=== PATIENT | female | born 2000 | race Hispanic/Latino ===

== ENCOUNTER 2021-01-08 13:20 | Outpatient (CLI) | payer OTHER, SELFPAY ==
--- NOTE | ~2021-01-08 | US_ITS ---
EXAMINATION: US thyroid DATE: 01/08/2021 14:02 INDICATION: Neck lump. TECHNIQUE: Multiple ultrasound images of the thyroid were obtained. COMPARISON: None. FINDINGS: The right thyroid lobe measures 5.3 x 1.9 x 1.4 cm. The left thyroid lobe measures 4.5 x 1.7 x 1.3 c m. In the thyroid isthmus, there is a 1.8 cm solid, hypoechoic, tyalj-yvuu-lcox nodule with smooth m argin without echogenic foci (TI-RADS TR4). IMPRESSION: 1. Thyroid nodule. Ultrasound-guided fine-needle aspiration is recommended. Reviewed, dictated and finalized at location A. R OPERATOR
[2021-01-08 15:19] LABS: Thyroid Stimulating Hormone 0.576 uIU/mL (0.465-4.680)
[2021-01-08 15:33] LABS: Free T4 Free Thyroxine 1.63 ng/mL (0.78-2.19)
[2021-01-12 06:13] LABS: Thyroid Peroxidase Antibodies 5 IU/mL (<9)
== END 2021-01-08 13:21 | disposition home or self-care (01) ==
PROVIDERS: PCP Registered Nurse; Visit Provider Registered Nurse
DX: R22.1 Localized swelling, mass and lump, neck (principal); E04.1 Nontoxic single thyroid nodule
CPT/HCPCS: 36415; 76536; 84439; 84443; 86376

== ENCOUNTER 2021-04-12 10:45 | Observation (INO) | payer OTHER, SELFPAY ==
[2021-04-12] VITALS (41 sets, daily range): BP systolic 102–123; BP diastolic 70–90; PULSE 70–108; RESP 8–26; TEMP 36.4–37.1; O2SAT 94–100; BMI 25.9
--- NOTE | ~2021-04-12 | US_ITS ---
EXAMINATION: US right upper quadrant DATE: 04/12/2021 14:16 INDICATION: Abdominal pain. Acute cholecystitis. TECHNIQUE: Multiple grayscale and Doppler ultrasound images of the abdomen were obtained. COMPARISON: CT abdomen and pelvis 04/12/2021 FINDINGS: The visualized portions of the head and body of the pancreas are normal. There is normal fl ow in main portal vein. The gallbladder is normal in size and contains gallstones. Gallbladder wall t hickening is noted. There is a positive sonographic Nina sign. The common duct is normal and measur es 5 mm. IMPRESSION: 1. Acute cholecystitis. Reviewed, dictated and finalized at location A. IMPRESSION: 1. Acute cholecystitis.
--- NOTE | ~2021-04-12 | CT_ITS ---
EXAMINATION: CT abdomen pelvis w con EXAM DATE: 04/12/2021 13:07 INDICATION: Upper abdominal pain for a week. TECHNIQUE: Spiral CT of the abdomen and pelvis was performed following intravenous injection of 100 m L Omnipaque 350. Axial, coronal and sagittal images of the abdomen and pelvis were reviewed. The do se-length product (DLP) for this examination was 294.32 mGy-cm. The exposure was tailored according to patient size (auto mA exposure control), and iterative reconstruction (ASIR) was used as additiona l dose reduction technique. There is no prior study for comparison. FINDINGS: Gallbladder mucosa is enhancing, with surrounding fluid or edematous wall. Gallbladder only mildly distended. Appearance suspicious for acute cholecystitis. No calcified cholelithiasis or bili lenard dilation. The liver, spleen, adrenal glands and pancreas are unremarkable. Kidneys enhance symmet rically, no hydronephrosis. The uterus is unremarkable. The bladder is unremarkable. There is no r etroperitoneal or pelvic lymphadenopathy. The appendix is normal. The stomach and small bowel are unremarkable. There is expected amount of c olonic stool. No free intraperitoneal gas. The heart is normal in size. There are no pericardial or pleural effusions. The lung bases are unremarkable. There are no osteoblastic or osteolytic les ions identified. IMPRESSION: Probable acute cholecystitis; recommend right upper quadrant sonogram. Reviewed, dictated and finalized at location B. IMPRESSION: Probable acute cholecystitis; recommend right upper quadrant sonogr am.
--- NOTE | 2021-04-12 10:56 | ECG_ITS ---
Measurements Intervals [place] Rate: 96 P: 53 ME: 133 QRS: 34 QRSD: 97 T: 37 QT: 345 QTc: 437 Interpretive Statements SINUS RHYTHM BASELINE ARTIFACT- I, II, III, AVR, AVL, AVF, V1-V5 NORMAL ECG Electronically Signed On 04-12-2021 11:22:18 CDT by Jake Bermudez D.O.
--- NOTE | 2021-04-12 11:21 | ED.CHESTPAIN ---
HPI - Chest Pain General Chief Complaint: Chest Pain Stated Complaint: Abd Pain/vomiting/Chest Pain Time Seen by Provider: 04/12/21 11:03 Source: patient Mode of arrival: ambulatory Limitations: no limitations History of Present Illness HPI narrative: Patient is a 21 year old female who presents with multiple complaints. Patient is reporting epigastric pain that radiates to back and also generalized abdominal pain x 3-4 days. She reports nausea without vomiting, denies constipation or diarrhea. She reports a history of colitis and colonoscopy in the past. She reports pain is worse with laying down and reports a burning sensation. Patient also reports LMP was 02/17 with the possibility of . She denies shortness of breath. She denies taking otc medications prior to arrival. MD complaint: other (epigastric pain) Related Data Home Medications Medication Instructions Recorded Confirmed bupropion HCl mg PO 04/12/21 lamotrigine 04/12/21 spironolactone 04/12/21 Allergies Allergy/AdvReac Type Severity Reaction Status Date / Time No Known Allergies Allergy Unverified 04/12/21 11:08 Review of Systems Review of Systems: Narrative: CONSTITUTIONAL: Denies fever, chills, or sweats. EYES: Denies visual changes, redness, or discharge. ENT: Denies rhinorrhea, congestion, sore throat, or otalgia. CARDIOVASCULAR: Denies chest pain, palpitations, or edema. RESPIRATORY: Denies cough or dyspnea. GASTROINTESTINAL: Reports epigastric pain intermittently x3 to 4 days with nausea, denies vomiting or diarrhea GENITOURINARY: Denies dysuria or hematuria. SKIN: Denies rash or itching. MUSCULOSKELETAL: Denies back pain, joint pain, or myalgia. NEUROLOGIC: Denies headache, numbness, dizziness, or weakness. PSYCHIATRIC: Denies anxiety or depression. 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 Please see nursing chart for further information. There is no relevant family history pertinent to the presenting complaint. Exam Narrative: Exam Narrative: GENERAL: Well-appearing, well-nourished, and in no acute distress. HEAD: Normocephalic, atraumatic. EYES: EOMI. No redness or drainage. Conjunctiva are normal. ENT: Mucous membranes pink and moist. Throat normal. Uvula midline. NECK: AROM. Supple. No lymphadenopathy. CHEST: No respiratory distress. Clear to auscultation. HEART: Regular rate and rhythm. No murmur appreciated. Normal peripheral pulses. GI: Soft, generalized tenderness with palpation. No distention. Bowel sounds normal in all quadrants. MUSCULOSKELETAL: No bony tenderness. EXTREMITIES: Normal range of motion. No edema. SKIN: Warm, dry, no rash. NEURO: No focal deficits. Alert and oriented x3. Gait steady. PSYCH: Normal affect. No signs of depression or anxiety. Course Vital Signs Vital signs: Vital Signs Pulse Rate 97 04/12/21 10:53 Respiratory Rate 19 04/12/21 10:53 Pulse Oximetry 100 04/12/21 10:53 Temperature 37.1 C 04/12/21 10:59 Pulse Rate 76 04/12/21 16:46 Respiratory Rate 18 04/12/21 16:46 Blood Pressure 106/85 04/12/21 16:45 Pulse Oximetry 100 04/12/21 16:46 Reviewed-patient is info
[2021-04-12 11:54] LABS: Basophils Percent Auto 0.5 % (0.2-1.2); Eosinophils Absolute Auto 0.1 K/mm3 (0-0.3); Eosinophils Percent Auto 0.6 % (0-4.4); Hematocrit 37.9 % (37.0-47.0); Hemoglobin 12.3 g/dL (12.0-15.0); Immature Granulocyte Absolute 0.02 K/mm3 (0.00-0.031); Immature Granulocyte Percent A 0.3 % (0-0.5); Lymphocytes Absolute Auto 1.82 K/mm3 (0.9-3.2); Lymphocytes Percent Auto 23.5 % (18.3-44.2); Mean Corpuscular HGB Conc 32.5 g/dl (32-36); Mean Corpuscular Hemoglobin 29.7 pg (26-34); Mean Corpuscular Volume 91.5 fl (80-100); Mean Platelet Volume 8.8 fl (7.4-10.4); Monocytes Absolute Auto 0.8 K/mm3 (0.1-0.6); Monocytes Percent Auto 9.9 % (2.6-8.5); Neutrophils Absolute Auto 5.1 K/mm3 (1.3-6.7); Neutrophils Percent Auto 65.2 % (45.5-73.1); Platelet Count Result 507 k/mm3 (150-375); Red Blood Count 4.14 M/mm3 (4.2-5.4); Red Cell Distribution Width 12.4 % (11.5-14.5); White Blood Count 7.8 K/mm3 (4.5-10.0)
[2021-04-12 11:56] LABS: Add Urine Microscopic? NO; Appearance Urine Clear (Clear); Bilirubin Urine Negative (Negative); Blood Urine Negative (Negative); Color Urine Straw (Yellow); Glucose Urine UA Negative (Negative); Ketones Urine Negative (Negative); Leukocyte Esterase Ur Negative LEU/UL (Negative); Nitrate Urine Negative (Negative); Protein Urine Negative (Negative); Specific Grav Ur 1.008 (1.001-1.035); Urobilinogen Urine Negative mg/dL (<2.0)
[2021-04-12 12:03] LABS: Alanine Aminotransferase 15 U/L (4-35); Albumin Level 4.4 g/dL (3.5-5.1); Alkaline Phosphatase 85 U/L (38-126); Anion Gap 10 mmol/L (8-16); Aspartate Amino Transferase 28 U/L (14-36); Bilirubin,Total 0.5 mg/dL (0.2-1.3); Blood Urea Nitrogen 10 mg/dL (7-17); Calcium 9.5 mg/dL (8.4-10.2); Carbon Dioxide 26 mmol/L (22-30); Chloride 102 mmol/L (98-107); Estimated CRCL calculation 86 ml/min; Estimated Glomerular Filt Rate > 60; Glucose 104 mg/dL (65-105); Lipase 106 U/L (23-300); Potassium 4.2 mmol/L (3.4-5.0); Sodium 138 mmol/L (137-145)
[2021-04-12] MEDS: SODIUM CHLORIDE 0.9% IV 1,000 ML 999 ML IV CONT (12:48)
[2021-04-12 13:06] LABS: D Dimer 0.27 ug/mL (<0.48)
[2021-04-12] MEDS: ONDANSETRON INJ 4 MG/2 ML VIAL IV PUSH ×2 (15:44→20:46)
[2021-04-12] MEDS: MORPHINE SULFATE (*CRX) 4 MG/ML INJ IV PUSH ×2 (15:46→21:56)
--- NOTE | 2021-04-12 15:54 | PC.NURSE ---
Meds given IV for pain and nausea. Preparing to contact surgeon for consult. Pt's call light in reach and told to call for any assist due to receiving morphine.
--- NOTE | 2021-04-12 16:55 | PC.NURSE ---
Heike Ribeiro NP, speaking with surgeon regarding plan of care.
[2021-04-12] MEDS: KETOROLAC 30 MG/ML VIAL (*BKC) IV PUSH (17:08)
--- NOTE | 2021-04-12 19:30 | ADMGEN ---
This patient, Isabel Shahid, was admitted to Medical Room 347-01. Patient/family oriented to hospital policies and general routines including ID bracelet, bed and alarms, visiting hours, pain management, procedures, bathroom and other care routines, personal items, smoking policy, room service/diet, and visiting hours. Information on how to activate the Rapid Response Team has been discussed. Patient/Family are encouraged to report perceived risks to care and to ask questions if they do not understand what they are told or what they should do.
[2021-04-12] MEDS: SODIUM CHLORIDE 0.9% IV 1,000 ML 125 ML IV CONT (19:46)
[2021-04-13] VITALS (14 sets, daily range): BP systolic 105–121; BP diastolic 63–76; PULSE 72–105; RESP 14–20; TEMP 35.7–36.7; O2SAT 94–100
[2021-04-13] MEDS: SODIUM CHLORIDE 0.9% IV 1,000 ML 125 ML IV CONT (04:48)
[2021-04-13 06:16] LABS: Hematocrit 32.5 % (37.0-47.0); Hemoglobin 10.4 g/dL (12.0-15.0); Mean Corpuscular Volume 93.7 fl (80-100); Mean Platelet Volume 8.8 fl (7.4-10.4); Platelet Count Result 388 k/mm3 (150-375); Red Blood Count 3.47 M/mm3 (4.2-5.4); Red Cell Distribution Width 12.5 % (11.5-14.5); White Blood Count 4.9 K/mm3 (4.5-10.0)
[2021-04-13] MEDS: MORPHINE SULFATE (*CRX) 4 MG/ML INJ IV PUSH ×2 (06:16→13:54)
[2021-04-13] MEDS: ONDANSETRON INJ 4 MG/2 ML VIAL IV PUSH ×2 (06:16→17:39)
[2021-04-13 06:36] LABS: Alanine Aminotransferase 12 U/L (4-35); Albumin Level 3.2 g/dL (3.5-5.1); Alkaline Phosphatase 65 U/L (38-126); Anion Gap 5 mmol/L (8-16); Aspartate Amino Transferase 18 U/L (14-36); Bilirubin,Total 0.6 mg/dL (0.2-1.3); Blood Urea Nitrogen 6 mg/dL (7-17); Calcium 8.3 mg/dL (8.4-10.2); Carbon Dioxide 26 mmol/L (22-30); Chloride 107 mmol/L (98-107); Estimated CRCL calculation 76 ml/min; Estimated Glomerular Filt Rate > 60; Glucose 94 mg/dL (65-105); Potassium 3.8 mmol/L (3.4-5.0); Sodium 138 mmol/L (137-145)
--- NOTE | 2021-04-13 06:58 | PM.IMHP ---
H&P: HPI History of Present Illness Date/Time: 04/13/21 06:59 Chief Complaint: Epigastric and right upper quadrant pain Narrative: this is a 21-year-old woman who presented to the emergency department yesterday with upper abdominal pain. Her pain started 4 days prior and initially began at night. She did not identify any particular food that caused her pain. She was having nausea and vomiting associated with this as well as some occasional sweats. She did have some diarrhea as well. Prior to this she states that she would get occasional pains at night but did not associate this with anything in particular. In the emergency department CT showed findings consistent with acute cholecystitis and a gallbladder ultrasound confirmed cholelithiasis and cholecystitis. Her labs were otherwise normal. Pain was attempted to be controlled in the emergency department, but after multiple rounds of pain meds she was still experiencing significant pain. She was then admitted for further treatment. Review of Systems Review of Systems: All systems reviewed & are unremarkable except as noted in HPI and below Constitutional: Constitutional: Denies chills and Denies fever(s) Eyes: Eyes: Denies change in vision ENT: Denies hearing loss, Denies neck pain and Denies sore throat Cardiovascular: Cardiovascular: Denies chest pain and Denies dyspnea Respiratory: Respiratory: Denies cough, Denies dyspnea and Denies wheezing Gastrointestinal: Gastrointestinal: Reports as per HPI Genitourinary: Genitourinary: Denies hematuria and Denies dysuria Musculoskeletal: Musculoskeletal: Denies arthralgias, Denies joint swelling and Denies neck pain Allergic/Immunologic: Allergic/Immunologic: Denies wheezing [facility] Past Medical History Medical History Colitis Thyroid nodule 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, 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 Surgical History Surgical History History of colonoscopy Family History Family History Grandparent Diabetes mellitus Hypertension Grandparent Diabetes mellitus Hypertension Father Acute myocardial infarction Hypertension Grandparent Hypertension Grandparent Hypertension Social History Social History Smoking status: Never smoker Additional smoking assessment comments: Pt states that she smoked a herbal cigarette 2 days ago, does not routinely Alcohol intake: current Alcohol use details: Occasional Substance use: never Other substance usage details: does not even drink one alcoholic drink/week Living arrangements: with family Gender identity (if verbalized by the patient): Female Spiritual care concerns: No Meds Home Medications and Allergies Home Medications Medication Instructions Recorded Confirmed Type bupropion HCl 300 mg PO DAILY 04/12/21 04/12/21 History lamotrigine See Rx Instructions .ROUTE .COMPLEX 04/12/21 04/12/21 History spironolactone 50 mg PO DAILY 04/12/21 04/12/21 History Allergies Allergy/AdvReac Type Severity Reaction Status Date / Time No Known Allergies Allergy Verified 04/12/21 19:58 Vital Signs Vital Signs - 24 hr 04/12/21 10:53 04/12/21 10:54 04/12/21 10:59 Temperature 37.1 C Pulse Rate 97 105 H 106 H Respiratory Rate 19 17 18 Blood Pressure 120/86 120/86 Pulse Oximetry 100 100 100 04/12/21 11:01 04/12/21 11:05 04/12/21 11:15 Temperature Pulse Rate 94 106 H 89 Respiratory Rate 18 18 Blood Pressure 109/84 Pulse Oximetry 100 100 04/12/21 11:16 04/12/21 11:30 04/12/21 11:31 Temperature Pulse Rate 95 84 95 Respiratory Rate 14 15 18 Blood Pressure 113/76 Pulse Oximetry 100 100 100 04/12/21 11:46 04/12/21 12:00 04/12/21 12:15 Temperature Pulse Rate Respiratory Rate Blood Pressure Pul
--- NOTE | 2021-04-13 07:25 | PC.NURSE ---
Patient to OR per bed. Report to OR per DAVIN Bower. Consent signed and on the chart.
[2021-04-13 07:26] LABS: Beta HCG Quantitative < 2.39 mIU/ML
--- NOTE | 2021-04-13 07:29 | WPDHPUPDATE1 ---
History and Physical Update Update Date/Time: 04/13/21 07:29 History and Physical has been reviewed, including an updated exam of the patient. There are NO changes in the patient's condition. Risks, benefits, and alternatives have been discussed and questions answered. Patient agrees to proceed with procedure.
--- NOTE | 2021-04-13 07:34 | WPDANESEPPF ---
Anes - Initial Pre Proc Eval Procedure: Operation Date: 04/13/21 07:30 Proposed Procedures p Laparoscopic Cholecystectomy - Kameron Toledo DO Date/Time: 04/13/21 07:34 Surgeon: Kameron Toledo DO Pre Op Diagnosis: Acute cholecystitis Patient Data Age: 21 Gender: F Height: 5 ft 2 in Weight: 64.5 kg Last Vital Signs Temp 36.1 C L 04/13/21 04:46 Pulse 73 04/13/21 04:46 Resp 17 04/13/21 04:46 BP 105/63 04/13/21 04:46 Pulse Ox 100 04/13/21 04:46 Allergies Allergy/AdvReac Type Severity Reaction Status Date / Time No Known Allergies Allergy Verified 04/12/21 19:58 Home Medications Medication Instructions Recorded Confirmed Type bupropion HCl 300 mg PO DAILY 04/12/21 04/12/21 History lamotrigine See Rx Instructions .ROUTE .COMPLEX 04/12/21 04/12/21 History spironolactone 50 mg PO DAILY 04/12/21 04/12/21 History Laboratory Tests 04/12/21 04/12/21 04/12/21 11:37 11:37 11:44 WBC 7.8 K/mm3 K/mm3 (4.5-10.0) RBC 4.14 M/mm3 L M/mm3 (4.2-5.4) Hgb 12.3 g/dL g/dL (12.0-15.0) Hct 37.9 % % (37.0-47.0) MCV 91.5 fl fl (80-100) MCH 29.7 pg pg (26-34) MCHC 32.5 g/dl g/dl (32-36) RDW 12.4 % % (11.5-14.5) Plt Count 507 k/mm3 H k/mm3 (150-375) MPV 8.8 fl fl (7.4-10.4) Immature Gran % (Auto) 0.3 % % (0-0.5) Neut % (Auto) 65.2 % % (45.5-73.1) Lymph % (Auto) 23.5 % % (18.3-44.2) [place]oup % (Auto) 9.9 % H % (2.6-8.5) Eos % (Auto) 0.6 % % (0-4.4) Baso % (Auto) 0.5 % % (0.2-1.2) Lymph # (Auto) 1.82 K/mm3 K/mm3 (0.9-3.2) [place]oup # (Auto) 0.8 K/mm3 H K/mm3 (0.1-0.6) Eos # (Auto) 0.1 K/mm3 K/mm3 (0-0.3) Baso # (Auto) 0.0 K/mm3 K/mm3 (0.0-0.1) Abs Immat Gran (auto) 0.02 K/mm3 K/mm3 (0.00-0.031) Absolute Neuts (auto) 5.1 K/mm3 K/mm3 (1.3-6.7) Absolute Nucleated RBC 0.0 K/mm3 K/mm3 (0.0-0.012) Nucleated RBC % 0.0 % % (0.0-0.2) D-Dimer Sodium 138 mmol/L mmol/L (137-145) Potassium 4.2 mmol/L mmol/L (3.4-5.0) Chloride 102 mmol/L mmol/L (98-107) Carbon Dioxide 26 mmol/L mmol/L (22-30) Anion Gap 10 mmol/L mmol/L (8-16) BUN 10 mg/dL mg/dL (7-17) Creatinine 0.70 mg/dL mg/dL (0.7-1.0) Estim Creat Clear Calc 86 ml/min ml/min Estimated GFR > 60 (59 - ) Glucose 104 mg/dL mg/dL (65-105) Calcium 9.5 mg/dL mg/dL (8.4-10.2) Total Bilirubin 0.5 mg/dL mg/dL (0.2-1.3) AST 28 U/L U/L (14-36) ALT 15 U/L U/L (4-35) Alkaline Phosphatase 85 U/L U/L (38-126) Total Protein 8.0 g/dL g/dL (6.3-8.2) Albumin 4.4 g/dL g/dL (3.5-5.1) Lipase 106 U/L U/L (23-300) Beta HCG, Quant Urine Color Straw (Yellow) Urine Appearance Clear (Clear) Urine pH 8.0 (5.0-9.0) Ur Specific Waddy 1.008 (1.001-1.035) Urine Protein Negative mg/dL mg/dL (Negative) Urine Glucose (UA) Negative mg/dL mg/dL (Negative) Urine Ketones Negative mg/dL mg/dL (Negative) Ur Blood (Man) Negative (Negative) Urine Nitrate Negative (Negative) Urine Bilirubin Negative (Negative) Urine Urobilinogen Negative mg/dL mg/dL (<2.0) Leukocyte Esterase Rfl Negative [facility]/UL K[facility]/UL (Negative) Blood Type Antibody Screen 04/12/21 04/12/21 04/13/21 12:37 22:20 05:43 WBC 4.9 K/mm3 K/mm3 (4.5-10.0) RBC 3.47 M/mm3 L M/mm3 (4.2-5.4) Hgb 10.4 g/dL L g/dL (12.0-15.0) Hct 32.5 % L % (37.0-47.0) MCV 93.7 fl fl (80-100) MCH 30.0 pg pg (26-34)
[2021-04-13] MEDS: ceFAZolin 2 GM/D5W 50 ML 2 GM/50 ML BAG IVPB (07:37)
[2021-04-13] MEDS: BUPIVACAINE/EPINEPHRINE 0.5% 10 ML VIAL 30 ML INFILTRATE (07:56)
--- NOTE | 2021-04-13 08:23 | PM.PROC ---
Procedure Note - Detailed Date of procedure: 04/13/21 Pre-op diagnosis: Acute cholecystitis Post-op diagnosis: same Procedure performed: Laparoscopic Cholecystectomy Description of procedure: Procedure as well as risks, benefits, and alternatives were discussed with patient. Written consent was obtained and placed in chart prior to procedure. The patient was brought back to surgical suite. Patient was placed in supine position on operating table. Time-out was done to confirm patient and procedure. Patient was then intubated by the anesthesia department. Abdomen was prepped and draped in sterile fashion using chlorhexidine prep. 0.5% bupivacaine with epinephrine was infiltrated at each site of incision. An 11 millimeter vertical incision was made at the inferior portion of the umbilicus using a 15 blade scalpel. Blunt dissection was carried down to the linea alba. The linea alba was then incised using a 15 blade scalpel. The peritoneum was then bluntly entered. An 11 millimeter trocar was inserted and cabon dioxied insuflation was used to create a pneumoperitoneum. The camera was inserted and the abdomen was inspected. The patient was placed in reverse Trendelenberg position and rotated slightly to the left. A 5 millimeter incision was made in the epigastric region, and a 5 millimeter trocar was inserted under direct visualization. Two 5 millimeter incisions were made in the right upper quadrant, and two 5 millimeter trocars were inserted under direct visualization. The gallbladder was identified and grasped at the fundus and retracted superiorly. It was then grasped at the infundibulum retracted laterally. Careful dissection around the neck of the gallbladder was performed using blunt dissection with a [place] grasper and hook electrocautery. The cystic duct was identified, and a window was created behind it. The cystic artery was also identified and a window was created behind it. The critical view of safety was identified, visualizing the cystic duct running directly into the neck of the gallbladder, and the cystic artery running directly into the wall of the gallbladder. A 5 millimeter clip college tutor was then used to place 2 clips proximally and 1 clip distally on both the cystic duct and cystic artery. They were then both transected using endoscopic scissors. Once safely away from the zheng hepatitis, the gallbladder was dissected free from the liver bed using hook electrocautery. Hemostasis was achieved along the way. The gallbladder was removed completely and then removed through the umbilical port. The liver bed was then inspected. Hemostasis appeared adequate, and our clips appeared secure. The area was gently irrigated with sterile saline. No other abnormalities were seen. The patient was flattened out in bed, and 1 final inspection was made around the abdominal cavity. The ports were then removed under direct visualization, the camera was removed, and the pneumoperitoneum was released. The fascia of the umbilical incision was approximated using an 0 Vicryl [id number] suture. The skin of the incisions was approximated using 4-0 Monocryl subcuticular sutures. Exofin glue was applied on top. The patient was then awakened from anesthesia, extubated, and transferred to recovery. Anesthesia: GETA and local (0.5% bupivicaine with epinephrine) Surgeon: Kameron Toledo DO Estimated blood loss (mL): 10 Pathology: yes (gallbladder) Complications: No immediate complications Condition: stable Disposition: floor Findings: This is a 21-year-old woman who presented to the emergency department yesterday with upper abdominal pain with nausea and vomiting. She had been experiencing symptoms off and on for the past 4 days. Pain then became constant. In the emergency department a CT and ultrasound were obtained that showed evidence of acute calculous cholecystitis. Her pain was unable to be controlled with a couple doses of pain meds, theref
[2021-04-13] MEDS: LACTATED RINGERS 1,000 ML 30 ML IV CONT ×2 (08:24→08:36)
[2021-04-13] MEDS: fentaNYL CITRATE INJ (*CRX) 100 MCG/2 ML VIAL 25 MCG IV PUSH ×4 (08:52→09:17)
--- NOTE | 2021-04-13 09:43 | PC.NURSE ---
Pt returned from OR per bed. Report from DAVIN Boland.
[2021-04-13] MEDS: buPROPion HCL XL (24 HR) 150 MG TABCR 300 MG PO (10:15)
[2021-04-13] MEDS: SPIRONOLACTONE 50 MG TABLET PO (10:15)
[2021-04-13] MEDS: HYDROcodone/acetaminophen (*CRX) 5-325 MG TABLET 1 TAB PO (10:18)
[2021-04-13] MEDS: IBUPROFEN 600 MG TABLET PO ×2 (12:54→23:06)
[2021-04-13] MEDS: HYDROcodone/acetaminophen (*CRX) 7.5-325 MG TABLET 1 TAB PO ×2 (16:44→21:07)
[2021-04-14 00:17] VITALS: BP 110/55; PULSE 91; RESP 18; TEMP 36.9; O2SAT 100
[2021-04-14 05:06] VITALS: BP 104/69; PULSE 89; RESP 16; TEMP 36.4; O2SAT 100
[2021-04-14] MEDS: buPROPion HCL XL (24 HR) 150 MG TABCR 300 MG PO (09:17)
[2021-04-14] MEDS: SPIRONOLACTONE 50 MG TABLET PO (09:17)
[2021-04-14 09:21] VITALS: O2SAT 100
[2021-04-14] MEDS: HYDROcodone/acetaminophen (*CRX) 5-325 MG TABLET 1 TAB PO (12:22)
--- NOTE | 2021-04-14 13:56 | PM.DS ---
DS: Admitting Diagnosis Admitting Diagnosis Admitting Diagnosis: Acute calculous cholecystitis. DS: Discharge Diagnosis Discharge Diagnosis (1) Acute calculous cholecystitis: Code(s): K80.00 - Calculus of gallbladder with acute cholecystitis without obstruction Status: Acute DS: Summary Hospital Course Reason for hospitalization: Acute calculous cholecystitis. Hospital Course: This is a 21-year-old woman who presented to the emergency department on 04/12/2021 with right upper quadrant abdominal pain. CT showed evidence of acute calculous cholecystitis. Her white blood count and liver enzymes were normal. She was given some pain meds in the emergency department in an attempt to adequately control her pain and possibly send her home. Pain was unable to be adequately controlled, therefore she was admitted for further treatment. She underwent laparoscopic cholecystectomy on 04/13/2021. Surgery was uncomplicated and patient was returned to the surgical floor postoperatively. Her diet and activity were advanced as tolerated. She was still experiencing some significant postoperative pain and was also somewhat nauseated with poor appetite, therefore she was kept in the hospital overnight 1 more night and was re-evaluated in the morning. On postop day 1 she was doing well and tolerating a low-fat diet. She remained hemodynamically stable. She was then discharged home. Status at Discharge Functional status at discharge: independent ambulation Overall status at discharge: patient is progressing back to baseline Time Spent with Patient Time attestation: Total time spent providing and/or coordinating discharge services: Time spent: Less than 30 minutes Exam GI: Inspection: non-distended and incision ( Intact with glue) GI Palp: Yes Soft to palpation, Yes Tenderness to palpation present (GI) ( incisional) and No Guarding due to palpation present (GI) DS: Data Data Completed and Pending Pending studies at discharge: Pending at discharge 04/13/21 07:50 Surgical [PTH] Routine Imaging Radiologist's impression: ITS Impressions Abdomen/Pelvis CT 04/12/21 13:10 IMPRESSION: Probable acute cholecystitis; recommend right upper quadrant sonogram. Upper Quadrant Ultrasound 04/12/21 14:19 IMPRESSION: 1. Acute cholecystitis. Discharge Plan Discharge Attending physician on discharge: Kameron Bronson Discharging Clinician: Kameron Bronson Patient Disposition: Home, Self-Care Activity: may shower Diet: low fat Wound Care Instructions: follow printed instructions Discharge Instructions: DISCHARGE INSTRUCTION SHEET FOR HERNIA, GALLBLADDER AND APPENDIX SURGERIES DR. BRONSON PATIENT TO TAKE HOME 1. May shower, no soaking in bath x 2weeks. 2. Call office for: Wound increasingly painful or bleeding Vomiting Fever of greater than 101 degrees 3. If no bowel movement for three days, take 1 oz. (30 ml) Milk of Magnesia or MiraLax 17g 1 to 2 times daily. 4. No heavy lifting > 10-15 pounds x weeks for hernia repairs and 2 weeks for laparoscopic cholecystectomy or appendectomy. 5. No driving for 3 days or while taking narcotic pain medications. 6. Ice to surgical site for 48 hours (30 min on, then 30 min off). 7. Up walking 10-30 minutes three times per day. 8. Resume previous home medications. 9. Follow-up 10-14 days in office for wound check or as previously scheduled. ([id number]) 10. Oral pain medications prescription to be sent to pharmacy. Take Tylenol 500mg every 6 hours and Ibuprofen 600mg every 6 hours for the first 2 days, then as needed. 11. NUTRITION: Start out by drinking fluids and increase your diet as tolerated. If you experience nausea, try dry toast, crackers, and 7-UP. If nausea or vomiting persists, contact your surgeon?s office. 12. Gallbladders-Low Fat Diet for 2 weeks (send
== END 2021-04-14 14:30 | disposition home or self-care (01) ==
LOC: ANHED 18:15 → ANH3MED 18:36
PROVIDERS: Admitting Provider Surgery; Emergency Provider Nurse Practitioner; PCP Registered Nurse; Visit Provider Surgery
PROC: 0FT44ZZ Resection of Gallbladder, Percutaneous Endoscopic Approach (ICD-10-PCS; CPT 47562; principal; 2021-04-13 07:30)
DX: K80.10 Calculus of gallbladder with chronic cholecystitis without obstruction (principal)
CPT/HCPCS: 47562; 36415; 74177; 76705; 80053; 81003; 81025; 83690; 84702; 85025; 85027; 85380; 86850; 86900; 86901; 88304; 93005; 96361; 96374; 96375; 96376; 99285; A9270; G0378; G0379; J0131; J0690; J1100; J1170; J1885; J2250; J2270; J2370; J2405; J2710; J3010; J7030; J7120; Q9967

== ENCOUNTER 2021-05-16 13:42 | Outpatient (CLI) | payer OTHER, SELFPAY ==
--- NOTE | ~2021-05-16 | NM_ITS ---
EXAMINATION: NM thyroid scan w uptake DATE: 05/17/2021 14:40 INDICATION: Nontoxic single thyroid nodule. COMPARISON: Ultrasound 01/08/2021 TECHNIQUE: 0.318 mCi I-123 was administered orally. Scintigraphic images of the thyroid gland were o btained at 24 hours. Thyroid uptake was calculated by the technologist. FINDINGS: The thyroid uptake is 35% (normal 10-30%), with the right lobe measuring 19% uptake and the left 17%. There is a hypoactive nodule in the thyroid isthmus. IMPRESSION: 1. Hypoactive nodule in the thyroid isthmus. Ultrasound-guided fine-needle aspiration is recommended. 2. Mildly increased 24-hour iodine uptake of uncertain clinical significance. Correlate with thyroid function tests to exclude Graves' disease. Reviewed, dictated and finalized at location A. IMPRESSION: 1. Hypoactive nodule in the thyroid isthmus. Ultrasound-guided fine-needle aspi ration is recommended. 2. Mildly increased 24-hour iodine uptake of uncertain clinical significance. C orrelate with thyroid function tests to exclude Graves' disease.
[2021-05-16 14:52] LABS: Alanine Aminotransferase 12 U/L (4-35); Albumin Level 4.6 g/dL (3.5-5.1); Alkaline Phosphatase 83 U/L (38-126); Anion Gap 9 mmol/L (8-16); Aspartate Amino Transferase 26 U/L (14-36); Blood Urea Nitrogen 9 mg/dL (7-17); Calcium 9.5 mg/dL (8.4-10.2); Carbon Dioxide 30 mmol/L (22-30); Chloride 98 mmol/L (98-107); Estimated Glomerular Filt Rate > 60; Glucose 98 mg/dL (65-105); Potassium 4.1 mmol/L (3.4-5.0); Sodium 137 mmol/L (137-145)
[2021-05-16 15:22] LABS: Thyroid Stimulating Hormone 0.658 uIU/mL (0.465-4.680)
[2021-05-16 15:45] LABS: Vitamin D 25 Hydroxy 26.5 ng/mL
[2021-05-19 05:39] LABS: DHEA-Sulfate 253 mcg/dL (18-391); Thyroid Peroxidase Antibodies 4 IU/mL (<9)
[2021-05-19 08:57] LABS: Triiodothyronine T3 Free 3.3 pg/mL (2.3-4.2)
[2021-05-19 21:54] LABS: Testosterone Total 26 ng/dL (2-45)
[2021-05-24 15:05] LABS: Thyroid Stimulating Immunoglob <89 % baseline (<140)
== END 2021-05-16 13:43 | disposition home or self-care (01) ==
PROVIDERS: PCP Registered Nurse; Visit Provider Internal Medicine Endocrinology, Diabetes & Metabolism
DX: E04.1 Nontoxic single thyroid nodule (principal)
CPT/HCPCS: 36415; 78014; 80053; 82306; 82627; 84403; 84439; 84443; 84445; 84481; 86376; A9516

== ENCOUNTER 2021-05-30 12:55 | Outpatient (CLI) | payer OTHER, SELFPAY ==
--- NOTE | ~2021-05-30 | US_ITS ---
EXAMINATION: US FNA w image guidance DATE: 05/30/2021 13:44 INDICATION: Nontoxic single thyroid nodule TECHNIQUE: A time-out was performed to verify the patient's name, date of , and procedure to be performed . The procedure and its benefits and risks were discussed with the patient. Risks specifically discus sed included bleeding and infection. The patient understood the risks and agreed to proceed. The neck was prepped and draped in the usual sterile manner. 3 mL 1% lidocaine was used for local anesthesia . 6 passes were made with a 25G needle into the lesion. Appropriate needle location was documented with continuous sonographic guidance. The specimens were passed to the certified cytotechnologist in the room. A sterile bandage was applied. There were no immediate complications. FINDINGS: Grayscale ultrasound images demonstrate biopsy needles advanced into a solid 2.2 cm TI RADS 4 nodule at the thyroid isthmus. IMPRESSION: 1. Successful ultrasound-guided fine needle aspiration of a 2.2 cm TI RADS 4 nodule at the thyroid i sthmus. Reviewed, dictated and finalized at location A. IMPRESSION: 1. Successful ultrasound-guided fine needle aspiration of a 2.2 cm TI RADS 4 n odule at the thyroid isthmus.
== END 2021-05-30 12:56 | disposition home or self-care (01) ==
PROVIDERS: PCP Registered Nurse; Visit Provider Internal Medicine Endocrinology, Diabetes & Metabolism
DX: E04.1 Nontoxic single thyroid nodule (principal)
CPT/HCPCS: 10005; 88173; 88305

== ENCOUNTER 2021-08-27 09:49 | Outpatient (CLI) | payer OTHER, SELFPAY ==
[2021-08-27 10:37] LABS: Alanine Aminotransferase 13 U/L (4-35); Albumin Level 4.1 g/dL (3.5-5.1); Alkaline Phosphatase 57 U/L (38-126); Anion Gap 4 mmol/L (8-16); Aspartate Amino Transferase 26 U/L (14-36); Bilirubin,Total 0.3 mg/dL (0.2-1.3); Blood Urea Nitrogen 11 mg/dL (7-17); Carbon Dioxide 29 mmol/L (22-30); Chloride 105 mmol/L (98-107); Estimated Glomerular Filt Rate > 60; Glucose 98 mg/dL (65-110); Potassium 4.2 mmol/L (3.4-5.0); Sodium 138 mmol/L (137-145)
[2021-08-27 10:54] LABS: Free T4 Free Thyroxine 1.12 ng/mL (0.78-2.19)
[2021-08-27 11:29] LABS: Hemoglobin A1C 5.3 % (<5.7)
[2021-08-30 04:36] LABS: Insulin Level Total 5.9 uIU/mL (<=19.6); Thyroid Peroxidase Antibodies 4 IU/mL (<9)
[2021-08-30 06:52] LABS: Triiodothyronine T3 Free 3.4 pg/mL (2.3-4.2)
== END 2021-08-27 09:50 | disposition home or self-care (01) ==
PROVIDERS: PCP Registered Nurse; Visit Provider Internal Medicine Endocrinology, Diabetes & Metabolism
DX: R73.01 Impaired fasting glucose (principal); E04.1 Nontoxic single thyroid nodule
CPT/HCPCS: 36415; 80053; 83036; 83525; 84439; 84443; 84481; 86376

== ENCOUNTER 2021-10-31 21:54 | Emergency (ER) | payer OTHER, SELFPAY ==
--- NOTE | ~2021-10-31 | CT_ITS ---
EXAMINATION: CT abdomen pelvis w con DATE: 10/31/2021 23:29 INDICATION: Right-sided abdominal pain TECHNIQUE: Computed tomography (CT) of the abdomen and pelvis was performed with 100 mL Omnipaque-350 intravenous contrast. Automated exposure control and iterative reconstruction technique were employe d. The dose-length product was 393.00 mGy-cm. COMPARISON: 04/12/2021 FINDINGS: Lung bases are clear. Heart size is normal. No pericardial or pleural effusion. Common bile duct is m ildly dilated to 8 mm which is within normal limits post cholecystectomy with surgical clips the gall bladder fossa. No evident obstructing mass or stone at the distal duct and no intrahepatic biliary du ctal dilation. Liver, pancreas, spleen, bilateral adrenal glands and kidneys are normal. Normal appen melyssa. Bowels are unremarkable with no wall thickening or obstruction. Bladder, anteverted uterus and b ilateral adnexa are unremarkable. No free intraperitoneal gas or fluid. No pathologically enlarged ab dominal or pelvic lymphadenopathy. Bones are unremarkable. IMPRESSION: 1. Normal appendix. No acute intra-abdominal/pelvic process. Reviewed, dictated and finalized at location H. CLAMPER
[2021-10-31 21:57] VITALS: BP 142/92; PULSE 99; RESP 18; TEMP 36.3; O2SAT 100
[2021-10-31] MEDS: ONDANSETRON INJ 4 MG/2 ML VIAL IV PUSH (22:56)
[2021-10-31] MEDS: MORPHINE SULFATE (*CRX) 4 MG/ML INJ IV PUSH (22:58)
[2021-10-31 22:59] LABS: Basophils Percent Auto 0.5 % (0.2-1.2); Eosinophils Absolute Auto 0.1 K/mm3 (0-0.3); Hematocrit 39.2 % (37.0-47.0); Hemoglobin 12.9 g/dL (12.0-15.0); Immature Granulocyte Absolute 0.02 K/mm3 (0.00-0.031); Immature Granulocyte Percent A 0.3 % (0-0.5); Lymphocytes Absolute Auto 3.22 K/mm3 (0.9-3.2); Mean Corpuscular HGB Conc 32.9 g/dl (32-36); Mean Corpuscular Hemoglobin 29.6 pg (26-34); Mean Corpuscular Volume 89.9 fl (80-100); Mean Platelet Volume 9.1 fl (7.4-10.4); Monocytes Absolute Auto 1.3 K/mm3 (0.1-0.6); Monocytes Percent Auto 16.9 % (2.6-8.5); Neutrophils Percent Auto 39.3 % (45.5-73.1); Platelet Count Result 359 k/mm3 (150-375); Red Blood Count 4.36 M/mm3 (4.2-5.4); White Blood Count 7.7 K/mm3 (4.5-10.0)
[2021-10-31 23:05] LABS: Add Urine Microscopic? YES; Appearance Urine Clear (Clear); Bilirubin Urine Negative (Negative); Blood Urine 2+ (Negative); Color Urine Yellow (Yellow); Glucose Urine UA Negative (Negative); Ketones Urine Negative (Negative); Leukocyte Esterase Ur Negative LEU/UL (Negative); Nitrate Urine Negative (Negative); Protein Urine Negative (Negative); Specific Grav Ur 1.014 (1.001-1.035); Squamous Epithelial Cell Urine Few /hpf (Few); Urobilinogen Urine Negative mg/dL (<2.0); WBC Urine 0-3 /hpf
[2021-10-31 23:12] LABS: Alanine Aminotransferase 12 U/L (4-35); Albumin Level 4.2 g/dL (3.5-5.1); Alkaline Phosphatase 64 U/L (38-126); Anion Gap 7 mmol/L (8-16); Aspartate Amino Transferase 21 U/L (14-36); Bilirubin,Total 0.3 mg/dL (0.2-1.3); Blood Urea Nitrogen 15 mg/dL (7-17); Calcium 9.1 mg/dL (8.4-10.2); Carbon Dioxide 25 mmol/L (22-30); Chloride 99 mmol/L (98-107); Estimated CRCL calculation 91 ml/min; Estimated Glomerular Filt Rate > 60; Glucose 96 mg/dL (65-110); Lipase 126 U/L (23-300); Potassium 3.8 mmol/L (3.4-5.0); Sodium 131 mmol/L (137-145)
[2021-10-31 23:46] VITALS: BP 120/78; PULSE 89; RESP 16; O2SAT 100
--- NOTE | 2021-10-31 23:53 | ED.ABDPAIN ---
HPI - Abdominal Pain General Chief Complaint: Abdominal Pain Stated Complaint: abdominal pain Time Seen by Provider: 10/31/21 22:34 History of Present Illness HPI narrative: Patient is a 21-year-old female who presents ER with right-sided abdominal pain. Ongoing for 2 days. Associate with nausea. She also endorses constipation. Reports she is only been having 1 bowel movement a week for the last 3 weeks. No fevers or chills or sweats. No abdominal distention or vomiting. Cannot identify any aggravating or alleviating factors for her discomfort. Pain is in the right upper and lower quadrant and is without radiation. Denies urinary symptoms. Related Data Home Medications Medication Instructions Recorded Confirmed bupropion HCl 300 mg PO DAILY 04/12/21 04/26/21 lamotrigine See Rx Instructions .ROUTE .COMPLEX 04/12/21 04/26/21 spironolactone 50 mg PO DAILY 04/12/21 04/26/21 Allergies Allergy/AdvReac Type Severity Reaction Status Date / Time No Known Allergies Allergy Verified 10/31/21 22:40 Review of Systems Review of Systems: All systems reviewed & are unremarkable except as noted in HPI and below Constitutional: Constitutional: Denies chills, Denies fever(s) and Denies weakness ENT: Denies nasal congestion and Denies sore throat Gastrointestinal: Gastrointestinal: Reports abdominal pain, Denies bloating, Reports constipation, Denies diarrhea, Reports nausea and Denies vomiting Genitourinary: Genitourinary: Denies nocturia, Denies dysuria and Denies flank pain Musculoskeletal: Musculoskeletal: Denies back pain and Denies muscle cramps PMFSH Past Medical History Medical History ADHD Colitis Thyroid nodule 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, 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 Surgical History Surgical History History of colonoscopy Hx laparoscopic cholecystectomy 04/13/21 Family History Family History Grandparent Diabetes mellitus Hypertension Grandparent Diabetes mellitus Hypertension Father Acute myocardial infarction Hypertension Grandparent Hypertension Grandparent Hypertension Social History Social History Smoking status: Never smoker Additional smoking assessment comments: Pt states that she smoked a herbal cigarette 2 days ago, does not routinely Alcohol intake: current Alcohol use details: Occasional Substance use: never Other substance usage details: does not even drink one alcoholic drink/week Gender identity (if verbalized by the patient): Female Spiritual care concerns: No Exam Narrative: GENERAL: Well-appearing, well-nourished, and in no acute distress. HEAD: Normocephalic, atraumatic. NECK: Supple. CHEST: Clear to auscultation. No respiratory distress. HEART: Regular rate and rhythm. Normal peripheral pulses. ABDOMEN: Soft, tender palpation in the right upper quadrant and right lower quadrant with voluntary guarding, nondistended. EXTREMITIES: Normal range of motion. No edema. SKIN: Warm, dry, no rash. NEURO: Alert and oriented x3. PSYCH: Normal mood and flat affect. Course Course Emergency Course: Patient informed results. Given reassurance. Discharge home. Vital Signs Vital signs: Vital Signs Temperature 97.4 F L 10/31/21 21:57 Pulse Rate 99 10/31/21 21:57 Respiratory Rate 18 10/31/21 21:57 Blood Pressure 142/92 H 10/31/21 21:57 Pulse Oximetry 100 10/31/21 21:57 Temperature 97.4 F L 10/31/21 21:57 Pulse Rate 89 10/31/21 23:46 Respiratory Rate 16 10/31/21 23:46 Blood Pressure 120/78 10/31/21 23:46 Pulse Oximetry 100 10/31/21 23:46 MDM - Abdominal Pain Lab Data Result diagrams: 10/31/21 22:41 10/31/21 22:41 Labs: Lab Results 10/31/21 10/31/21 10/31/21 Range/Units 22
[2021-11-01 00:47] VITALS: BP 104/70; PULSE 92; RESP 16; O2SAT 100
== END 2021-11-01 00:50 | disposition home or self-care (01) ==
PROVIDERS: Emergency Medicine; Emergency Provider Emergency Medicine; PCP Registered Nurse
DX: R10.9 Unspecified abdominal pain (principal); F90.9 Attention-deficit hyperactivity disorder, unspecified type; E04.1 Nontoxic single thyroid nodule
CPT/HCPCS: 36415; 74177; 80053; 81001; 81025; 83690; 85025; 96374; 96375; 99284; J2270; J2405; Q9967

== ENCOUNTER 2021-12-10 14:39 | Outpatient (CLI) | payer OTHER, SELFPAY ==
--- NOTE | ~2021-12-10 | US_ITS ---
EXAMINATION: US thyroid EXAM DATE: 12/10/2021 15:24 INDICATION: Thyroid nodule. TECHNIQUE: Multiple grayscale and Doppler images of the thyroid were obtained (by a technologist who performed the scan) and subsequently reviewed. Individual nodules and recommendations may be reporte d in accordance with TI-RADS system as designated by the 2017 ACR White Paper TI-RADS committee. Comp dennisson is made to prior examination from 01/08/2021. FINDINGS: The right there are lobe measures 5.2 x 1.8 x 1.4 cm, the left measuring 5.4 x 1.5 x 1.3 cm. Mildly d iffusely heterogeneous thyroid echogenicity, dimensions are mildly enlarged. Again there is a nodule in the thyroid isthmus, today measures 2.3 x 1.6 x 2.1 cm (previous dimension s provided at 1.8 x 1.8 x 1.4 cm. Category TR 4 nodule with increase in size. Reportedly this was pre viously biopsied, correlate with histology. IMPRESSION: 1. Mild increase in size of previously biopsied nodule; correlate with prior histology. 2. Goiter. Reviewed, dictated and finalized at location G. GER OF MARKETING IMPRESSION: 1. Mild increase in size of previously biopsied nodule; correlate with prior h istology. 2. Goiter.
[2021-12-10 16:33] LABS: Alanine Aminotransferase 12 U/L (4-35); Albumin Level 4.1 g/dL (3.5-5.1); Alkaline Phosphatase 54 U/L (38-126); Anion Gap 4 mmol/L (8-16); Aspartate Amino Transferase 20 U/L (14-36); Bilirubin,Total 0.4 mg/dL (0.2-1.3); Blood Urea Nitrogen 12 mg/dL (7-17); Carbon Dioxide 27 mmol/L (22-30); Chloride 104 mmol/L (98-107); Estimated Glomerular Filt Rate > 60; Glucose 104 mg/dL (65-110); Potassium 3.8 mmol/L (3.4-5.0); Sodium 135 mmol/L (137-145)
[2021-12-10 17:34] LABS: Free T4 Free Thyroxine 0.96 ng/mL (0.78-2.19)
[2021-12-10 19:24] LABS: Hemoglobin A1C 5.5 % (<5.7)
== END 2021-12-10 14:40 | disposition home or self-care (01) ==
PROVIDERS: PCP Registered Nurse; Visit Provider Internal Medicine Endocrinology, Diabetes & Metabolism
DX: E04.1 Nontoxic single thyroid nodule (principal); E04.9 Nontoxic goiter, unspecified
CPT/HCPCS: 36415; 76536; 80053; 83036; 84439; 84443; 84481

== ENCOUNTER 2021-12-19 09:33 | Outpatient (CLI) | payer OTHER, SELFPAY ==
[2021-12-19 10:38] LABS: Hemoglobin A1C 5.4 % (<5.7)
[2021-12-19 10:39] LABS: Alanine Aminotransferase 12 U/L (4-35); Albumin Level 4.2 g/dL (3.5-5.1); Alkaline Phosphatase 70 U/L (38-126); Anion Gap 5 mmol/L (8-16); Aspartate Amino Transferase 23 U/L (14-36); Bilirubin,Total 0.6 mg/dL (0.2-1.3); Blood Urea Nitrogen 8 mg/dL (7-17); Calcium 9.3 mg/dL (8.4-10.2); Carbon Dioxide 26 mmol/L (22-30); Chloride 105 mmol/L (98-107); Cholesterol 230 mg/dL (0-200); Estimated Glomerular Filt Rate > 60; Glucose 100 mg/dL (65-110); HDL Direct 64 mg/dL; Potassium 4.2 mmol/L (3.4-5.0); Sodium 136 mmol/L (137-145); Triglycerides 119 mg/dL (<150)
[2021-12-19 10:50] LABS: LDL Cholesterol Direct 127 mg/dL
[2021-12-19 11:09] LABS: Thyroid Stimulating Hormone 0.787 uIU/mL (0.465-4.680)
[2021-12-19 11:22] LABS: Free T4 Free Thyroxine 1.38 ng/mL (0.78-2.19)
[2021-12-22 03:21] LABS: Insulin Level Total 8.7 uIU/mL (<=19.6); Thyroid Peroxidase Antibodies 5 IU/mL (<9)
[2021-12-22 07:17] LABS: Triiodothyronine T3 Free 3.3 pg/mL (2.3-4.2)
== END 2021-12-19 09:34 | disposition home or self-care (01) ==
LOC: ANHLAB 09:37
PROVIDERS: PCP Registered Nurse; Visit Provider Internal Medicine Endocrinology, Diabetes & Metabolism
DX: R73.01 Impaired fasting glucose (principal); E04.1 Nontoxic single thyroid nodule
CPT/HCPCS: 36415; 80053; 80061; 83036; 83525; 84439; 84443; 84481; 86376

== ENCOUNTER 2021-12-23 13:05 | Outpatient (CLI) | payer OTHER, SELFPAY ==
--- NOTE | ~2021-12-23 | US_ITS ---
EXAMINATION: US FNA w image guidance DATE: 12/23/2021 13:54 INDICATION: Nontoxic single thyroid nodule. TECHNIQUE: The procedure and its benefits and risks were discussed with the patient. Risks specifically discusse d included bleeding. The patient verbalized understanding of the risks and agreed to proceed. The nec k was prepped and draped in the usual sterile manner. 1% lidocaine was used for local anesthesia. 5 passes were made with a 25G needle into the lesion under ultrasound guidance. There were no immedia te complications. FINDINGS: Grayscale ultrasound images demonstrate needles advanced into a 2.2 cm hypoechoic solid nodule in the thyroid isthmus for biopsy. IMPRESSION: 1. Ultrasound-guided fine needle aspiration of a nodule in the thyroid isthmus. Reviewed, dictated and finalized at location A. LESS FIELD TECHNICIAN IMPRESSION: 1. Ultrasound-guided fine needle aspiration of a nodule in the thyroid isthmus .
== END 2021-12-23 13:06 | disposition home or self-care (01) ==
LOC: ANHIMG 13:12
PROVIDERS: PCP Registered Nurse; Visit Provider Internal Medicine Endocrinology, Diabetes & Metabolism
DX: E04.1 Nontoxic single thyroid nodule (principal)
CPT/HCPCS: 10005; 88173; 88305

== ENCOUNTER 2022-02-24 16:07 | Emergency (ER) | payer OTHER, SELFPAY ==
--- NOTE | ~2022-02-24 | CT_ITS ---
EXAMINATION: CT abdomen pelvis w con DATE: 02/24/2022 17:39 INDICATION: abd pain TECHNIQUE: Computed tomography (CT) of the abdomen and pelvis was performed with 100 mL Omnipaque-350 intravenous contrast. Automated exposure control and iterative reconstruction technique were employe d. The dose-length product was 545.39 mGy-cm. COMPARISON: 10/31/2021. FINDINGS: Lower thorax: Unremarkable. Liver: Normal. Biliary/Gallbladder: Gallbladder is normal. No bile duct dilation. Spleen: Normal. Pancreas: No mass or duct dilation. Adrenals:No mass. Kidneys: No mass, stone, or hydronephrosis. GI tract: No small or large bowel dilation. Normal appendix. Mesentery/Peritoneum: No ascites, mass, or free air. Retroperitoneum: No mass. Pelvis: Pelvic organs are within normal limits. Bones/Soft Tissues: Soft tissues and body wall unremarkable. No acute osseous finding. Additional Findings: None. IMPRESSION: No acute abdominopelvic process. Reviewed, dictated and finalized at location K.
[2022-02-24 16:12] VITALS: BP 121/77; PULSE 119; RESP 16; TEMP 36.2; O2SAT 100
[2022-02-24 16:22] LABS: Basophils Percent Auto 0.3 % (0.2-1.2); Eosinophils Absolute Auto 0.1 K/mm3 (0-0.3); Eosinophils Percent Auto 1.2 % (0-4.4); Hemoglobin 13.1 g/dL (12.0-15.0); Immature Granulocyte Absolute 0.01 K/mm3 (0.00-0.031); Immature Granulocyte Percent A 0.1 % (0-0.5); Lymphocytes Absolute Auto 3.77 K/mm3 (0.9-3.2); Lymphocytes Percent Auto 40.2 % (18.3-44.2); Mean Corpuscular Hemoglobin 29.5 pg (26-34); Mean Corpuscular Volume 92.3 fl (80-100); Mean Platelet Volume 8.8 fl (7.4-10.4); Monocytes Absolute Auto 1.1 K/mm3 (0.1-0.6); Monocytes Percent Auto 11.5 % (2.6-8.5); Neutrophils Absolute Auto 4.4 K/mm3 (1.3-6.7); Neutrophils Percent Auto 46.7 % (45.5-73.1); Platelet Count Result 445 k/mm3 (150-375); Red Blood Count 4.44 M/mm3 (4.2-5.4); Red Cell Distribution Width 11.6 % (11.5-14.5); White Blood Count 9.4 K/mm3 (4.5-10.0)
[2022-02-24 16:39] LABS: Alanine Aminotransferase 21 U/L (4-35); Albumin Level 3.8 g/dL (3.5-5.1); Alkaline Phosphatase 67 U/L (38-126); Anion Gap 6 mmol/L (8-16); Aspartate Amino Transferase 32 U/L (14-36); Bilirubin,Total 0.3 mg/dL (0.2-1.3); Blood Urea Nitrogen 10 mg/dL (7-17); Calcium 8.8 mg/dL (8.4-10.2); Carbon Dioxide 29 mmol/L (22-30); Chloride 102 mmol/L (98-107); Estimated CRCL calculation 119 ml/min; Estimated Glomerular Filt Rate > 60; Glucose 116 mg/dL (65-110); Lipase 148 U/L (23-300); Potassium 4.4 mmol/L (3.4-5.0); Sodium 137 mmol/L (137-145)
--- NOTE | 2022-02-24 16:49 | ED.ABDPAIN ---
HPI - Abdominal Pain General Chief Complaint: Abdominal Pain Stated Complaint: abdominal pain Time Seen by Provider: 02/24/22 16:40 History of Present Illness HPI narrative: 22-year-old female presents emergency room with acute onset o upper abdominal pain for 6 days. Patient states that she was evaluated at outside emergency room 4 days ago for the same symptoms and states they did not do anything for me . Patient was diagnosed with viral gastroenteritis, and was given nausea medicine. Patient states that he nausea and vomiting and diarrhea have resolved, but the upper abdominal pain continues. Patient has a history of cholecystectomy. Related Data Home Medications Medication Instructions Recorded Confirmed bupropion HCl 300 mg PO DAILY 04/12/21 04/26/21 lamotrigine See Rx Instructions .ROUTE .COMPLEX 04/12/21 04/26/21 spironolactone 50 mg PO DAILY 04/12/21 04/26/21 Allergies Allergy/AdvReac Type Severity Reaction Status Date / Time No Known Allergies Allergy Verified 10/31/21 22:40 Review of Systems Review of Systems: CONSTITUTIONAL: Denies fever, chills, or sweats. EYES: Denies visual changes, redness, or discharge. ENT: Denies rhinorrhea, congestion, sore throat, or otalgia. CARDIOVASCULAR: Denies chest pain, palpitations, or edema. RESPIRATORY: Denies cough or dyspnea. GASTROINTESTINAL: Reports abdominal pain GENITOURINARY: Denies dysuria or hematuria. SKIN: Denies rash or itching. MUSCULOSKELETAL: Denies back pain, joint pain, or myalgia. NEUROLOGIC: Denies headache, numbness, dizziness, or weakness. PSYCHIATRIC: Denies anxiety or depression. 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 Surgical History Surgical History History of colonoscopy Hx laparoscopic cholecystectomy 04/13/21 Family History Family History Grandparent Diabetes mellitus Hypertension Grandparent Diabetes mellitus Hypertension Father Acute myocardial infarction Hypertension Grandparent Hypertension Grandparent Hypertension Social History Social History Smoking status: Never smoker Additional smoking assessment comments: Pt states that she smoked a herbal cigarette 2 days ago, does not routinely Alcohol intake: current Alcohol use details: Occasional Substance use: never Other substance usage details: does not even drink one alcoholic drink/week Gender identity (if verbalized by the patient): Female Spiritual care concerns: No Exam Narrative: GENERAL: Well-appearing, well-nourished, and in no acute distress. HEAD: Normocephalic, atraumatic. EYES: PERRLA and EOMI.D CHEST: Clear to auscultation. No respiratory distress. No wheezes rales or rhonchi HEART: Regular rate and rhythm. No murmur heard. Normal peripheral pulses. ABDOMEN: Soft, right upper quadrant, left upper quadrant tenderness, nondistended, normal active bowel sounds. EXTREMITIES: Normal range of motion. No edema. SKIN: Warm, dry, no rash. NEURO: No focal deficits. Alert and oriented x3. PSYCH: Normal mood and affect. Course Vital Signs Vital signs: Vital Signs Temperature 36.2 C L 02/24/22 16:12 Pulse Rate 119 H 02/24/22 16:12 Respiratory Rate 16 02/24/22 16:12 Blood Pressure 121/77 02/24/22 16:12 Pulse Oximetry 100 02/24/22 16:12 Temperature 36.2 C L 02/24/22 16:12 Pulse Rate 93 02/24/22 18:42 Respiratory Rate 18 02/24/22 18:42 Blood Pressure 116/71 02/24/22 18:42 Pulse Oximetry 100 02/24/22 18:42 MDM - Abdominal Pain MDM Narrative Medical decision making narrative: 22-year-old female presented emergency room with complaints of abdominal pain for 6 days. Patient states that she was seen at an out
[2022-02-24 16:56] LABS: Appearance Urine Clear (Clear); Bilirubin Urine Negative (Negative); Color Urine Yellow (Yellow); Glucose Urine UA Negative (Negative); Ketones Urine Negative (Negative); Leukocyte Esterase Ur Negative LEU/UL (Negative); Nitrate Urine Negative (Negative); Protein Urine Negative (Negative); Urobilinogen Urine 0.2 mg/dL (<2.0); pH Urine 8.5 (5.0-9.0)
[2022-02-24 16:57] LABS: Add Urine Microscopic? YES; Blood Urine Trace-Intact (Negative)
[2022-02-24 17:09] LABS: Bacteria Urine Trace /hpf; Squamous Epithelial Cell Urine Many /hpf (Few); WBC Urine 0-3 /hpf
[2022-02-24] MEDS: SODIUM CHLORIDE 0.9% IV 1,000 ML 999 ML IV CONT (17:12)
[2022-02-24] MEDS: KETOROLAC 30 MG/ML VIAL (*BKC) IV PUSH (17:13)
[2022-02-24] MEDS: DICYCLOMINE HCL INJ 20 MG/2 ML VIAL IM (17:14)
[2022-02-24 18:04] VITALS: BP 112/77; PULSE 93; RESP 18; O2SAT 100
[2022-02-24 18:42] VITALS: BP 116/71; PULSE 93; RESP 18; O2SAT 100
== END 2022-02-24 18:44 | disposition home or self-care (01) ==
PROVIDERS: Emergency Medicine; Emergency Provider Nurse Practitioner Family; PCP Registered Nurse
DX: R10.11 Right upper quadrant pain (principal); F90.9 Attention-deficit hyperactivity disorder, unspecified type
CPT/HCPCS: 36415; 74177; 80053; 81001; 81025; 83690; 85025; 96361; 96372; 96374; 99284; J0500; J1885; J7030; Q9967

== ENCOUNTER 2022-03-12 13:37 | Outpatient (CLI) | payer OTHER, SELFPAY ==
[2022-03-12 14:34] LABS: Alanine Aminotransferase 24 U/L (4-35); Albumin Level 4.2 g/dL (3.5-5.1); Alkaline Phosphatase 73 U/L (38-126); Aspartate Amino Transferase 33 U/L (14-36); Bilirubin Indirect 0.5 mg/dL (0-1.1); Bilirubin,Total 0.5 mg/dL (0.2-1.3)
== END 2022-03-12 13:38 | disposition home or self-care (01) ==
PROVIDERS: PCP Registered Nurse; Visit Provider Registered Nurse
DX: R10.13 Epigastric pain (principal)
CPT/HCPCS: 36415; 82040; 82247; 82248; 84075; 84450; 84460

== ENCOUNTER 2022-03-25 09:54 | Outpatient (CLI) | payer OTHER, SELFPAY ==
--- NOTE | ~2022-03-25 | US_ITS ---
EXAMINATION: US right upper quadrant DATE: 03/25/2022 10:31 INDICATION: Jaundice. TECHNIQUE: Multiple grayscale and Doppler ultrasound images of the abdomen were obtained. COMPARISON: CT abdomen and pelvis 02/24/2022 FINDINGS: The visualized portions of the head and body of the pancreas are normal. The liver is vinny l without focal lesion. There is normal flow in main portal vein. The gallbladder is absent. The comm on duct is normal and measures 5 mm. IMPRESSION: 1. Normal right upper quadrant ultrasound status post cholecystectomy. Reviewed, dictated and finalized at location B.
== END 2022-03-25 09:55 | disposition home or self-care (01) ==
PROVIDERS: PCP Registered Nurse; Visit Provider Internal Medicine Gastroenterology
DX: R10.13 Epigastric pain (principal); Z90.49 Acquired absence of other specified parts of digestive tract
CPT/HCPCS: 76705

== ENCOUNTER 2022-05-03 08:44 | Emergency (ER) | payer OTHER, SELFPAY ==
--- NOTE | ~2022-05-03 | XR_ITS ---
EXAMINATION: XR abdomen/kub 1V INDICATION: Left-sided abdominal pain TECHNIQUE: Supine view of the abdomen is obtained. COMPARISON: None FINDINGS: A moderate volume of colonic stool is present. Cholecystectomy clips are noted in the right upper quadrant. The bowel gas pattern is normal. There are no dilated loops of bowel. The visualized osseous structures are unremarkable. IMPRESSION: 1. Moderate volume of colonic stool. Reviewed, dictated and finalized at location A.
[2022-05-03 08:56] VITALS: BP 129/79; PULSE 92; RESP 16; TEMP 37.2; O2SAT 100
--- NOTE | 2022-05-03 09:46 | ED.FEMALEGU ---
HPI - Female Genitourinary General Chief complaint: Urogenital-Female Stated complaint: UTI Time Seen by Provider: 05/03/22 09:46 Source: patient Mode of arrival: ambulatory Limitations: no limitations History of Present Illness HPI Narrative: 22-year-old female presents with complaint of urinary frequency, left-sided low back pain, left lower abdominal pain for 2 to 3 days. No fever or chills. Is concerned that she has urinary tract infection. Also reports that her period is supposed to start and 2 to 3 days. Does not think that she is . Also reports mother recently had a kidney stone. She has never had a kidney stone herself. All systems reviewed and negative except as noted above. Related Data Home Medications Medication Instructions Recorded Confirmed bupropion HCl 300 mg 24 hr tablet, 300 mg PO DAILY 04/12/21 04/26/21 extended release lamotrigine 150 mg tablet See Rx Instructions .Route .COMPLEX 04/12/21 04/26/21 spironolactone 25 mg tablet 50 mg PO DAILY 04/12/21 04/26/21 Allergies Allergy/AdvReac Type Severity Reaction Status Date / Time No Known Allergies Allergy Verified 10/31/21 22:40 Review of Systems Review of Systems: CONSTITUTIONAL: Denies fever, chills, or sweats. EYES: Denies visual changes, redness, or discharge. ENT: Denies rhinorrhea, congestion, sore throat, or otalgia. CARDIOVASCULAR: Denies chest pain, palpitations, or edema. RESPIRATORY: Denies cough or dyspnea. GASTROINTESTINAL: Denies abdominal pain, nausea, vomiting, or diarrhea. GENITOURINARY: Reports urinary frequency, urgency, left low back pain, left lower abdominal pain. SKIN: Denies rash or itching. MUSCULOSKELETAL: Denies back pain, joint pain, or myalgia. NEUROLOGIC: Denies headache, numbness, or weakness. PSYCHIATRIC: Denies anxiety or depression. All other systems reviewed are negative, except as documented in HPI. 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 dba Surgical History Surgical History History of colonoscopy Hx laparoscopic cholecystectomy 04/13/21 Family History Family History Grandparent Diabetes mellitus Hypertension Grandparent Diabetes mellitus Hypertension Father Acute myocardial infarction Hypertension Grandparent Hypertension Grandparent Hypertension Social History Social History Smoking status: Never smoker Additional smoking assessment comments: Pt states that she smoked a herbal cigarette 2 days ago, does not routinely Alcohol intake: current Alcohol use details: Occasional Substance use: never Other substance usage details: does not even drink one alcoholic drink/week Gender identity (if verbalized by the patient): Female Spiritual care concerns: No Comments At time of signature, agree with nursing past medical, surgical, social and family history. There is no relevant family history pertinent to the presenting complaint. Exam Narrative: GENERAL: This is a well-nourished, well-developed patient, in no apparent distress. HEAD: normocephalic, atraumatic. EYES: PERRL. Sclera clear/white. Vision is grossly intact. EARS: External ears normal NOSE: External nose normal NECK: Neck supple, non-tender without lymphadenopathy, masses or thyromegaly. CARDIOVASCULAR: Regular rate and rhythm without murmurs, gallops, or rubs. RESPIRATORY: Clear to auscultation. Breath sounds equal bilaterally. No wheezes, rales, or rhonchi. GASTROINTESTINAL: Abdomen soft, non-tender, nondistended. Bowel sounds are active. No hepato-splenomegaly, or palpable masses. No guarding. SKIN: warm, Dry, intact with no suspicious lesions or rash, good texture and turgor. NEURO: awake, alert, and orient
== END 2022-05-03 10:46 | disposition home or self-care (01) ==
PROVIDERS: Emergency Provider Nurse Practitioner Family; PCP Registered Nurse
DX: K59.00 Constipation, unspecified (principal); R35.0 Frequency of micturition; N94.6 Dysmenorrhea, unspecified
CPT/HCPCS: 74018; 81003; 81025; 87086; 99213; G0463

== ENCOUNTER 2022-07-28 09:33 | Outpatient (CLI) | payer OTHER, SELFPAY ==
--- NOTE | ~2022-07-28 | US_ITS ---
US thyroid INDICATION: Massive the isthmus previously biopsied with benign histology. Interval enlargement on mo st recent examination. TECHNIQUE: Real-time sonographic images of the thyroid gland were obtained. COMPARISON: Comparison to multiple prior studies sequentially, with oldest reviewed study dated 12/2020. FINDINGS: The right thyroid lobe measures 5 x 1 x 1.5 cm. The left thyroid lobe measures 5.4 x 1 x 1 .6 cm. There is normal echotexture and echogenicity throughout the thyroid gland. Isthmic nodule akua ures 2.2 x 1.6 x 2.1 cm compared with 2.3 x 1.6 x 2.1 cm on prior examination. Normal vascular flow i s present. IMPRESSION: 1. Stable solid mass of the isthmus measuring 2.2 x 1.6 x 2.1 cm. This was previously proven benign by biopsy. Consider follow-up ultrasound in 12 months. Reviewed, dictated and finalized at location A. IMPRESSION: 1. Stable solid mass of the isthmus measuring 2.2 x 1.6 x 2.1 cm. This was pre viously proven benign by biopsy. Consider follow-up ultrasound in 12 months.
[2022-07-28 11:07] LABS: Alanine Aminotransferase 36 U/L (6-35); Albumin Level 4.1 g/dL (3.5-5.1); Alkaline Phosphatase 103 U/L (38-126); Anion Gap 9 mmol/L (8-16); Aspartate Amino Transferase 26 U/L (14-36); Bilirubin,Total 0.7 mg/dL (0.2-1.3); Blood Urea Nitrogen 10 mg/dL (7-17); Calcium 8.8 mg/dL (8.4-10.2); Carbon Dioxide 26 mmol/L (22-30); Chloride 102 mmol/L (98-107); Cholesterol 186 mg/dL (0-200); Estimated Glomerular Filt Rate > 60; Glucose 100 mg/dL (65-110); HDL Direct 42 mg/dL; Hemoglobin A1C 5.4 % (<5.7); Potassium 4.1 mmol/L (3.4-5.0); Sodium 137 mmol/L (137-145); Triglycerides 75 mg/dL (<150)
[2022-07-28 11:18] LABS: LDL Cholesterol Direct 107 mg/dL
[2022-07-28 12:01] LABS: Free T4 Free Thyroxine 1.15 ng/mL (0.78-2.19)
[2022-07-28 12:11] LABS: Folic Acid 14.1 ng/mL (2.76->20)
[2022-07-30 04:22] LABS: Thyroid Peroxidase Antibodies 84 IU/mL (<9)
[2022-07-30 12:49] LABS: Insulin Level Total 10.2 uIU/mL (<=19.6)
[2022-07-30 19:41] LABS: Triiodothyronine T3 Free 3.3 pg/mL (2.3-4.2)
== END 2022-07-28 09:34 | disposition home or self-care (01) ==
PROVIDERS: PCP Registered Nurse; Visit Provider Internal Medicine Endocrinology, Diabetes & Metabolism
DX: E04.1 Nontoxic single thyroid nodule (principal); E06.3 Autoimmune thyroiditis; R73.01 Impaired fasting glucose
CPT/HCPCS: 36415; 76536; 80053; 80061; 82542; 82607; 82746; 83036; 83525; 84439; 84443; 84481; 86376

== ENCOUNTER 2022-10-17 13:59 | Outpatient (CLI) | payer OTHER, SELFPAY ==
--- NOTE | ~2022-10-17 | US_ITS ---
EXAMINATION: US breast BI limited HISTORY: Pain of the lower-outer right breast and lower left breast. TECHNIQUE: Limited bilateral breast ultrasound performed. FINDINGS: No sonographic correlate is identified for the reported pain of the right breast. There is a 12 mm x 8 mm cyst of the left breast at 3:00 location 1 cm from the nipple. No suspicious mass is i dentified. Benign-appearing bilateral axillary lymph nodes are noted. IMPRESSION: No suspicious sonographic correlate is identified for the patient's reported bilateral breast pain. F urther evaluation at this time should be based on clinical assessment. Continued follow-up physical e xamination is recommended. BI-RADS Category 2: Benign finding(s). Reviewed, dictated and finalized at location A. LATE FITTER IMPRESSION: No suspicious sonographic correlate is identified for the patient's reported bi lateral breast pain. Further evaluation at this time should be based on clinica l assessment. Continued follow-up physical examination is recommended. BI-RADS Category 2: Benign finding(s).
== END 2022-10-17 14:00 | disposition home or self-care (01) ==
PROVIDERS: PCP Registered Nurse; Visit Provider Nurse Practitioner Obstetrics & Gynecology
DX: N64.4 Mastodynia (principal); N63.20 Unspecified lump in the left breast, unspecified quadrant
CPT/HCPCS: 76642

== ENCOUNTER 2022-12-02 12:21 | Outpatient (CLI) | payer OTHER, SELFPAY ==
[2022-12-02 13:20] LABS: Alanine Aminotransferase 60 U/L (6-35); Albumin Level 4.1 g/dL (3.5-5.1); Alkaline Phosphatase 128 U/L (38-126); Anion Gap 7 mmol/L (8-16); Aspartate Amino Transferase 47 U/L (14-36); Bilirubin,Total 0.7 mg/dL (0.2-1.3); Blood Urea Nitrogen 13 mg/dL (7-17); Calcium 8.8 mg/dL (8.4-10.2); Carbon Dioxide 28 mmol/L (22-30); Chloride 99 mmol/L (98-107); Estimated Glomerular Filt Rate > 60; Glucose 90 mg/dL (65-110); HDL Direct 48 mg/dL; Potassium 4.1 mmol/L (3.4-5.0); Sodium 134 mmol/L (137-145); Triglycerides 127 mg/dL (<150)
[2022-12-02 13:28] LABS: LDL Cholesterol Direct 108 mg/dL
[2022-12-02 13:37] LABS: Cholesterol 213 mg/dL (0-200)
[2022-12-02 14:14] LABS: Hemoglobin A1C 5.3 % (<5.7)
[2022-12-02 14:18] LABS: Free T4 Free Thyroxine 1.05 ng/mL (0.78-2.19)
[2022-12-02 14:24] LABS: Folic Acid 12.9 ng/mL (2.76->20)
[2022-12-05 13:34] LABS: DHEA-Sulfate 230 mcg/dL (18-391); Insulin Level Total 13.8 uIU/mL (<=19.6)
[2022-12-07 06:12] LABS: FSH 5.1 mIU/mL (***); LH 10.9 mIU/mL (***); Progesterone 0.6 ng/mL (***)
[2022-12-10 10:56] LABS: Testosterone Free 4.2 pg/mL (0.1-6.4); Testosterone Total 30 ng/dL (2-45)
== END 2022-12-02 12:22 | disposition home or self-care (01) ==
PROVIDERS: PCP Registered Nurse; Visit Provider Nurse Practitioner
DX: E06.3 Autoimmune thyroiditis (principal); R73.01 Impaired fasting glucose; E04.1 Nontoxic single thyroid nodule; N92.6 Irregular menstruation, unspecified
CPT/HCPCS: 36415; 80053; 80061; 82542; 82607; 82627; 82746; 83001; 83002; 83036; 83525; 84144; 84402; 84403; 84439; 84443

== ENCOUNTER 2023-02-12 07:47 | Outpatient (CLI) | payer OTHER, SELFPAY ==
[2023-02-12 09:03] LABS: Cortisol Random 0.85 ug/dL
[2023-03-02 08:52] LABS: Dexamethasone 670 ng/dL
== END 2023-02-12 07:48 | disposition home or self-care (01) ==
LOC: ANHLAB 07:51
PROVIDERS: PCP Registered Nurse; Visit Provider Internal Medicine Endocrinology, Diabetes & Metabolism
DX: R63.5 Abnormal weight gain (principal)
CPT/HCPCS: 36415; 80299; 82533

== ENCOUNTER 2023-06-30 09:07 | Outpatient (CLI) | payer OTHER, SELFPAY ==
[2023-06-30 09:50] LABS: Alanine Aminotransferase 25 U/L (6-35); Alkaline Phosphatase 94 U/L (38-126); Anion Gap 4 mmol/L (8-16); Aspartate Amino Transferase 26 U/L (14-36); Bilirubin,Total 0.5 mg/dL (0.2-1.3); Blood Urea Nitrogen 11 mg/dL (7-17); Calcium 9.1 mg/dL (8.4-10.2); Carbon Dioxide 29 mmol/L (22-30); Chloride 101 mmol/L (98-107); Estimated Glomerular Filt Rate > 60; Glucose 107 mg/dL (65-110); Sodium 134 mmol/L (137-145)
[2023-06-30 09:52] LABS: Hemoglobin A1C 5.6 % (<5.7)
[2023-06-30 10:05] LABS: Free T4 Free Thyroxine 1.21 ng/mL (0.78-2.19)
[2023-07-03 05:14] LABS: DHEA-Sulfate 181 mcg/dL (18-391); Thyroid Peroxidase Antibodies 16 IU/mL (<9)
[2023-07-03 05:28] LABS: Triiodothyronine T3 Free 3.5 pg/mL (2.3-4.2)
[2023-07-05 17:22] LABS: Testosterone Free 3.9 pg/mL (0.1-6.4); Testosterone Total 21 ng/dL (2-45)
[2023-07-07 12:18] LABS: Insulin Level Total 14.7 uIU/mL (<=19.6)
== END 2023-06-30 09:08 | disposition home or self-care (01) ==
LOC: ANHLAB 09:09
PROVIDERS: PCP Registered Nurse; Visit Provider Internal Medicine Endocrinology, Diabetes & Metabolism
DX: E28.2 Polycystic ovarian syndrome (principal); E66.9 Obesity, unspecified; E06.3 Autoimmune thyroiditis
CPT/HCPCS: 36415; 80053; 82627; 83036; 83525; 84402; 84403; 84439; 84443; 84481; 86376

== ENCOUNTER 2023-07-04 12:28 | Outpatient (CLI) | payer OTHER, SELFPAY ==
[2023-07-04 13:13] LABS: Immunoglobulin A 183 mg/dL (70-400); Immunoglobulin G 1301 mg/dL (700-1600); Rheumatoid Factor < 12.0 IU/ML (<12)
[2023-07-08 12:32] LABS: Cyclic Citrullinated Peptide <16 Units (<20)
== END 2023-07-04 12:29 | disposition home or self-care (01) ==
PROVIDERS: PCP Registered Nurse; Visit Provider Internal Medicine Endocrinology, Diabetes & Metabolism
DX: M19.90 Unspecified osteoarthritis, unspecified site (principal)
CPT/HCPCS: 36415; 82784; 86038; 86200; 86430

== ENCOUNTER 2024-03-11 07:48 | Outpatient (CLI) | payer BC, SELFPAY ==
[2024-03-11 08:13] LABS: Basophils Percent Auto 0.4 % (0.2-1.2); Eosinophils Absolute Auto 0.1 K/mm3 (0-0.3); Eosinophils Percent Auto 1.3 % (0-4.4); Hematocrit 38.8 % (37.0-47.0); Hemoglobin 11.9 g/dL (12.0-15.0); Immature Granulocyte Absolute 0.02 K/mm3 (0.00-0.031); Immature Granulocyte Percent A 0.3 % (0-0.5); Lymphocytes Absolute Auto 3.56 K/mm3 (0.9-3.2); Lymphocytes Percent Auto 45.4 % (18.3-44.2); Mean Corpuscular HGB Conc 30.7 g/dl (32-36); Mean Corpuscular Hemoglobin 25.3 pg (26-34); Mean Corpuscular Volume 82.4 fl (80-100); Mean Platelet Volume 8.9 fl (7.4-10.4); Monocytes Absolute Auto 0.7 K/mm3 (0.1-0.6); Monocytes Percent Auto 9.2 % (2.6-8.5); Neutrophils Absolute Auto 3.4 K/mm3 (1.3-6.7); Neutrophils Percent Auto 43.4 % (45.5-73.1); Platelet Count Result 493 k/mm3 (150-375); Red Blood Count 4.71 M/mm3 (4.2-5.4); Red Cell Distribution Width 16.7 % (11.5-14.5); White Blood Count 7.9 K/mm3 (4.5-10.0)
[2024-03-11 08:24] LABS: Hemoglobin A1C 5.6 % (<5.7)
[2024-03-11 08:29] LABS: Alanine Aminotransferase 28 U/L (6-35); Albumin Level 4.4 g/dL (3.5-5.1); Alkaline Phosphatase 121 U/L (38-126); Anion Gap 11 mmol/L (4-12); Aspartate Amino Transferase 23 U/L (14-36); Bilirubin,Total 0.8 mg/dL (0.2-1.3); Blood Urea Nitrogen 10 mg/dL (7-17); Calcium 9.5 mg/dL (8.4-10.2); Carbon Dioxide 25 mmol/L (22-30); Chloride 105 mmol/L (98-107); Cholesterol 184 mg/dL (0-200); Estimated Glomerular Filt Rate > 60; Glucose 113 mg/dL (65-110); HDL Direct 36 mg/dL; Potassium 4.1 mmol/L (3.4-5.0); Sodium 141 mmol/L (137-145); Triglycerides 107 mg/dL (<150)
[2024-03-11 08:40] LABS: LDL Cholesterol Direct 112 mg/dL
== END 2024-03-11 07:49 | disposition home or self-care (01) ==
LOC: ANHLAB 07:51
PROVIDERS: PCP Nurse Practitioner Family; Visit Provider Nurse Practitioner Family
DX: Z13.228 Encounter for screening for other metabolic disorders (principal); Z13.0 Encounter for screening for diseases of the blood and blood-forming organs and certain disorders involving the immune mechanism; Z13.220 Encounter for screening for lipoid disorders; Z13.29 Encounter for screening for other suspected endocrine disorder; Z13.1 Encounter for screening for diabetes mellitus; Z68.41 Body mass index [BMI] 40.0-44.9, adult
CPT/HCPCS: 36415; 80053; 80061; 83036; 84443; 85025

== ENCOUNTER 2024-03-18 14:24 | Outpatient (CLI) | payer BC, SELFPAY ==
[2024-03-18 14:58] LABS: Hematocrit 37.4 % (37.0-47.0); Hemoglobin 11.6 g/dL (12.0-15.0); Mean Corpuscular Hemoglobin 25.3 pg (26-34); Mean Corpuscular Volume 81.5 fl (80-100); Mean Platelet Volume 8.9 fl (7.4-10.4); Platelet Count Result 486 k/mm3 (150-375); Red Blood Count 4.59 M/mm3 (4.2-5.4); Red Cell Distribution Width 16.5 % (11.5-14.5); White Blood Count 12.3 K/mm3 (4.5-10.0)
[2024-03-18 16:38] LABS: Iron 19 ug/dL (37-170)
[2024-03-18 16:48] LABS: Percent Iron Saturation 5 % (20-50)
[2024-03-18 17:15] LABS: Ferritin 7.62 ng/mL (6.24-137)
== END 2024-03-18 14:25 | disposition home or self-care (01) ==
LOC: ANHLAB 14:27
PROVIDERS: PCP Nurse Practitioner Family; Visit Provider Nurse Practitioner Family
DX: D64.9 Anemia, unspecified (principal)
CPT/HCPCS: 36415; 82728; 83540; 83550; 85027

== ENCOUNTER 2024-03-18 14:52 | Emergency (ER) | payer BC, SELFPAY ==
[2024-03-18] VITALS (7 sets, daily range): BP systolic 114–145; BP diastolic 81–101; PULSE 94–134; RESP 14–20; TEMP 36.6; O2SAT 99–100
--- NOTE | ~2024-03-18 | XR_ITS ---
EXAMINATION: XR chest 2V DATE: 03/18/2024 15:19 INDICATION: Chest pain. Shortness of breath. TECHNIQUE: Frontal and lateral views of the chest were obtained. COMPARISON: None. FINDINGS: There is no pneumonia, pleural effusion, or pneumothorax. The heart size is normal. There a re surgical clips in the abdomen. IMPRESSION: 1. No acute cardiopulmonary disease. Reviewed, dictated and finalized at location A.
--- NOTE | ~2024-03-18 | CT_ITS ---
EXAMINATION: CTA chest PE protocol DATE: 03/18/2024 20:09 INDICATION: Tachycardia. Near syncope. Left-sided chest pain and shortness of breath. TECHNIQUE: Computed tomography (CT) pulmonary angiogram of the chest was performed with 100 mL Omnipa que-350 intravenous contrast. Additional 3D reconstructions utilizing coronal maximum intensity proje ction (MIP) were performed. Automated exposure control and iterative reconstruction technique were em ployed. The dose-length product was 424.26 mGy-cm. COMPARISON: None FINDINGS: No pulmonary embolism. Mild dependent atelectasis in bilateral lower lobes. Calcified right lower lob e nodule consistent with old granulomatous disease. No pneumonia, pulmonary edema, pleural effusion o r pneumothorax. Heart size is normal. No pericardial effusion. Thoracic aorta is normal in caliber wi th no dissection. 2.5 cm thyroid nodule at the isthmus with prior benign biopsy on 12/23/2021. No path ologically enlarged thoracic lymphadenopathy. Cholecystectomy clips the gallbladder fossa. Mild mid t o upper thoracic dextrocurvature. IMPRESSION: 1. No pulmonary embolism or other acute cardiopulmonary disease. Reviewed, dictated and finalized at location A.
--- NOTE | 2024-03-18 14:53 | ECG_ITS ---
SEE SCANNED COPY FOR CONFIRMED REPORT MTDD
--- NOTE | 2024-03-18 14:55 | ED.CHESTPAIN ---
HPI - Chest Pain General Chief Complaint: Chest Pain <GIA Connell Last Filed: 03/18/24 15:01> Stated Complaint: chest pain <GIA Connell Last Filed: 03/18/24 15:01> Time Seen by Provider: 03/18/24 14:55 <GIA Connell Last Filed: 03/18/24 15:01> Focused HPI: Patient is a 24 y/o female, with PMH of ADHD/depression, who presents to the ED with c/o CP/SOB. Patient reports having intermittent midsternal and left sided CP since last night. Pain seems to be worse with walking. Radiates through to her back. She also reports SOB for the past few days, worse with exertion, as well as lightheadedness, tingling in her bilateral arms. Denies lower extremity pain or swelling, cough, cold sx's, fevers. Reports FHx of heart disease in her father. GENERAL: Well-appearing, well-nourished, and in no acute distress. HEAD: Normocephalic, atraumatic. CHEST: Clear to auscultation. ?No respiratory distress. HEART: Tachycardic with regular rhythm.? MSK: No lower extremity edema. No calf tenderness. TTP over midsternal anterior chest wall. NEURO: ?Alert and oriented x3. Patient screened in triage and initial orders placed.? ?Additional care and disposition to be based upon?diagnostic testing and treatment. <GIA Connell Last Filed: 03/18/24 15:01> Source: patient <GIA Connell Last Filed: 03/18/24 15:01> Mode of arrival: ambulatory <GIA Connell Last Filed: 03/18/24 15:01> Limitations: no limitations <GIA Connell Last Filed: 03/18/24 15:01> Related Data Home Medications: Home Medications Medication Instructions Recorded Confirmed magnesium citrate 100 mg capsule 100 mg PO DAILY 12/11/23 12/25/23 <GIA Connell Last Filed: 03/18/24 15:01> Allergies/Adverse Reactions: Allergies Allergy/AdvReac Type Severity Reaction Status Date / Time No Known Allergies Allergy Verified 03/18/24 18:06 <Mabel Shaver PA-C - Last Filed: 03/18/24 15:01> [facility] Past Medical History Medical History: Medical History ADHD Colitis Thyroid nodule 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, 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 <Mabel Shaver PA-C - Last Filed: 03/18/24 15:01> Surgical History Surgical History: Surgical History History of colonoscopy Hx laparoscopic cholecystectomy 04/13/21 <Mabel Shaver PA-C - Last Filed: 03/18/24 15:01> Family History Family History: Family History Grandparent Diabetes mellitus Hypertension Grandparent Diabetes mellitus Hypertension Father Acute myocardial infarction Hypertension Grandparent Hypertension Grandparent Hypertension Mother Depression <Mabel Shaver PA-C - Last Filed: 03/18/24 15:01> Social History Social History: Social History Smoking status: Never smoker Additional smoking assessment comments: Pt states that she smoked a herbal cigarette 2 days ago, does not routinely Alcohol intake: current Alcohol use details: Occasional Substance use: never Other substance usage details: does not even drink one alcoholic drink/week Living arrangements: with family Gender identity (if verbalized by the patient): Female Spiritual care concerns: No <Mabel Shaver PA-C - Last Filed: 03/18/24 15:01> Course Course Emergency Course: Vadim BLOOM: I agree with the HPI and exam as documented above. Please see my separate note for further documentation, MDM and plan. <Sree Fierro MD - Last Filed: 03/18/24 19:46> Vital Signs Vital signs: Vital Signs Temperature 97.8 F 03/18/24 14:56 Pulse Rate 134 H 03/18/24 14:56 Respiratory Rate 16
--- NOTE | 2024-03-18 15:18 | PC.NURSE ---
Pt to Xray
[2024-03-18 15:21] LABS: Basophils Percent Auto 0.3 % (0.2-1.2); Eosinophils Percent Auto 0.3 % (0-4.4); Hematocrit 37.4 % (37.0-47.0); Hemoglobin 11.7 g/dL (12.0-15.0); Immature Granulocyte Absolute 0.04 K/mm3 (0.00-0.031); Immature Granulocyte Percent A 0.3 % (0-0.5); Lymphocytes Absolute Auto 3.41 K/mm3 (0.9-3.2); Lymphocytes Percent Auto 28.8 % (18.3-44.2); Mean Corpuscular HGB Conc 31.3 g/dl (32-36); Mean Corpuscular Hemoglobin 25.4 pg (26-34); Mean Corpuscular Volume 81.1 fl (80-100); Mean Platelet Volume 8.8 fl (7.4-10.4); Monocytes Absolute Auto 0.9 K/mm3 (0.1-0.6); Monocytes Percent Auto 7.6 % (2.6-8.5); Neutrophils Absolute Auto 7.4 K/mm3 (1.3-6.7); Neutrophils Percent Auto 62.7 % (45.5-73.1); Platelet Count Result 485 k/mm3 (150-375); Red Blood Count 4.61 M/mm3 (4.2-5.4); Red Cell Distribution Width 16.4 % (11.5-14.5); White Blood Count 11.8 K/mm3 (4.5-10.0)
[2024-03-18 15:32] LABS: Alanine Aminotransferase 26 U/L (6-35); Albumin Level 4.5 g/dL (3.5-5.1); Alkaline Phosphatase 131 U/L (38-126); Anion Gap 10 mmol/L (4-12); Aspartate Amino Transferase 26 U/L (14-36); Bilirubin,Total 0.7 mg/dL (0.2-1.3); Blood Urea Nitrogen 8 mg/dL (7-17); Calcium 9.5 mg/dL (8.4-10.2); Carbon Dioxide 23 mmol/L (22-30); Chloride 103 mmol/L (98-107); Estimated CRCL calculation 104 ml/min; Estimated Glomerular Filt Rate > 60; Glucose 100 mg/dL (65-110); Lipase 71 U/L (23-300); Potassium 3.7 mmol/L (3.4-5.0); Sodium 136 mmol/L (137-145)
[2024-03-18 15:34] LABS: Prothrombin Time 13.6 Seconds (11.1-14.7)
[2024-03-18 15:35] LABS: Partial Thromboplastin Time 31.8 Seconds (22.3-36.8)
[2024-03-18 15:43] LABS: Troponin I < 0.012 ng/mL (0.000-0.034)
--- NOTE | 2024-03-18 15:43 | ECG_ITS ---
SEE SCANNED COPY FOR CONFIRMED REPORT MTDD
[2024-03-18] MEDS: ACETAMINOPHEN 500 MG TABLET 1000 MG PO (15:45)
[2024-03-18] MEDS: ASPIRIN 81 MG CHEWABLE TABLET 324 MG PO (15:45)
--- NOTE | 2024-03-18 15:47 | PC.NURSE ---
Pt to Triage desk, states she is having increase in chest pain, feels like heart is racing and pt having lightheadedness. EDP notified, VO for PO medications given. EKG repeated and VS taken at this time.
[2024-03-18 16:47] LABS: D Dimer 0.31 ug/mL (<0.48)
[2024-03-18 17:41] LABS: Troponin I < 0.012 ng/mL (0.000-0.034)
--- NOTE | 2024-03-18 18:30 | ED.CHESTPAIN ---
HPI - Chest Pain General Chief Complaint: Chest Pain <Sree Fierro MD - Last Filed: 03/18/24 19:29> Stated Complaint: chest pain <Sree Fierro MD - Last Filed: 03/18/24 19:29> Time Seen by Provider: 03/18/24 14:55 <Sree Fierro MD - Last Filed: 03/18/24 19:29> Source: patient <Sree Fierro MD - Last Filed: 03/18/24 19:29> Mode of arrival: ambulatory <Sree Fierro MD - Last Filed: 03/18/24 19:29> Limitations: no limitations <Sree Fierro MD - Last Filed: 03/18/24 19:29> History of Present Illness HPI narrative: This is a 24-year-old female, who denies significant past medical history, who presents to the emergency department complaining of intermittent left-sided chest pain for the past day. The patient describes pain as sharp, radiating to the back, exacerbated by physical exertion. This is accompanied by lightheadedness and near-syncope with position change and exertion. She denies fevers, chills, vomiting, diarrhea, bleeding, nausea or vomiting. She states her last menstrual period was 2 weeks ago. <Sree Fierro MD - Last Filed: 03/18/24 19:29> Related Data Home Medications: Home Medications Medication Instructions Recorded Confirmed magnesium citrate 100 mg capsule 100 mg PO DAILY 12/11/23 12/25/23 <Sree Fierro MD - Last Filed: 03/18/24 19:29> Allergies/Adverse Reactions: Allergies Allergy/AdvReac Type Severity Reaction Status Date / Time No Known Allergies Allergy Verified 03/18/24 18:06 <Sree Fierro MD - Last Filed: 03/18/24 19:29> Review of Systems Review of Systems: All systems reviewed & are unremarkable except as noted in HPI and below (HPI) <Sree Fierro MD - Last Filed: 03/18/24 19:29> PMFSH Past Medical History Medical History: Medical History ADHD Colitis Thyroid nodule 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, 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 <Sree Fierro MD - Last Filed: 03/18/24 19:29> Surgical History Surgical History: Surgical History History of colonoscopy Hx laparoscopic cholecystectomy 04/13/21 <Sree Fierro MD - Last Filed: 03/18/24 19:29> Family History Family History: Family History Grandparent Diabetes mellitus Hypertension Grandparent Diabetes mellitus Hypertension Father Acute myocardial infarction Hypertension Grandparent Hypertension Grandparent Hypertension Mother Depression <Sree Fierro MD - Last Filed: 03/18/24 19:29> Social History Social History: Social History Smoking status: Never smoker Additional smoking assessment comments: Pt states that she smoked a herbal cigarette 2 days ago, does not routinely Alcohol intake: current Alcohol use details: Occasional Substance use: never Other substance usage details: does not even drink one alcoholic drink/week Living arrangements: with family Gender identity (if verbalized by the patient): Female Spiritual care concerns: No <Sree Fierro MD - Last Filed: 03/18/24 19:29> Exam Narrative: GENERAL: Well-developed, well-nourished, and in no acute distress. HEAD: Normocephalic, atraumatic. EYES: PERRLA and EOMI. CHEST: Clear to auscultation. No respiratory distress. No wheezes rales or rhonchi HEART: Tachycardic with regular rhythm. No murmur heard. Normal peripheral pulses. ABDOMEN: Soft, nontender, nondistended, normal active bowel sounds. EXTREMITIES: Normal range of motion. No edema. SKIN: Warm, dry, no rash. NEURO: Alert and oriented x3. No focal deficit. Moving all 4 limbs spontaneously PSYCH: Normal mood and affect. <Sree Fierro MD - Last Filed: 03/18/24 19:29> Course Course Emergency Course:
[2024-03-18] MEDS: LACTATED RINGERS 2,000 ML 999 ML IV CONT (18:53)
== END 2024-03-18 21:21 | disposition home or self-care (01) ==
PROVIDERS: Emergency Medicine; Emergency Provider Emergency Medicine; PCP Nurse Practitioner Family
DX: R07.89 Other chest pain (principal); R55 Syncope and collapse; Z90.49 Acquired absence of other specified parts of digestive tract; R00.0 Tachycardia, unspecified; R94.31 Abnormal electrocardiogram [ECG] [EKG]
CPT/HCPCS: 36415; 71046; 71275; 80053; 81025; 82728; 83540; 83550; 83690; 84484; 85025; 85027; 85380; 85610; 85730; 93005; 96360; 96361; 99284; A9270; J7120; Q9967

== ENCOUNTER 2024-08-06 09:38 | Outpatient (CLI) | payer BC, SELFPAY ==
--- NOTE | ~2024-08-06 | US_ITS ---
US thyroid INDICATION: Thyroid nodule TECHNIQUE: Real-time sonographic images of the thyroid gland were obtained. COMPARISON: Ultrasound dated 07/28/2022 FINDINGS: The right thyroid lobe measures 5.3 x 1.5 x 1.4 cm. The left thyroid lobe measures 5.8 x 1 .6 x 1.6 cm. There is normal echotexture and echogenicity throughout the thyroid gland. There is a so lid oval slightly hypoechoic mass of the isthmus measuring 3 x 2.3 x 1.6 cm compared with 2.2 x 2.1 x 1.6 cm on prior examination. Normal vascular flow is present. IMPRESSION: 1. Enlarging isthmus nodule measuring up to 3 cm on current examination. Consider repeat biopsy. Reviewed, dictated and finalized at location B. IMPRESSION: 1. Enlarging isthmus nodule measuring up to 3 cm on current examination. Consi ezequiel repeat biopsy.
[2024-08-06 10:50] LABS: Vitamin D 25 Hydroxy 22.8 ng/mL
== END 2024-08-06 09:39 | disposition home or self-care (01) ==
PROVIDERS: PCP Nurse Practitioner Family; Visit Provider Internal Medicine Endocrinology, Diabetes & Metabolism
DX: E28.2 Polycystic ovarian syndrome (principal); Z68.41 Body mass index [BMI] 40.0-44.9, adult; Z83.3 Family history of diabetes mellitus; R19.7 Diarrhea, unspecified; R76.8 Other specified abnormal immunological findings in serum; E55.9 Vitamin D deficiency, unspecified; E04.1 Nontoxic single thyroid nodule
CPT/HCPCS: 36415; 76536; 82306; 82784; 83036; 83498; 86364

== ENCOUNTER 2024-09-15 12:33 | Outpatient (CLI) | payer OTHER, SELFPAY ==
--- NOTE | ~2024-09-15 | US_ITS ---
EXAMINATION: US FNA w image guidance DATE: 09/15/2024 13:26 INDICATION: Thyroid nodule. TECHNIQUE: The procedure and its benefits and risks were discussed with the patient. Risks specifically discusse d included bleeding. The patient verbalized understanding of the risks and agreed to proceed. The nec k was prepped and draped in the usual sterile manner. 1% lidocaine was used for local anesthesia. 6 passes were made with a 25G needle into the lesion under ultrasound guidance. There were no immedia te complications. FINDINGS: Grayscale ultrasound images demonstrate needles advanced into a 3.0 cm nodule in the thyroid isthmus for biopsy. IMPRESSION: 1. Ultrasound-guided fine needle aspiration of a thyroid nodule. Reviewed, dictated and finalized at location A. R HAND
== END 2024-09-15 12:34 | disposition home or self-care (01) ==
PROVIDERS: PCP Nurse Practitioner Family; Visit Provider Internal Medicine Endocrinology, Diabetes & Metabolism
DX: E04.1 Nontoxic single thyroid nodule (principal)
CPT/HCPCS: 10005; 88172; 88173; 88305

== ENCOUNTER 2024-12-29 09:14 | Outpatient (CLI) | payer OTHER, SELFPAY ==
--- OUTSIDE RECORDS SUMMARY | 2024-12-29 09:25 | XMS_ITS | Referral Summary ---
Author Organization [facility] Address [address] [place] [address] Care Team Providers Care Script Editor Name Role Phone Oc Quan NP Primary Care Provider [phone] Allergies No known active allergies Medications ondansetron (ZOFRAN) 4 mg tablet Take 1 tablet (4 mg total) by mouth every 6 (six) hours 12 tablet 02/21/2022 Active traMADoL (ULTRAM) 50 mg tablet Take 1 tablet (50 mg total) by mouth every 6 (six) hours 12 tablet 05/29/2023 Active Social History Tobacco Use Types Packs/Day Years Used Date Smoking Tobacco: Never Smokeless Tobacco: Never Alcohol Use Standard Drinks/Week Comments Never 0 (1 standard drink = 0.6 oz pur e alcohol) Personal Safety Answer Date Recorded Getting School Help Needed Not on file 07/30 Comments No Sex and Gender Information Value Date Recorded Sex Assigned at Not on file Legal Sex Female 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 Gender Identity Not on file Sexual Orientation Not on file Last Filed Vital Signs Vital Sign Reading Time Taken Comments Blood Pressure 112/78 05/29/2023 4:27 PM CDT Pulse 83 05/29/2023 4:27 PM CDT Temperature 36.8 C (98.2 F) 05/29/2023 1:37 PM CDT Respiratory Rate 18 05/29/2023 4:27 PM CDT Oxygen Saturation 98% 05/29/2023 4:27 PM CDT Inhaled Oxygen Concentration - - Weight 95.3 kg (210 lb) 05/29/2023 1:37 PM CDT Height 157.5 cm (5' 2 ) 05/29/2023 1:37 PM CDT Body Mass Index 38.41 05/29/2023 1:37 PM CDT Plan of Treatment Not on file Insurance Care Teams Script Editor Relationship Specialty Start Date End Date Oc Quan NP PCP - General 02/08/19
--- OUTSIDE RECORDS SUMMARY | 2024-12-29 09:25 | XMS_ITS | Clinical Summary ---
Author Organization [facility] [address] [place] [address] Care Team Providers Care Roofer Vinyl Coating Name Role Phone Unavailable Primary Care Provider Unavailabl e Allergies No known active allergies Medications methylphenidate ER 36 mg tablet,extended release 24 hr 10/30/2024 Activ e Active Problems No known active problems Encounters Date Type Department Care Team Description 12/27/2024 External Device Data [facility] Provider, Abstract 12/06/2024 External Device Data [facility] Provider, Abstract 11/30/2024 External Device Data [facility] Provider, Abstract 11/30/2024 External Device Data [facility] Provider, Abstract 11/29/2024 External Device Data [facility] Provider, Abstract 11/25/2024 10:15 AM REGISTRATION CLERK Ancillary Procedure [address] [address] Krista Wilcox MD Cough, unspecified type 11/25/2024 9:35 AM REGISTRATION CLERK Office Visit [address] [id number] Krista Wilcox MD Viral URI with cough (Primary Dx); Cough, unspecified type; Chest tightness; Chest pressure from Last 3 Months Social History Tobacco Use Types Packs/Day Years Used Date Smoking Tobacco: Never Smokeless Tobacco: Never Tobacco Cessation:Counseling Given: Not Answered Comments No Sex and Gender Information Value Date Recorded Sex Assigned at Not on file Legal Sex Female 9:30 AM REGISTRATION CLERK Gender Identity Not on file Sexual Orientation Not on file Last Filed Vital Signs Vital Sign Reading Time Taken Comments Blood Pressure 127/90 11/25/2024 9:38 AM REGISTRATION CLERK Pulse 120 11/25/2024 9:38 AM REGISTRATION CLERK Temperature 37.1 C (98.7 F) 11/25/2024 9:38 AM REGISTRATION CLERK Respiratory Rate 18 11/25/2024 9:38 AM REGISTRATION CLERK Oxygen Saturation 98% 11/25/2024 9:38 AM REGISTRATION CLERK Inhaled Oxygen Concentration - - Weight 106.6 kg (235 lb) 11/25/2024 9:38 AM REGISTRATION CLERK Height 157.5 cm (5' 2 ) 11/25/2024 9:38 AM REGISTRATION CLERK Body Mass Index 42.98 11/25/2024 9:38 AM REGISTRATION CLERK Plan of Treatment Health Maintenance Due Date Last Done Comments HPV VACCINES (1 - 3-dose series) 2014 DTAP/TDAP/TD VACCINES (1 - Tdap) 2018 HEPATITIS B VACCINES (1 of 3 - 19+ 3-dose series) 05/2018 INFLUENZA VACCINE (#1) 2024 CERVICAL CANCER SCREENING 10/09/2025 10/09/2022 Procedures Procedure Name Priority Date/Time Associated Diagnosis Comments XR CHEST PA AND LATERAL 2 VW Stat 11/25/2024 10:29 AM REGISTRATION CLERK Cough, unspecified type POC COVID-19 ANTIGEN Routine 11/25/2024 9:48 AM REGISTRATION CLERK Cough, unspecified type Chest tightness Chest pressure from Last 3 Months Results * XR CHEST PA AND LATERAL 2 VW (11/25/2024 10:29 AM REGISTRATION CLERK) Anatomical Region Laterality Modality Chest Computed Radiogr aphy 11/25/2024 10:3 0 AM REGISTRATION CLERK Impressions 11/25/2024 10:53 AM REGISTRATION CLERK IMPRESSION: 1. No acute radiographic abnormality. DICTATION LOCATION: Location 4 Narrative 11/25/2024 10:53 AM REGISTRATION CLERK EXAMINATION: XR CHEST PA AND LATERAL 2 VW DATE: 11/25/2024 10:29 AM HISTORY: See Diagnosis. Cough, unspecified type COMPARISON: None. FINDINGS: No airspace consolidation, pleural effusion, or pneumothorax. Normal heart size. Procedure Note Troy Cheatham MD - 11/25/2024 EXAMINATION: XR CHEST PA AND LATERAL 2 VW DATE: 11/25/2024 10:29 AM HISTORY: See Diagnosis. Cough, unspecified type COMPARISON: None. FINDINGS: No airspace consolidation, pleural effusion, or pneumothorax. Normal heart size. IMPRESSION: 1. No acute radiographic abnormality. DICTATION LOCATION: Location 4 Krista Wilcox MD DIAGNOSTIC IMAGING ORDERABLE S Final Result * (ABNORMAL) POC COVID-19 ANTIGEN (11/25/2024 9:48 AM REGISTRATION CLERK) COVID-19 ANTIGEN POC Presumptively Negative(A) Presumptively Negative [facility] INTERNAL KIT QC POC Pass Pass [facility] KIT LOT NUMBER POC [id number] [facility] KIT EXP DATE POC 12/01/2025 [facility] READ METHOD POC Visual [facility] Upper Respiratory 11/25/2024 9:48 AM REGISTRATION CLERK Krista Wilcox MD POINT OF CARE TESTING Final Result [facility] [employer] [facility] CLIA# [id number] [place] [address] from Last 3 Months Insurance [email or web address] [facility] [id number]
--- OUTSIDE RECORDS SUMMARY | 2024-12-29 09:26 | XMS_ITS | Referral Summary ---
Author Organization [facility] Address [address] [place] [address] Care Team Providers Care Network Developer Name Role Phone Oc Quan MENTAL HEALTH ORDERLY-MOLD HOLDER Primary Care Pro vider Cony Hebert MENTAL HEALTH ORDERLY-MOLD HOLDER Unavailable Source Comments [facility],non-owned Affiliates and Associated Physician Practices is amultiple site organization consisting of ambulatory clinics and hospital sitesin [place], [place], [place] and [place]. This disclosure is being madepursuant to the Care Everywhere program and may not contain all information available regarding this patient. Last updated 18.[facility] Allergies No known active allergies Medications * Be aware that medications may not be up to date on this document. Alwaysverify current medications with the patient. Medication Sig Dispensed Refills Start Date End Date Status mirtazapine (REMERON) 15 MG tablet Take 15 mg by mouth at bedtime Active medroxyPROGESTERon e (Depo-Provera) 150 MG/ML vial Inject 150 mg into muscle Every 90 days Active buPROPion XL 24hr (WELLBUTRIN-XL) 300 MG tablet Take 300 mg by mouth every morning Active doxycycline monohydrate 100 MG tabletIndications: Acne Vulgaris Take 1 tablet by mouth 2 times daily Reasons: Common Acne 60 tablet 2 06/16/2019 Active Additional Information Patient not taking.Reported on 11/13/2022 erythromycin (ERYDERM) 2 % solution Apply to face area daily. 30 days supply. 60 mL 2 06/17/2019 Active Additional Information Patient not taking.Reported on 11/13/2022 adapalene (DIFFERIN) 0.1 % gel Pea sized amount to entire face at night.. 30 days supply. 45 g 2 06/17/2019 Active Additional Information Patient not taking.Reported on 11/13/2022 dulaglutide (Trulicity) 0.75 MG/0.5ML injection Trulicity 0.75 mg/0.5 mL subcutaneous pen injector INJECT 0.75MG SUBCUTANEOUSLY EVERY WEEK AT DINNER FOR DIABETES Active famotidine (Pepcid) 40 MG tablet 11/12/2022 Active pantoprazole EC (Protonix) 40 MG tablet TAKE ONE TABLET BY MOUTH EVERY DAY FOR STOMACH 10/28/2022 Active spironolactone (Aldactone) 50 MG tablet spironolactone 50 mg tablet TAKE TWO TABLETS BY MOUTH EVERY DAY Active Active Problems Problem Noted Date Diagnosed Date Intentional drug overdose of clonazepam 08/09/20 16 Assessment & Plan (12/31/2016 1:27 PM FOUNTAIN HELPER): Assessment: 16 yo female with previous suicide attempts by cutting and drug OD, presenting following intentional drug overdose of lamictal and clonazepam requiring intubation. Now demonstrates improving neurological and motor functioning. Pt now ambulating unassisted. Pt is medically clear for potential transfer to inpatient psychiatry program to continue treatment. Plan: - VS q8h - sitter in room - SLIV - regular diet - restart home meds - PT seeing bid - SAS to evaluate - tox following Assessment & Plan (12/31/2016 1:00 PM FOUNTAIN HELPER): Assessment: 16 yo female with previous suicide attempts by cutting and drug OD, presenting following intentional drug overdose of lamictal and clonazepam requiring intubation. Now demonstrates improving neurological and motor functioning. Pt now ambulating unassisted. Pt is medically clear for potential transfer to inpatient psychiatry program to continue treatment. Plan: - VS q8h - sitter in room - SLIV - regular diet - restart home meds - PT seeing bid - SAS to evaluate - tox following Assessment & Plan (12/31/2016 11:44 AM FOUNTAIN HELPER): Assessment: 16 y.o. F with complex psychiatric history requiring previous inpatient stay presenting for intentional overdose of clonazepam and lamictal requiring intubation. Patient was extubated to room air on 12/27 given improved mental status. Patient was transferred from PICU to floors on 12/28. Patient has had improved PO intake and good urine/stool output. Patient's speech, mentation, and gait have returned to baseline. Patient is medicall cleared and ready for evaluation by ZENY. Plan: - ZENY evaluation pending as patient is now medically cleared - Sitter in room given SI on admission - Regular diet - All other home meds restarted - Continue physical therapy for gait instability - Discontinue Miralax as patient has had good stool output - Discontinue SCDs as patient is now ambulating - Toxicology following - Vitals q8h Assessment & Plan (12/30/2016 1:22 PM FOUNTAIN HELPER): Assessment: 16 y.o. F with complex psychiatric history requiring previous inpatient stay presenting for intentional overdose of clonazepam and lamictal requiring intubation. Patient was extubated to room air on 12/27 given improved mental status. Patient was transferred from PICU to floors on 12/28. Patient has had improved PO intake and good urine/stool output. Continued improvement in speech and mentation appreciated; however, patient has also required continued assistance with ambulation. Patient is not yet ready for SAS evaluation given inability to ambulate independently. Will continue to monitor. Plan: - Continue to monitor with plan for SAS evaluation once patient has returned to baseline - Sitter in room given SI on admission - Regular diet - Discontinue maintenance fluids given good PO intake - All other home meds restarted - Continue physical therapy for gait instability - Miralax for constipation - Toxicology following - Vitals q8h Assessment & Plan (12/30/2016 1:04 PM FOUNTAIN HELPER): Assessment: 16 yo female with previous suicide attempts by cutting and drug OD, presenting following intentional drug overdose of lamictal and clonazepam requiring intubation. Now demonstrates improving neurological and motor functioning. Still requiring some assistance with ambulation Plan: - VS q8h - sitter in room - SLIV - regular diet - restart home meds - PT seeing bid - SAS to evaluate when medically back to baseline (neuro-motor functioning still very slightly suboptimal) - tox following - continue monitoring for improved balance and ambulation Assessment & Plan (12/30/2016 11:05 AM FOUNTAIN HELPER): Assessment: 16 yo female with previous suicide attempts by cutting and drug OD, presenting following intentional drug overdose of lamictal and clonazepam requiring intubation. Now demonstrates greatly improved neurological and motor functioning. Plan: - VS q8h - sitter in room - SLIV - regular diet - restart home meds - PT seeing bid - SAS to evaluate when medically back to baseline (neuro-motor functioning still very slightly suboptimal) - tox following - continue monitoring for improved balance and ambulation Assessment & Plan (12/29/2016 12:00 PM FOUNTAIN HELPER): Assessment: 16 yo female with previous suicide attempts by cutting and drug OD, presenting following intentional drug overdose of lamictal and clonazepam requiring intubation. Is now awake, alert, but still weak on exam likely secondary to benzodiazepines. Plan: - VS q8h - sitter in room - SLIV - regular diet - restart home meds - SAS to evaluate when medically back to baseline (neuro-motor functioning still suboptimal) - tox following - PT eval and treat today Assessment & Plan (12/29/2016 11:14 AM FOUNTAIN HELPER): Assessment: 16 yo female with previous suicide attempts by cutting and drug OD, presenting following intentional drug overdose of lamictal and clonazepam requiring intubation. Is now awake, alert, but still weak on exam likely secondary to benzodiazepines. Plan: - VS q8h - sitter in room - SLIV - regular diet - restart home meds - SAS to evaluate when medically back to baseline (neuro-motor functioning still suboptimal) - tox following - PT eval and treat today Assessment & Plan (12/29/2016 11:07 AM FOUNTAIN HELPER): Assessment: 16 y.o. F with complex psychiatric history requiring previous inpatient stay presenting for intentional overdose of clonazepam and lamictal requiring intubation. Patient was extubated to room air on 12/27 given improved mental status. Patient was transferred from PICU to floors on 12/28. Patient has had poor PO intake and poor stool output. Patient has continued improvement in movement and mentation; however, given continued unsteadiness and slowed speech/mentation, patient has not returned to baseline and is not appropriate for discharge to next level of care. Plan: - Continue to monitor with plan for SAS evaluation once patient has returned to baseline - Sitter in room given SI on admission - Regular diet - mIVF: D5 1/2NS at 100 mL/hr decreased to D5 1/2NS at 50 mL/hr - Restart home Remeron today (12/29); all other home meds restarted - Physical therapy today (12/29) for gait instability - Miralax for constipation - Toxicology following - Vitals q8h Assessment & Plan (12/28/2016 2:09 PM FOUNTAIN HELPER): Assessment: 16 yo female with previous suicide attempts by cutting and drug OD, presenting following intentional drug overdose of lamictal and clonazepam requiring intubation. Is now awake, alert, but still weak on exam likely secondary to benzodiazepines. Plan: - transfer to general peds service under Dr. Chirinos - VS q8h - sitter in room - SLIV - regular diet - restart home meds - SAS to evaluate when medically back to baseline (neuro-motor functioning still suboptimal) - tox following Assessment & Plan (12/28/2016 12:37 PM FOUNTAIN HELPER): Assessment: 16 yo female with previous suicide attempts by cutting and drug OD, presenting following intentional drug overdose of lamictal and clonazepam requiring intubation. Is now awake, alert, but still weak on exam likely secondary to benzodiazepines. Plan: - transfer to general peds service under Dr. Chirinos - VS q8h - sitter in room - SLIV - regular diet - restart home meds - SAS to evaluate when medically back to baseline (neuro-motor functioning still suboptimal) - tox following Assessment & Plan (12/28/2016 9:30 AM FOUNTAIN HELPER): Assessment: Isabel Kuo is a 16 yo female with hx of depression, anxiety, bipolar and previous suicidal attempts who presented after intentional ingestion of clonazepam (0.5 mg tablets of potentially 60 tabs) and lamictal (25 mg tablets of potentially 120 tablets). GCS 7 at OSH requiring intubation. UDS + benzos with normal EKG. Monitored in PICU, extubated on 12/27 to RA. With reassuring neuro exam and alert and oriented x3, now stable for transfer to floor. Plan: - transfer to floor CV: - hemodynamically stable - CR monitors RESP: - HEATH FEN/GI: - clear liquid diet, ADAT - D5 1/2 NS @ 100 ml/hr - I/Os - Pepcid IV PSYCH: - toxicology consult - suicide precautions, 1:1 sitter - central intake eval now that medically clear Assessment & Plan (12/26/2016 11:58 AM FOUNTAIN HELPER): Assessment: Isabel Kuo is a 16 yo female with hx of depression, anxiety, bipolar and previous suicidal attempts who presents after intentional ingestion of clonazepam (0.5 mg tablets of potentially 60 tabs) and lamictal (25 mg tablets of potentially 120 tablets). GCS 7 at OSH requiring intubation. UDS + benzos with normal EKG. Close monitoring and care in the PICU are required due to Isabel's potential metabolic failure, existing respiratory failure, potential circulatory failure and existing neurologic failure. Plan: - admit to PICU CV: - hemodynamically stable - CR monitors RESP: - VC-MMV R 10, TV 400, PEEP 5, PS 6, iT 1.2, FiO2 25% FEN/GI: - NPO - D5 1/2 NS @ 100 ml/hr - I/Os, ny in place - Pepcid IV NEURO: - precedex 15 mcg/kg/min, boluses of 500 mcg/kg q3 min x3 --> if requiring more, will plan to increase basal rate. PSYCH: - upon extubation, will initiate suicide precautions and obtain central intake evaluation - toxicology consult LINES: - PIV x2, ETT, NG Assessment & Plan (08/13/2016 2:39 PM CDT): Assessment: Isabel is admitted following a clonazepam ingestion in a suicide attempt. She is now medically stable. Isabel and her parents are refusing inpatient psychiatric admission. Social work has evaluated and with Isabel being almost 17 years old, involuntary admission would be unlikely. Isabel has an appointment with her psychiatrist on 08/20. Family is aware that our recommendation is that Isabel go for inpatient treatment. They have a plan for an aunt to stay with her and for her to follow-up with her psychiatrist next week. Plan: - Will d/c home - Follow-up with psychiatrist on 08/20 as previously scheduled - 1:1 sitter and safety tray Assessment & Plan (08/12/2016 5:40 PM CDT): Assessment: Isabel is admitted following a clonazepam ingestion in a suicide attempt. She is currently returned to baseline mental status. She is medically stable. Family and Isabel are refusing inpatient psychiaty at this time. director of special services has been consulted for further discharge planning and placement. Plan: - Await health social work professor recommendations -refusing inpatient psychiatry facility at this time -cancelled [facility] -refusing [facility] inpatient facility at this time - 1:1 sitter and safety tray Assessment & Plan (08/12/2016 11:50 AM CDT): Assessment: Isabel is admitted following a clonazepam ingestion in a suicide attempt. She is currently returned to baseline mental status. She is medically stable and awaiting inpatient psychiatric placement. Plan: - Await inpatient psychiatric bed - 1:1 sitter and safety tray Assessment & Plan (08/11/2016 8:18 PM CDT): Assessment: Isabel is admitted following a clonazepam ingestion in a suicide attempt. She is currently returned to baseline mental status. Toxicology input is appreciated. Plan: - Central Intake to see regarding inpatient psychiatric placement - will restart psych meds after consulting with Toxicology - 1:1 sitter and safety tray Assessment & Plan (08/11/2016 2:45 PM CDT): Assessment: Isabel is admitted following a clonazepam ingestion in a suicide attempt. She is currently returned to baseline mental status. Toxicology input is appreciated. Plan: - Central Intake to see regarding inpatient psychiatric placement - will restart psych meds after consulting with Toxicology - 1:1 sitter and safety tray Assessment & Plan (08/10/2016 4:07 PM CDT): Assessment: Isabel is a 16yo girl with known depression and bipolar disorder an one prior SI attempt presenting after an intentional ingestion. UDS positive for benzodiazepines. Ingestion appears to have been an impulse event triggered by persistent thoughts of self-harm. No concerns for respiratory depression at this time, but given long half life of ingested substance, requires hospital admission for potential respiratory depression and altered mental status. Toxicology is following and agrees that she should stay another night to be medically cleared. Isabel reports still feeling out of it. Plan: FEN/GI: - Regular diet - Continue D5 1/2NS with 20mEq of KCl at 100mL/hr - I/O CV/Resp: - CR monitors - Pulse ox - Vitals q8hrs Tox: - Toxicology consulted, appreciate recs Psych: - Holding home meds - 1:1 sitter and safety tray - Will contact Central Intake when medically cleared Assessment & Plan (08/10/2016 3:58 PM CDT): Assessment: Isabel is a 16yo girl with known depression and bipolar disorder an one prior SI attempt presenting after an intentional ingestion. Ingestion appears to have been an impulse event triggered by persistent thoughts of self-harm. No concerns for respiratory depression at this time, but given long half life of ingested substance, requires hospital admission for potential respiratory depression and altered mental status. 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 Plan: - to be seen by SAS - health and safety tech, tray Assessment & Plan (12/31/2016 1:00 PM FOUNTAIN HELPER): Assessment: 16 yo female with previous suicide attempts and inpatient psych admissions, presenting following intentional drug overdose of lamictal and clonazepam requiring intubation. Plan: - to be seen by augustine Gerardo Assessment & Plan (12/30/2016 1:04 PM FOUNTAIN HELPER): Assessment: 16 yo female with previous suicide attempts and inpatient psych admissions, presenting following intentional drug overdose of lamictal and clonazepam requiring intubation. Plan: - to be seen by augustine Gerardo Assessment & Plan (12/29/2016 12:00 PM FOUNTAIN HELPER): Assessment: 16 yo female with previous suicide attempts and inpatient psych admissions, presenting following intentional drug overdose of lamictal and clonazepam requiring intubation. Plan: - to be seen by augustine Gerardo Assessment & Plan (12/29/2016 11:14 AM FOUNTAIN HELPER): Assessment: 16 yo female with previous suicide attempts and inpatient psych admissions, presenting following intentional drug overdose of lamictal and clonazepam requiring intubation. Plan: - to be seen by augustine Gerardo Assessment & Plan (12/28/2016 2:06 PM FOUNTAIN HELPER): Assessment: 16 yo female with previous suicide attempts and inpatient psych admissions, presenting following intentional drug overdose of lamictal and clonazepam requiring intubation. Plan: - to be seen by augustine Gerardo Assessment & Plan (12/28/2016 12:34 PM FOUNTAIN HELPER): Assessment: 16 yo female with previous suicide attempts and inpatient psych admissions, presenting following intentional drug overdose of lamictal and clonazepam requiring intubation. Plan: - to be seen by augustine Gerardo Suicidal ideation Resolved Problems Problem Noted Date Diagnosed Date Resolved Date Screening for STD (sexually transmitted disease) 08/10/2016 08/12/2016 Assessment & Plan (08/10/2016 4:08 PM CDT): Assessment: Treated for GC 06/2016. Single current partner but inconsistent condom use. Plan: Urine for GC/chlamydia Check to see if HIV/RPR done 06/2016 Needs counseling on high risk sexual behavior Assessment & Plan (08/10/2016 4:01 PM CDT): Assessment: Treated for GC 06/2016. Single current partner but inconsistent condom use. Plan: Urine for GC/chlamydia Check to see if HIV/RPR done 06/2016 Needs counseling on high risk sexual behavior Acute respiratory failure wi th hypoxia and hypercapnia 12/28/2016 Roland coma scale total score 3-8 12/28/2016 Social History Tobacco Use Types Packs/Day Years Used Date Smoking Tobacco: Never Passive Smoke Exposure: Yes Smokeless Tobacco: Never Tobacco Cessation:Counseling Given: Not Answered Alcohol Use Standard Drinks/Week Comments Yes 0 (1 standard drink = 0.6 oz pur e alcohol) Occasional Sex and Gender Information Value Date Recorded Sex Assigned at Not on file Gender Identity Not on file Sexual Orientation Not on file Last Filed Vital Signs Vital Sign Reading Time Taken Comments Blood Pressure 100/70 11/13/2022 9:05 AM FOUNTAIN HELPER Pulse 97 11/13/2022 9:05 AM FOUNTAIN HELPER Temperature 36.8 C (98.2 F) 11/13/2022 9:05 AM FOUNTAIN HELPER Respiratory Rate 20 12/31/2016 7:50 PM FOUNTAIN HELPER Oxygen Saturation 99% 11/13/2022 9:05 AM FOUNTAIN HELPER Inhaled Oxygen Concentration 21% 12/27/2016 1 :59 PM FOUNTAIN HELPER Weight 86 kg (189 lb 9.6 oz) 11/13/2022 9:05 AM FOUNTAIN HELPER Height 155.6 cm (5' 1.25 ) 12/16/2017 8:36 AM CS T Body Mass Index 35.53 12/16/2017 8:36 AM FOUNTAIN HELPER Functional Status Functional Status Response Date of Assess ment Is person deaf or have serious hearing difficult y? No 12/26/2016 Is person blind or have serious difficulty seein g? No 12/26/2016 Does person have serious dif ficulty walking/climbing stairs? No 12/26/2016 Does person have difficulty dressing/bathing? No 12/26/2016 Does person have difficulty doing errands alone? No 12/26/2016 Cognitive Status Response Date of Assessm ent Does person have difficulty concentrating/remembering/making decisions? No 12/26/2016 Plan of Treatment Not on file Procedures Procedure Name Priority Date/Time Associated Diagnosis Comments CHLAMYDIA + GC AMPLIFIED PROBE Routine 08/10/2016 9:49 AM CDT from Last 3 Months or Most Recently Relevant to Health Maintenance Results * CHLAMYDIA + GC AMPLIFIED PROBE (08/10/2016 9:49 AM CDT) Chlamydia Amplified Probe Negative Negative 08/11/2016 11:18 AM CDT [facility] GC Amplified Probe Negative Negative 08/11/2016 11:18 AM CDT [facility] Urine URINE / Unknown 08/10/2016 9 :49 AM CDT 08/10/2016 10:02 AM CDT Narrative [facility] - 08/11/2016 11:18 AM CDT This test was developed and its performance characteristics determined by the [facility], [facility]. Female urine specimens tested by the [facility] have not been cleared or approved by the U.S. Food and Drug Administration (FDA). The laboratory is regulated under the Clinical Laboratory Improvement Amendments (CLIA) as qualified to perform high-complexity testing. This test is used for clinical purposes. It should not be regarded as investigational or for research. Results based on detection/no detection of ribosomal RNA by amplified method. Adore Zafar MD LAB - MICROBIOLOGY O RDERABLES [facility] [address] [place] [address], [facility] [phone] from Last 3 Months or Most Recently Relevant to Health Maintenance Advance Directives * Full Code (Latest Code Status on File) Date Activated Date Inactivated Comments 12/26/2016 7:42 AM 12/31/2016 9:24 PM * Full Code Date Activated Date Inactivated Comments 08/09/2016 10:38 PM 08/13/2016 4:55 PM Care Teams Network Developer Relationship Specialty Start Date End Date Oc Quan APRN-YANCY [address] [place] [address] [phone] PCP - General Nurse Practitioner 08/09/16 Cony Hebert APRN-MOLD HOLDER [address] [place] [id number] Clinical Reviewer Nurse Practitioner 11/13/22
--- OUTSIDE RECORDS SUMMARY | 2024-12-29 09:26 | XMS_ITS | Patient Health Summary ---
Author Organization [facility] Address [address] [place] [address] Care Team Providers Care Slash Trimmer Name Role Phone Oc Quan CASTING MACHINE SET UP OPERATOR-TRACK SUPERVISOR Primary Care Pro vider Cony Hebert CASTING MACHINE SET UP OPERATOR-TRACK SUPERVISOR Unavailable Note from [facility],non-owned Affiliates and Associated Physician Practices is amultiple site organization consisting of ambulatory clinics and hospital sitesin [place], [place], [place] and [place]. This disclosure is being madepursuant to the Care Everywhere program and may not contain all information available regarding this patient. Last updated 18.[facility] Allergies No known active allergies Medications * Be aware that medications may not be up to date on this document. Alwaysverify current medications with the patient. * mirtazapine (REMERON) 15 MG tablet Take 15 mg by mouth at bedtime * medroxyPROGESTERone (Depo-Provera) 150 MG/ML vial Inject 150 mg into muscle Every 90 days * buPROPion XL 24hr (WELLBUTRIN-XL) 300 MG tablet Take 300 mg by mouth every morning * doxycycline monohydrate 100 MG tablet(Started 06/16/2019) Take 1 tablet by mouth 2 times daily Reasons: Common Acne 2 refills remaining * erythromycin (ERYDERM) 2 % solution(Started 06/17/2019) Apply to face area daily. 30 days supply. 2 refills remaining * adapalene (DIFFERIN) 0.1 % gel(Started 06/17/2019) Pea sized amount to entire face at night.. 30 days supply. 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, without psychotic features Suicidal ideation Resolved Problems Problem Noted Date Diagnosed Date Resolved Date Screening for STD (sexually transmitted disease) 08/10/2016 08/12/2016 Acute respiratory failure wi th hypoxia and hypercapnia 12/28/2016 [place] coma scale total score 3-8 12/28/2016 Social [...] Comments Blood Pressure 100/70 11/13/2022 9:05 AM PHARMACY CARE COORDINATOR Pulse 97 11/13/2022 9:05 AM PHARMACY CARE COORDINATOR Temperature 36.8 C (98.2 F) 11/13/2022 9:05 AM PHARMACY CARE COORDINATOR Respiratory Rate 20 12/31/2016 7:50 PM PHARMACY CARE COORDINATOR Oxygen Saturation 99% 11/13/2022 9:05 AM PHARMACY CARE COORDINATOR Inhaled Oxygen Concentration 21% 12/27/2016 1 :59 PM PHARMACY CARE COORDINATOR Weight 86 kg (189 lb 9.6 oz) 11/13/2022 9:05 AM PHARMACY CARE COORDINATOR Height 155.6 cm (5' 1.25 ) 12/16/2017 8:36 AM CS T Body Mass Index 35.53 12/16/2017 8:36 AM PHARMACY CARE COORDINATOR Procedures * COMPREHENSIVE METABOLIC PANEL(Performed 12/31/2016) * CBC W/O DIFFERENTIAL(Performed 12/31/2016) * LAB RESULTS ORDER(Performed 12/29/2016) * CARDIAC EKG ORDER(Performed 12/29/2016) * BLOOD GASES CAP + LYTES GLUC CA+ PANEL(Performed 12/27/2016) * XR CHEST 1VW(Performed 12/27/2016) Performed for Intentional drug overdose, initial encounter ([facility]) * HCG URINE QUALITATIVE(Performed 12/26/2016) * CARBAMAZEPINE LEVEL TOTAL(Performed 12/26/2016) * CREATININE BLOOD(Performed 12/26/2016) * BUN(Performed 12/26/2016) * URINE DRUG SCREEN IMMUNOASSAY(Performed 12/26/2016) * CULTURE MRSA(Performed 12/26/2016) * GLUCOSE WHOLE BLOOD(Performed 12/26/2016) * BLOOD GASES CAP + LYTES CA+ PANEL(Performed 12/26/2016) * XR CHEST 1VW(Performed 12/26/2016) Performed for Intentional drug overdose, initial encounter ([facility]) * ED CRITICAL CARE(Performed 08/16/2016) * LAB RESULTS ORDER(Performed 08/14/2016) * CARDIAC EKG ORDER(Performed 08/11/2016) * CHLAMYDIA + GC AMPLIFIED PROBE(Performed 08/10/2016) * EKG 15-LEAD(Performed 08/09/2016) Performed for Suicide attempt by other psychotropic drug overdose, initial encounter ([facility]), Intentional clonazepam overdose, initial encounter ([facility]) * HCG URINE QUALITATIVE - POCT (IP) BEAKER(Performed 08/09/2016) * URINE DRUG SCREEN IMMUNOASSAY(Performed 08/09/2016) Results * CBC W/O DIFFERENTIAL (12/31/2016 4:51 PM [facility]) WBC 6.6 4.5 - 11.0 x10E9/L 12/31/2016 5:22 PM [facility] RBC 4.17 4.10 - 5.10 x10E12/L 12/31/2016 5:22 PM [facility] Hemoglobin 12.4 12.0 - 16.0 gm/dL 12/31/2016 5:22 PM [facility] Hematocrit 36.8 36.0 - 47.0 % 12/31/2016 5:22 PM [facility] MCV 88.2 78.0 - 98.0 fl 12/31/2016 5:22 PM [facility] MCH 29.7 25.0 - 35.0 pg 12/31/2016 5:22 PM [facility] MCHC 33.7 31.0 - 37.0 gm/dL 12/31/2016 5:22 PM [facility] Platelet Count 364 100 - 400 x10E9/L 12/31/2016 5:22 PM [facility] RDW-CV 11.8 11.5 - 14.0 % 12/31/2016 5:22 PM [facility] MPV 9.3 6.0 - 9.5 fl 12/31/2016 5:22 PM [facility] Blood BLOOD SPECIMEN / Unknown Lab Venipuncture / Unknown 12/31/2016 4:51 PM [facility] 12/31/2016 5:11 PM [facility] Esther Rolle MD LAB - HEMATOLOGY OR DERABLES Performing Organization Address City/State/[facility] Co in Phone Number [facility] [place] [address] * (ABNORMAL) COMPREHENSIVE METABOLIC PANEL (12/31/2016 4:51 PM [facility]) [facility] Glucose 99 70 - 105 mg/dL 12/31/2016 5:53 PM [facility] Sodium 141 136 - 145 mmol/L 12/31/2016 5:53 PM [facility] Potassium 4.3 3.5 - 5.1 mmol/L 12/31/2016 5:53 PM [facility] Chloride 109(H) 98 - 107 mmol/L 12/31/2016 5:53 PM [facility] CO2 23 20 - 28 mmol/L 12/31/2016 5:53 PM [facility] Calcium 9.14 9.08 - 10.48 mg/dL 12/31/2016 5:53 PM [facility] Anion Gap 9 5 - 20 mmol/L 12/31/2016 5:53 PM [facility] BUN 10.0 5.3 - 18.7 mg/dL 12/31/2016 5:53 PM [facility] Creatinine 0.59(L) 0.61 - 1.07 mg/dL 12/31/2016 5:53 PM [facility] Alkaline Phosphatase 80(L) 100 - 390 U/L 12/31/2016 5:53 PM [facility] ALT 12 8 - 65 U/L 12/31/2016 5:53 PM [facility] AST 14 3 - 35 U/L 12/31/2016 5:53 PM [facility] Protein Total 7.0 6.3 - 8.2 gm/dL 12/31/2016 5:53 PM [facility] Albumin 3.7 3.3 - 4.9 gm/dL 12/31/2016 5:53 PM [facility] Bilirubin Total 0.3 0.3 - 1.2 mg/dL 12/31/2016 5:53 PM [facility] eGFR by MDRD >60 mL/min/1. 73m2 12/31/2016 5:53 PM [facility] Comment: eGFR calculations are not performed for children under 18 years old. eGFR by MDRD >60 mL/min/1. 73m2 12/31/2016 5:53 PM [facility] Comment: eGFR calculations are not performed for children under 18 years old. Blood BLOOD SPECIMEN / Unknown Lab Venipuncture / Unknown 12/31/2016 4:51 PM PHARMACY CARE COORDINATOR 12/31/2016 5:11 PM PHARMACY CARE COORDINATOR Esther Rolle MD LAB - CHEMISTRY ORD ERABLES Performing Organization Address [facility]/State/[facility] Co de Phone Number [facility] [address] [place] [address] * LAB RESULTS ORDER (12/29/2016 8:57 PM PHARMACY CARE COORDINATOR) Only the most recent of2 resultswithin the time period is included. Narrative 12/29/2016 8:57 PM PHARMACY CARE COORDINATOR Ordered by an unspecified provider. Scanned Document LAB - THERAPEUTIC DR APRIL MONITORING ORDERABLES * CARDIAC EKG ORDER (12/29/2016 8:57 PM PHARMACY CARE COORDINATOR) Only the most recent of2 resultswithin the time period is included. Narrative 12/29/2016 8:57 PM PHARMACY CARE COORDINATOR Ordered by an unspecified provider. Scanned Document CARDIAC SERVICES ORD ERABLES * (ABNORMAL) BLOOD GASES CAP + LYTES GLUC CA+ PANEL (12/27/2016 3:15 PM [facility]) pH Capillary 7.45 7.35 - 7.45 pH 12/27/2016 3:24 PM [facility] pCO2 Capillary 37 32 - 45 mm hg 12/27/2016 3:24 PM [facility] pO2 Capillary 54(H) 40 - 50 mm hg 12/27/2016 3:24 PM [facility] Hemoglobin Capillary 11.5(L) 12.0 - 16.0 gm/dL 12/27/2016 3:24 PM [facility] O2 Saturation Capillary 92(L) 95 - 99 % 12/27/2016 3:24 PM [facility] Oxyhemoglobin Capillary 90.4(L) 94 - 98 % 12/27/2016 3:24 PM [facility] Carboxyhemoglobin Capillary 1.0 0.5 - 1.5 % 12/27/2016 3:24 PM [facility] Methemoglobin Capillary 1.2 0.0 - 1.5 % 12/27/2016 3:24 PM [facility] O2 Content Capillary 14.6(L) 15.0 - 23.0 % 12/27/2016 3:24 PM [facility] BE Capillary 1.6 -2.0 - 2.0 mmol/L 12/27/2016 3:24 PM [facility] P50 Capillary 21.38(L) 25.3 - 26.8 mm hg 12/27/2016 3:24 PM [facility] Sodium Whole Blood 144 136 - 146 mmol/L 12/27/2016 3:24 PM [facility] Potassium Whole Blood 3.2(L) 3.4 - 4.5 mmol/L 12/27/2016 3:24 PM [facility] Chloride WB 112(H) 98 - 106 mmol/L 12/27/2016 3:24 PM [facility] TCO2 Capillary 26.4 18 - 27 mmol/L 12/27/2016 3:24 PM [facility] Glucose WB 119(H) 70 - 106 mg/dL 12/27/2016 3:24 PM [facility] Calcium Ionized 1.21 mmol/L 7 3:24 PM [facility] Calcium Ionized Adjusted 1.24 1.15 - 1.29 mmol/L 12/27/2016 3:24 PM [facility] Temp 37.0 C 12/27/2016 3:24 PM PHARMACY CARE COORDINATOR [facility] Blood CAPILLARY BLOOD / Unknown Lab Venipuncture / Unknown 12/27/2016 3:15 PM PHARMACY CARE COORDINATOR 12/27/2016 3:19 PM PHARMACY CARE COORDINATOR Randa Garrison CASTING MACHINE SET UP OPERATOR-TRACK SUPERVISOR LAB - BLOOD GASES O RDERABLES [facility] [address] [place] [address] * XR PORTABLE CHEST XRAY (12/27/2016 5:05 AM PHARMACY CARE COORDINATOR) Only the most recent of2 resultswithin the time period is included. Anatomical Region Laterality Modality Chest Radiographic Asuncion ging 12/27/2016 8:25 AM PHARMACY CARE COORDINATOR Impressions 12/27/2016 9:55 AM PHARMACY CARE COORDINATOR Clear lungs. Dictated by Sree Grubbs MD (resident physician in radiology). Lynette Coon, have personally reviewed the images and I agree with this report. Narrative 12/27/2016 9:55 AM PHARMACY CARE COORDINATOR EXAMINATION: Portable chest, single AP view HISTORY: 16-year-old female with intentional ingestion COMPARISON: Comparison is made with a study from 12/26/2016. FINDINGS: An endotracheal tube terminates in the midthoracic trachea, unchanged. An enteric tube is coiled in the stomach. The lungs are clear. There is no evidence of pleural effusion or pneumothorax. The mediastinal and cardiac silhouettes are normal. Procedure Note Lynette Ruffin MD - 12/27/2016 EXAMINATION: Portable chest, single AP view HISTORY: 16-year-old female with intentional ingestion COMPARISON: Comparison is made with a study from 12/26/2016. FINDINGS: An endotracheal tube terminates in the midthoracic trachea, unchanged. An enteric tube is coiled in the stomach. The lungs are clear. There is no evidence of pleural effusion or pneumothorax. The mediastinal and cardiac silhouettes are normal. IMPRESSION Clear lungs. Dictated by Sree Grubbs MD (resident physician in radiology). Lynette Coon, have personally reviewed the images and I agree with this report. Randa Gandara CASTING MACHINE SET UP OPERATOR-TRACK SUPERVISOR DIAGNOSTIC IMAGIN G ORDERABLES * HCG URINE QUALITATIVE (12/26/2016 5:18 PM PHARMACY CARE COORDINATOR) hCG Qualitative Urine Negative Negative 12/26/2016 6:09 PM [facility] Urine URINE / Unknown 12/26/2016 5 :18 PM PHARMACY CARE COORDINATOR 12/26/2016 6:00 PM PHARMACY CARE COORDINATOR Randa Gandara CASTING MACHINE SET UP OPERATOR-[facility] LAB - URINALYSIS ORDERABLES Performing Organization Address [facility] Co de Phone Number [facility] [address] [place] [phone] * (ABNORMAL) CARBAMAZEPINE LEVEL TOTAL (12/26/2016 3:51 PM PHARMACY CARE COORDINATOR) Pathologist [facility] Carbamazepine <1.9(L) 4.0 - 12.0 ug/mL 12/26/2016 4:31 PM [facility] Blood BLOOD SPECIMEN / Unknown Lab Venipuncture / Unknown 12/26/2016 3:51 PM PHARMACY CARE COORDINATOR 12/26/2016 3:56 PM PHARMACY CARE COORDINATOR Stephenie Agosto CASTING MACHINE SET UP OPERATOR-[facility] LAB - CHEMISTR Y ORDERABLES Performing Organization Address [facility] de Phone Number [facility] [address] [place] [phone] * (ABNORMAL) CREATININE BLOOD (12/26/2016 10:26 AM PHARMACY CARE COORDINATOR) Creatinine 0.55(L) 0.61 - 1.07 mg/dL 12/26/2016 10:54 AM [facility] eGFR by MDRD mL/min/1. 73m2 12/26/2016 10:54 AM [facility] Comment: eGFR calculations are not performed for children under 18 years old. eGFR by MDRD mL/min/1. 73m2 12/26/2016 10:54 AM [facility] Comment: eGFR calculations are not performed for children under 18 years old. Blood BLOOD SPECIMEN / Unknown Lab Venipuncture / Unknown 12/26/2016 10:26 AM PHARMACY CARE COORDINATOR 12/26/2016 10:30 AM PHARMACY CARE COORDINATOR Darlin Peterson DO LAB - CHEMISTRY ORDE ALIZA Performing Organization Address [facility]/ZIP Co de Phone Number [facility] [address] [place] [address] * BUN (12/26/2016 10:26 AM PHARMACY CARE COORDINATOR) Pathologist [facility] BUN 10.5 5.3 - 18.7 mg/dL 12/26/2016 10:54 AM [facility] Blood BLOOD SPECIMEN / Unknown Lab Venipuncture / Unknown 12/26/2016 10:26 AM PHARMACY CARE COORDINATOR 12/26/2016 10:30 AM PHARMACY CARE COORDINATOR Darlin Peterson DO LAB - CHEMISTRY ORDE ALIZA Performing Organization Address [facility]/ZIP Co de Phone Number [facility] [address] [place] [address] * CULTURE MRSA (12/26/2016 10:19 AM [facility]) [facility] Culture Negative for methicillin-resist ant Staphylococcus aureus (MRSA) AMA 12/28/2016 8:27 AM [facility] MICROBIOLOGY Microbiology SPECIMEN FROM NASAL FOSSAE / Unknown 12/26/2016 10:19 AM PHARMACY CARE COORDINATOR 12/26/2016 10:30 AM PHARMACY CARE COORDINATOR Epifaniohayleediogenes Kristen DESAI LAB - MICROBIOLOGY O RDERABLES Performing Organization Address City/[facility]/ZIP Co de Phone Number [facility] [address] [place] [address], [facility] [phone] * (ABNORMAL) DRUG SCREEN TOX URINE PANEL (12/26/2016 10:19 AM [facility]) Only the most recent of2 resultswithin the time period is included. Pathologist [facility] Amphetamines Screen Urine Not Detected Not Detected 12/26/2016 11:09 AM [facility] Barbiturates Screen Urine Not Detected Not Detected 12/26/2016 11:09 AM [facility] Benzodiazepines Screen Urine Detected(AA ) Not Detected 12/26/2016 11:09 AM [facility] Cannabinoids Screen Urine Not Detected Not Detected 12/26/2016 11:09 AM [facility] Cocaine Screen Urine Not Detected Not Detected 12/26/2016 11:09 AM [facility] Methadone Screen Urine Not Detected Not Detected 12/26/2016 11:09 AM [facility] Opiate Screen Urine Not Detected Not Detected 12/26/2016 11:09 AM [facility] Phencyclidine Screen Urine Not Detected Not Detected 12/26/2016 11:09 AM [facility] Urine URINE / Unknown 12/26/2016 1 0:19 AM [facility] 12/26/2016 10:31 AM [facility] Narrative [facility] - 12/26/2016 11:09 AM [facility] This drug screen is designed for MEDICAL purposes only. It is not to be used for legal purposes, including but not limited to worker's comp, police investigations, occupational issues, child custody, etc. Any positive result is only presumptive and must be confirmed with a separate confirmatory test ordered by the physician. Drug Screening Test Cutoff Values: AMPHETAMINES 1000 ng/mL BARBITURATES 200 ng/mL BENZODIAZEPINES 200 ng/mL CANNABINOIDS(THC) 50 ng/mL COCAINE 300 ng/mL METHADONE 300 ng/mL OPIATES 300 ng/mL PHENCYCLIDINE(PCP)25 ng/mL Jaden Sahu MD LAB - URINE CHEMISTR Y ORDERABLES Performing Organization Address City/State/[facility] Co de Phone Number [facility] [address] [place] [address] * (ABNORMAL) BLOOD GASES CAP + LYTES CA+ PANEL (12/26/2016 8:43 AM [facility]) pH Capillary 7.29(L) 7.35 - 7.45 pH 12/26/2016 8:53 AM [facility] pCO2 Capillary 43 32 - 45 mm hg 12/26/2016 8:53 AM [facility] pO2 Capillary 94(H) 40 - 50 mm hg 12/26/2016 8:53 AM [facility] O2 Saturation Capillary 97 95 - 99 % 12/26/2016 8:53 AM [facility] BE Capillary -5.5(L) -2.0 - 2.0 mmol/L 12/26/2016 8:53 AM [facility] Hemoglobin Capillary 12.7 12.0 - 16.0 gm/dL 12/26/2016 8:53 AM [facility] Chloride WB 110(H) 98 - 106 mmol/L 12/26/2016 8:53 AM [facility] Calcium Ionized 1.25 mmol/L 7 8:53 AM [facility] Calcium Ionized Adjusted 1.18 1.15 - 1.29 mmol/L 12/26/2016 8:53 AM [facility] Potassium Whole Blood 3.5 3.4 - 4.5 mmol/L 12/26/2016 8:53 AM [facility] Sodium Whole Blood 142 136 - 146 mmol/L 12/26/2016 8:53 AM [facility] Oxyhemoglobin Capillary 95.6 94 - 98 % 12/26/2016 8:53 AM [facility] Carboxyhemoglobin Capillary 0.4(L) 0.5 - 1.5 % 12/26/2016 8:53 AM [facility] Methemoglobin Capillary 1.2 0.0 - 1.5 % 12/26/2016 8:53 AM [facility] O2 Content Capillary 17.2 15.0 - 23.0 % 12/26/2016 8:53 AM [facility] P50 Capillary 29.52(H) 25.3 - 26.8 mm hg 12/26/2016 8:53 AM [facility] Temp 37.0 C 12/26/2016 8:53 AM [facility] TCO2 Capillary 21.2 18 - 27 mmol/L 12/26/2016 8:53 AM [facility] Blood CAPILLARY BLOOD / Unknown Lab Venipuncture / Unknown 12/26/2016 8:43 AM [facility] 12/26/2016 8:48 AM [facility] Darlin Peterson DO LAB - BLOOD GASES OR DERABLES Performing Organization Address City/State/[facility] Co de Phone Number [facility] [address] [place], [place] [id number] * (ABNORMAL) GLUCOSE WHOLE BLOOD (12/26/2016 8:43 AM [facility]) [facility] Glucose WB 129(H) 70 - 106 mg/dL 12/26/2016 9:22 AM [facility] Blood WHOLE BLOOD SPECIMEN / Unknown 12/26/2016 8:43 AM PHARMACY CARE COORDINATOR 12/26/2016 9:22 AM PHARMACY CARE COORDINATOR Jaden Sahu MD LAB - CHEMISTRY DWAYNE ABRAMS [facility] [address] [place] [address] * ED CRITICAL CARE (08/16/2016 5:47 PM CDT) Narrative Nilda Orellana DO - 08/16/2016 5:47 PM CDT Nilda Orellana DO 08/16/2016 5:47 PM Provider contact with the patient: 08/09/2016 20:30 Isabel Kuo [id number] [facility] History Chief Complaint Patient presents with Overdose Intentional asking in route why she didn't , states she took 18mg and wants to know why she didn't , arrives lethargic, took 40 0.5mg klonopin per report, answers questions but is slow to respond I have read the resident/SERVICE TECH/WELDER history. Unless appended by me below, I agree with findings as documented. HPI Comments: CC; suicide attempt, clonidine ingestion Pt with h/o anxiety, and bipolar disease here now after an intentional ingestion of 20mg of klonopin as a suicide attempt at ~1700 today At about 1730 she sent here mom a text saying good bye, Mom called EMS Taken to OSH ED At OSH, she was drowsy but arousable. CBC, CMP, Tylenol, salicylate, EtOH, Tegretol level all unremarkable. She received 500 ml NS bolus, but UDS not able to be collected prior to transfer. Per poison control center [place] and [place], rec to observe and provide supportive care. Review of Systems All relevant systems reviewed and all negative except as noted in resident and attending HPI/ROS Review of Systems BP 105/72 mmHg Pulse 92 Temp(Src) 98 F Resp 20 Wt 58.968 kg (130 lb) SpO2 98% Physical Exam I have reviewed the resident/SERVICE TECH/WELDER physical exam. Unless appended by me below, I agree with the PE as documented. Physical Exam Constitutional: She appears well-developed and well-nourished. No distress. Cardiovascular: Normal rate. Pulmonary/Chest: Effort normal. Neurological: Sleepy, but easily awakens, answers questions appropriately Procedures Critical Care Performed by: NILDA ORELLANA Authorized by: NILDA ORELLANA Total critical care time: 35 minutes Critical care time was exclusive of separately billable procedures and treating other patients and teaching time. Critical care was necessary to treat or prevent imminent or life-threatening deterioration of the following conditions: toxidrome, COMMUNICATION INSTRUCTOR failure or compromise and circulatory failure. Critical care was time spent personally by me on the following activities: development of treatment plan with patient or surrogate, ordering and performing treatments and interventions, pulse oximetry and re-evaluation of patient's condition. ECG Interpretation ECG Interpretation Lab/SPO2 Interpretation No results found for this visit on 08/09/16. No orders to display Progress Notes ED Course Pt sleepy, but awakens easily. Interacts appropriately. Placed on full CR monitor with continuous pulse oximetry. Frequent neurologic evaluation. safety belt installer at bedside Poison Center contacted, recommended pt be monitored for ~24 hours post ingestion Admitted to clinic medicine for further management. Medical Decision Making I have reviewed the: Nursing Notes and Vitals. I have interpreted the following results: Oxygen Saturation. The total time providing critical care (excluding time spent for procedures) was: 35 minutes. See procedure note section for additional critical care details I have personally seen and examined this patient. I have fully participated in the care of this patient. I have reviewed all pertinent clinical information available to me during this encounter, including history, physical exam and plan. I have reviewed nursing notes, available labs and radiographic studies. With respect to physicians in training and mid-level providers, I agree with the assessment and plan except if revised in my note. Clinical Impression 1. Klonopin overdose 2. Suicide attempt Nilda Orellana DO PROCEDURE/MINOR SURG ICAL ORDERABLES * CHLAMYDIA + GC AMPLIFIED PROBE (08/10/2016 9:49 AM CDT) Chlamydia Amplified Probe Negative Negative 08/11/2016 11:18 AM CDT [facility] GC Amplified Probe Negative Negative 08/11/2016 11:18 AM CDT [facility] Urine URINE / Unknown 08/10/2016 9 :49 AM CDT 08/10/2016 10:02 AM CDT Narrative [facility] - 08/11/2016 11:18 AM CDT This test was developed and its performance characteristics determined by the [facility], [facility]. Female urine specimens tested by the [facility] [place] have not been cleared or approved by [...] Zafar MD LAB - MICROBIOLOGY O RDERABLES Performing Organization Address [facility] Co de Phone Number [facility] [address] [place], [place] [address], [facility] [phone] * EKG 15-LEAD (08/09/2016 10:12 PM CDT) Ventricular Rate 84 BPM CG MUSE Atrial Rate 84 BPM CG MUSE P-R Interval 152 ms CG MUSE QRS Duration ms 78 ms CG MUSE Q-T Interval ms 358 ms CG MUSE QTC Calculation (Bezet) 423 ms CG MUSE Calculated P [place] 63 degrees CG MUSE Calculated R [place] 52 degrees CG MUSE Calculated T [place] 33 degrees CG MUSE Interpretation EKG Normal sinus rhythm Normal ECG No previous ECGs available Confirmed by ALEXANDRE MEJIA ([id number]) on 08/18/2016 4:03:33 PM CG MUSE 08/09/2016 10:1 2 PM CDT 08/18/2016 4:03 PM CDT Mabel Awan MD ECG ORDERABLES Performing Organization Address [facility] Co de Phone Number CG MUSE * HCG URINE QUALITATIVE - POCT (IP) MEKA (08/09/2016 10:10 PM CDT) HCG Qual Urine Negative Negative [facility] QC Verified Yes Yes [facility] PO CT TESTING Urine specimen (specimen) URINE / Unknown 08/09/2016 10:10 PM CDT Mabel Awan MD LAB - POINT OF CARE ORDERABLES Performing Organization Address City/[facility]/ZIP Co de Phone Number [facility] [address] [place] [address], [facility] [phone] Care Teams Slash Trimmer Relationship Specialty Start Date End Date Oc Quan APRN-CNP [address] [phone] PCP - General Nurse Practitioner 08/09/16 Cnoy Hebert APRN-CNP [address] [place] [phone] Otologist Nurse Practitioner 11/13/22
--- OUTSIDE RECORDS SUMMARY | 2024-12-29 09:26 | XMS_ITS | Clinical Summary ---
Author Organization [facility] Address [address] [place] [address] Care Team Providers Care Shoe Salesman Name Role Phone Oc Quan NP Primary Care Provider [phone] Allergies No known active allergies Medications ondansetron [...] on file Legal Sex Female 8:53 PM STATISTICIAN APPLIED Gender Identity Not on file Sexual Orientation Not on file Obstetrics History Last Filed Vital Signs Vital Sign Reading [...] 05/29/2023 1:37 PM CDT Plan of Treatment Health Maintenance Due Date Last Done Comments Cervical Cancer Screening 1999 Depression Screening 1999 Hepatitis C Screening 1999 Regular Well Visit/Exam 18-64 2017 DTaP/Tdap/Td Vaccine (7 - Td or Tdap) 07/05/2020 07/05/2010, 03/17/2003, 06/06/2000, Additional history exists Influenza Vaccine (#1) 2024 9, 01/18/2018, 09/01/2016 Hepatitis B Screening Completed 1999 , 1999, 1999 Varicella Vaccines Completed 07/05/2010, 02/09/2001 HPV Vaccines Completed 08/06/2010, 0711/2007, 03/10/2008 Pneumococcal vaccine <65 Aged Out No longer eligible based on patient's age to complete this topic [place] [place] [address] Care Teams Shoe Salesman Relationship Specialty Start Date End Date Oc Quan NP PCP - General 02/08/19
--- OUTSIDE RECORDS SUMMARY | 2024-12-29 09:26 | XMS_ITS | Clinical Summary ---
Author Organization [facility] Address [address] [place] [address] Care Team Providers Care Community Health Nurse Staff Name Role Phone Oc Quan FINISH REMOVER-TOPOLOGY PROFESSOR Primary Care Pro vider Cony Hebert FINISH REMOVER-TOPOLOGY PROFESSOR Unavailable Source Comments [facility],non-owned Affiliates and Associated Physician Practices is amultiple site organization consisting of ambulatory clinics and hospital sitesin [place], [place], [place] and [place]. This disclosure is being madepursuant to the Care Everywhere program and may not contain all information available regarding this patient. Last updated 18.[facility] [employer] Allergies No known active allergies Medications * [...] 16 Assessment & Plan (12/31/2016 1:27 PM CONSUMER MARKETING SPECIALIST): Assessment: 16 yo female with previous suicide [...] following Assessment & Plan (12/31/2016 1:00 PM CONSUMER MARKETING SPECIALIST): Assessment: 16 yo female with previous suicide [...] following Assessment & Plan (12/31/2016 11:44 AM CONSUMER MARKETING SPECIALIST): Assessment: 16 y.o. F with complex psychiatric [...] q8h Assessment & Plan (12/30/2016 1:22 PM CONSUMER MARKETING SPECIALIST): Assessment: 16 y.o. F with complex psychiatric [...] q8h Assessment & Plan (12/30/2016 1:04 PM CONSUMER MARKETING SPECIALIST): Assessment: 16 yo female with previous suicide [...] ambulation Assessment & Plan (12/30/2016 11:05 AM CONSUMER MARKETING SPECIALIST): Assessment: 16 yo female with previous suicide [...] ambulation Assessment & Plan (12/29/2016 12:00 PM CONSUMER MARKETING SPECIALIST): Assessment: 16 yo female with previous suicide [...] today Assessment & Plan (12/29/2016 11:14 AM CONSUMER MARKETING SPECIALIST): Assessment: 16 yo female with previous suicide [...] today Assessment & Plan (12/29/2016 11:07 AM CONSUMER MARKETING SPECIALIST): Assessment: 16 y.o. F with complex psychiatric [...] q8h Assessment & Plan (12/28/2016 2:09 PM CONSUMER MARKETING SPECIALIST): Assessment: 16 yo female with previous suicide [...] following Assessment & Plan (12/28/2016 12:37 PM CONSUMER MARKETING SPECIALIST): Assessment: 16 yo female with previous suicide [...] following Assessment & Plan (12/28/2016 9:30 AM CONSUMER MARKETING SPECIALIST): Assessment: Isabel Kuo is a 16 yo [...] clear Assessment & Plan (12/26/2016 11:58 AM CONSUMER MARKETING SPECIALIST): Assessment: Isabel Kuo is a 16 yo [...] are refusing inpatient psychiaty at this time. office services manager has been consulted for further discharge planning and placement. Plan: - Await social work program coordinator recommendations -refusing inpatient psychiatry facility at this time -cancelled [facility] -refusing [facility] inpatient facility at this time - [...] features Assessment & Plan (12/31/2016 1:26 PM CONSUMER MARKETING SPECIALIST): Assessment: 16 yo female with previous suicide attempts and inpatient psych admissions, presenting following intentional drug overdose of lamictal and clonazepam requiring intubation. Plan: - to be seen by [facility] - safety aide, tray Assessment & Plan (12/31/2016 1:00 PM CONSUMER MARKETING SPECIALIST): Assessment: 16 yo female with previous suicide attempts and inpatient psych admissions, presenting following intentional drug overdose of lamictal and clonazepam requiring intubation. Plan: - to be seen by augustine Gerardo Assessment & Plan (12/30/2016 1:04 PM CONSUMER MARKETING SPECIALIST): Assessment: 16 yo female with previous suicide attempts and inpatient psych admissions, presenting following intentional drug overdose of lamictal and clonazepam requiring intubation. Plan: - to be seen by augustine Gerardo Assessment & Plan (12/29/2016 12:00 PM CONSUMER MARKETING SPECIALIST): Assessment: 16 yo female with previous suicide attempts and inpatient psych admissions, presenting following intentional drug overdose of lamictal and clonazepam requiring intubation. Plan: - to be seen by augustine Gerardo Assessment & Plan (12/29/2016 11:14 AM CONSUMER MARKETING SPECIALIST): Assessment: 16 yo female with previous suicide attempts and inpatient psych admissions, presenting following intentional drug overdose of lamictal and clonazepam requiring intubation. Plan: - to be seen by augustine Gerardo Assessment & Plan (12/28/2016 2:06 PM CONSUMER MARKETING SPECIALIST): Assessment: 16 yo female with previous suicide attempts and inpatient psych admissions, presenting following intentional drug overdose of lamictal and clonazepam requiring intubation. Plan: - to be seen by augustine Gerardo Assessment & Plan (12/28/2016 12:34 PM CONSUMER MARKETING SPECIALIST): Assessment: 16 yo female with previous suicide [...] Roland coma scale total score 3-8 12/28/2016 Family History Medical History Relation Name Comments Asthma Neg Hx CVA Neg Hx Cancer - Breast Neg Hx Cancer - Other Neg Hx Cancer - Skin, Melanoma Neg Hx Cancer - Skin, Non Melanoma Neg Hx Eczema Neg Hx Hemophilia Neg Hx Psoriasis Neg Hx Social History Tobacco Use Types Packs/Day Years [...] Comments Blood Pressure 100/70 11/13/2022 9:05 AM CONSUMER MARKETING SPECIALIST Pulse 97 11/13/2022 9:05 AM CONSUMER MARKETING SPECIALIST Temperature 36.8 C (98.2 F) 11/13/2022 9:05 AM CONSUMER MARKETING SPECIALIST Respiratory Rate 20 12/31/2016 7:50 PM CONSUMER MARKETING SPECIALIST Oxygen Saturation 99% 11/13/2022 9:05 AM CONSUMER MARKETING SPECIALIST Inhaled Oxygen Concentration 21% 12/27/2016 1 :59 PM CONSUMER MARKETING SPECIALIST Weight 86 kg (189 lb 9.6 oz) 11/13/2022 9:05 AM CONSUMER MARKETING SPECIALIST Height 155.6 cm (5' 1.25 ) 12/16/2017 8:36 AM CS T Body Mass Index 35.53 12/16/2017 8:36 AM CONSUMER MARKETING SPECIALIST Plan of Treatment Health Maintenance Due Date Last Done Comments HIV SCREENING 2014 HPV VACCINE (1 - 3-dose series) 2014 HEPATITIS C SCREENING 01/08/2017 CHLAMYDIA/GONORRHEA SCREENING 08/10/2017 08/10/2016 DTAP/TDAP/TD VACCINES (1 - Tdap) 2018 HEPATITIS B VACCINE (1 of 3 - 19+ 3-dose series) 2018 COVID-19 VACCINE (2023-2 5 season) 2024 INFLUENZA VACCINE (#1) 2024 DEPRESSION SCREENING 11/09/2024 PAP SMEAR 10/09/2025 10/09/2022, 10/09/2022 ZOSTER VACCINE (1 of 2) 2049 HIB VACCINE Aged Out No longer eligi ble based on patient's age to complete this topic MENINGOCOCCAL (Group B) VACCINE Aged Out No longer eligible b ased on patient's age to complete this topic MENINGOCOCCAL VACCINE Aged Out No payal suzette eligible based on patient's age to complete this topic PNEUMOCOCCAL VACCINE Aged Out No long er eligible based on patient's age to complete this topic Procedures Procedure Name Priority Date/Time Associated Diagnosis Comments CHLAMYDIA + GC AMPLIFIED PROBE Routine 08/10/2016 9:49 AM CDT from Last 3 Months or Most Recently Relevant to Health Maintenance Results * CHLAMYDIA + GC AMPLIFIED PROBE (08/10/2016 9:49 AM CDT) Chlamydia Amplified Probe Negative Negative 08/11/2016 11:18 AM CDT [facility] GC Amplified Probe Negative Negative 08/11/2016 11:18 AM CDT [facility] Urine URINE / Unknown 08/10/2016 9 :49 AM CDT 08/10/2016 10:02 AM CDT Narrative [facility] - 08/11/2016 11:18 AM CDT This test was developed and its performance characteristics determined by the [facility], [facility]. Female urine specimens tested by the [facility] [place] have not been cleared or approved by [...] Zafar MD LAB - MICROBIOLOGY O RDERABLES [facility] [address] [place], [place] [address], [facility] [phone] from Last 3 Months or Most Recently Relevant to Health Maintenance Advance Directives * Full Code (Latest Code Status on File) Date Activated Date Inactivated Comments 12/26/2016 7:42 AM 12/31/2016 9:24 PM * Full Code Date Activated Date Inactivated Comments 08/09/2016 10:38 PM 08/13/2016 4:55 PM Care Teams Community Health Nurse Staff Relationship Specialty Start Date End Date Oc Quan APRN-CNP [address] [place] [phone] PCP - General Nurse Practitioner 08/09/16 Cony Hebert APRN-TOPOLOGY PROFESSOR [address] [place] [phone] Legal Compliance Officer Nurse Practitioner 11/13/22
--- OUTSIDE RECORDS SUMMARY | 2024-12-29 09:26 | XMS_ITS | Encounter Summary ---
Author Organization [facility] Address [address] [place] [address] Care Team Providers Care Wire Inspector Name Role Phone Unavailable Primary Care Provider Unavailabl e Encounter Details Date Type Department Care Team (Late st Contact Info) Description 12/27/2024 External Device Data [facility]CTION Provider, Abstract NO ADDRESS ON FILE Social History Tobacco Use Types Packs/Day Years Used Date Smoking Tobacco: Never Smokeless Tobacco: Never Comments No Sex and Gender Information Value Date Recorded Sex Assigned at Not on file Legal Sex Female 9:30 AM ELECTRIC RELAY TESTER Gender Identity Not on file Sexual Orientation Not on file documented as of this encounter Plan of Treatment Not on file documented as of this encounter Visit Diagnoses Not on filedocumented in this encounter
[2024-12-29 09:46] LABS: Hematocrit 41.5 % (37.0-47.0); Hemoglobin 13.3 g/dL (12.0-15.0); Mean Corpuscular Hemoglobin 28.2 pg (26-34); Mean Corpuscular Volume 88.1 fl (80-100); Platelet Count Result 441 k/mm3 (150-375); Red Blood Count 4.71 M/mm3 (4.2-5.4); Red Cell Distribution Width 14.4 % (11.5-14.5); White Blood Count 10.4 K/mm3 (4.5-10.0)
[2024-12-29 10:12] LABS: LDL Cholesterol Direct 115 mg/dL
[2024-12-29 10:42] LABS: Alanine Aminotransferase 36 U/L (6-35); Albumin Level 4.3 g/dL (3.5-5.1); Alkaline Phosphatase 119 U/L (38-126); Anion Gap 10 mmol/L (4-12); Aspartate Amino Transferase 26 U/L (14-36); Bilirubin,Total 0.6 mg/dL (0.2-1.3); Blood Urea Nitrogen 11 mg/dL (7-17); Calcium 9.5 mg/dL (8.4-10.2); Carbon Dioxide 27 mmol/L (22-30); Chloride 101 mmol/L (98-107); Cholesterol 189 mg/dL (0-200); Estimated Glomerular Filt Rate > 60; Glucose 97 mg/dL (65-110); HDL Direct 47 mg/dL; Potassium 4.2 mmol/L (3.4-5.0); Sodium 138 mmol/L (137-145); Transferrin 273 mg/dL (206-381); Triglycerides 100 mg/dL (<150)
[2024-12-29 11:05] LABS: Free T4 Free Thyroxine 1.22 ng/dL (0.78-2.19)
[2024-12-29 11:48] LABS: Iron 53 ug/dL (37-170); Percent Iron Saturation 15 % (20-50)
[2025-01-02 16:12] LABS: Immunoglobulin A 226 mg/dL (47-310); TTG IGA AB <1.0 U/mL
== END 2024-12-29 09:15 | disposition home or self-care (01) ==
LOC: ANHLAB 09:16
PROVIDERS: PCP Nurse Practitioner Family; Visit Provider Internal Medicine Endocrinology, Diabetes & Metabolism
DX: E04.1 Nontoxic single thyroid nodule (principal); E28.2 Polycystic ovarian syndrome; E55.9 Vitamin D deficiency, unspecified; R73.03 Prediabetes; R19.7 Diarrhea, unspecified
CPT/HCPCS: 36415; 80053; 80061; 82306; 82784; 83036; 83540; 83550; 84439; 84443; 84466; 85027; 86364; 87086

== ENCOUNTER 2025-09-30 10:32 | Outpatient (CLI) | payer OTHER, SELFPAY ==
--- OUTSIDE RECORDS SUMMARY | 2025-09-30 10:35 | XMS_ITS | Clinical Summary ---
Author Organization [facility] Address [address] [place] [address] Care Team Providers Care Auto Hauler Name Role Phone Unavailable Primary Care Provider Unavailabl e Allergies No known active allergies Medications methylphenidate ER 36 mg tablet,extended release 24 hr 10/30/2024 Activ e Active Problems No known active problems Encounters Date Type Department Care Team Description 08/08/2025 External Device Data [facility] ABSTRACTION Provider, Abstract from Last 3 Months Social History Tobacco Use Types Packs/Day Years Used Date Smoking Tobacco: Never Smokeless Tobacco: Never Tobacco Cessation:Counseling Given: Not Answered Comments No Sex and Gender Information Value Date Recorded Sex Assigned at Not on file Legal Sex Female 9:30 AM SUPERVISOR GROWER Gender Identity Not on file Sexual Orientation Not on file Last Filed Vital Signs Vital Sign Reading Time Taken Comments Blood Pressure 127/90 11/25/2024 9:38 AM SUPERVISOR GROWER Pulse 120 11/25/2024 9:38 AM SUPERVISOR GROWER Temperature 37.1 C (98.7 F) 11/25/2024 9:38 AM SUPERVISOR GROWER Respiratory Rate 18 11/25/2024 9:38 AM SUPERVISOR GROWER Oxygen Saturation 98% 11/25/2024 9:38 AM SUPERVISOR GROWER Inhaled Oxygen Concentration - - Weight 106.6 kg (235 lb) 11/25/2024 9:38 AM SUPERVISOR GROWER Height 157.5 cm (5' 2) 11/25/2024 9:38 AM SUPERVISOR GROWER Body Mass Index 42.98 11/25/2024 9:38 AM SUPERVISOR GROWER Plan of Treatment Health Maintenance Due Date Last Done Comments HPV VACCINES (1 - 3-dose series) 2014 DTAP/TDAP/TD VACCINES (1 - Tdap) 2018 HEPATITIS B VACCINES (1 of 3 - 19+ 3-dose series) 05/2018 HPV/Cotest (21-29) 01/14/2020 INFLUENZA VACCINE (#1) 2025 CERVICAL CANCER SCREENING 10/09/2025 PAP SMEAR 10/09/2025 10/09/2022 Insurance [employer] Backpack [id number]
[2025-09-30 11:01] LABS: Hematocrit 41.8 % (37.0-47.0); Hemoglobin 13.6 g/dL (12.0-15.0); Immature Granulocyte Percent A 0.1 % (0-0.5); Lymphocytes Absolute Auto 2.78 K/mm3 (0.9-3.2); Mean Corpuscular HGB Conc 32.5 g/dl (32-36); Mean Corpuscular Hemoglobin 28.7 pg (26-34); Mean Corpuscular Volume 88.2 fl (80-100); Nucleated Red Blood Cells Absolute Auto 0.000 K/mm3 (0.0-0.012); Nucleated Red Blood Cells Perc 0.0 % (0.0-0.2); Platelet Count Result 394 k/mm3 (150-375); Red Blood Count 4.74 M/mm3 (4.2-5.4); White Blood Count 7.6 K/mm3 (4.5-10.0)
[2025-09-30 11:12] LABS: Hemoglobin A1C 5.6 % (<5.7)
[2025-09-30 11:35] LABS: Alanine Aminotransferase 44 U/L (6-35); Albumin Level 4.3 g/dL (3.5-5.1); Alkaline Phosphatase 107 U/L (38-126); Anion Gap 7 mmol/L (4-12); Aspartate Amino Transferase 25 U/L (14-36); Bilirubin,Total 0.6 mg/dL (0.2-1.3); Blood Urea Nitrogen 8 mg/dL (7-17); Calcium 9.6 mg/dL (8.4-10.2); Carbon Dioxide 27 mmol/L (22-30); Chloride 103 mmol/L (98-107); Cholesterol 223 mg/dL (0-200); Estimated Glomerular Filt Rate > 60; Glucose 95 mg/dL (65-110); HDL Direct 37 mg/dL; Iron 58 ug/dL (37-170); Potassium 4.6 mmol/L (3.4-5.0); Sodium 137 mmol/L (137-145); Total Protein 7.9 g/dL (6.3-8.2); Triglycerides 85 mg/dL (<150)
[2025-09-30 11:50] LABS: Percent Iron Saturation 18 % (20-50)
[2025-09-30 11:51] LABS: Free T4 Free Thyroxine 1.32 ng/dL (0.78-2.19)
[2025-09-30 12:08] LABS: Thyroid Stimulating Hormone Reflex 0.802 uIU/mL (0.465-4.68)
[2025-09-30 12:18] LABS: Ferritin 32.40 ng/mL (6.24-137)
== END 2025-09-30 10:33 | disposition home or self-care (01) ==
PROVIDERS: PCP Nurse Practitioner Family; Visit Provider Internal Medicine Endocrinology, Diabetes & Metabolism
DX: E04.1 Nontoxic single thyroid nodule (principal); R73.03 Prediabetes; D72.829 Elevated white blood cell count, unspecified; D75.839 Thrombocytosis, unspecified; E61.1 Iron deficiency; F90.2 Attention-deficit hyperactivity disorder, combined type; E28.2 Polycystic ovarian syndrome; E66.01 Morbid (severe) obesity due to excess calories; Z68.41 Body mass index [BMI] 40.0-44.9, adult; E55.9 Vitamin D deficiency, unspecified; R74.01 Elevation of levels of liver transaminase levels; Z00.00 Encounter for general adult medical examination without abnormal findings
CPT/HCPCS: 36415; 80053; 80061; 82306; 82728; 83036; 83540; 83550; 84439; 84443; 85025

== ENCOUNTER 2025-11-03 09:41 | Outpatient (CLI) | payer OTHER, SELFPAY ==
--- NOTE | ~2025-11-03 | US_ITS ---
US thyroid INDICATION: Dysphasia and enlarged thyroid. TECHNIQUE: Real-time sonographic images of the thyroid gland were obtained. COMPARISON: Ultrasound dated 08/06/2024 FINDINGS: The right thyroid lobe measures 5.3 x 1.8 x 1.8 cm. The left thyroid lobe measures 5.5 x 1.6 x 1.8 cm. There is continued enlargement of isthmus nodule measuring 3.1 x 1.9 x 2.7 cm compared with 2.3 x 2.1 x 1.6 cm on 12/10/2021 and 3 x 2.3 x 1.6 cm on 08/06/2024. This mass is solid, hypoechoic, wider than tall, smoothly marginated without echogenic foci, TR 4. Normal vascular flow is present. IMPRESSION: 1. Continued enlargement of thyroid mass involving the isthmus now measuring 3.1 x 2.7 x 1.9 cm, TR 4. Repeat biopsy recommended. Reviewed, dictated and finalized at location O[facility] IMPRESSION: 1. Continued enlargement of thyroid mass involving the isthmus now measuring 3 .1 x 2.7 x 1.9 cm, TR 4. Repeat biopsy recommended.
--- OUTSIDE RECORDS SUMMARY | 2025-11-03 09:45 | XMS_ITS | Clinical Summary ---
Author Organization [facility] Address [address] [place] [address] Care Team Providers Care Radioisotope Technician Name Role Phone Cony Hebert DRY WALL PLASTERER-SPEECH AND LANGUAGE SPECIALIST Unavailable Denita Harirs DRY WALL PLASTERER-SPEECH AND LANGUAGE SPECIALIST Primary Care Provider + Source Comments [facility],non-owned Affiliates and Associated Physician Practices is amultiple site organization consisting of ambulatory clinics and hospital sitesin [place], [place], [place] and [place]. This disclosure is being madepursuant to the Care Everywhere program and may not contain all information available regarding this patient. Last updated 18.[facility] Allergies No known active allergies Medications * This document contains information received from the source organization and may not represent a complete record from that organization. * Be aware that medications may not be up to date on this document. Alwaysverify current medications with the patient. mirtazapine (REMERON) 15 MG tablet Take 15 mg by mouth at bedtime Active medroxyPROGESTE Tom (Depo-Provera) 150 MG/ML vial Inject 150 mg into muscle Every 90 days Active buPROPion XL 24hr (WELLBUTRIN-XL) 300 MG tablet Take 300 mg by mouth every morning Active doxycycline monohydrate 100 MG tabletIndicatio ns:Acne Vulgaris Take 1 tablet by mouth 2 times daily Reasons: Common Acne 60 tablet 2 06/16/20 19 Active Additional Information Patient not taking.Reported on 11/13/2022 erythromycin (ERYDERM) 2 % solution Apply to face area daily. 30 days supply. 60 mL 2 06/17/20 19 Active Additional Information Patient not taking.Reported on 11/13/2022 adapalene (DIFFERIN) 0.1 % gel Pea sized amount to entire face at night.. 30 days supply. 45 g 2 06/17/20 19 Active Additional Information Patient not taking.Reported on 11/13/2022 dulaglutide (Trulicity) 0.75 MG/0.5ML injection Trulicity 0.75 mg/0.5 mL subcutaneous pen injector INJECT 0.75MG SUBCUTANEOUSLY EVERY WEEK AT DINNER FOR DIABETES Active famotidine (Pepcid) 40 MG tablet 11/12/19 23 Active pantoprazole EC (Protonix) 40 MG tablet TAKE ONE TABLET BY MOUTH EVERY DAY FOR STOMACH 10/28/20 22 Active spironolactone (Aldactone) 50 MG tablet spironolactone 50 mg tablet TAKE TWO TABLETS BY MOUTH EVERY DAY Active Active Problems Problem Noted Date Diagnosed Date Intentional drug overdose of clonazepam 08/09/20 16 Assessment & Plan (12/31/2016 1:27 PM LATEX CASTER): Assessment: 16 yo female with previous suicide [...] following Assessment & Plan (12/31/2016 1:00 PM LATEX CASTER): Assessment: 16 yo female with previous suicide [...] following Assessment & Plan (12/31/2016 11:44 AM LATEX CASTER): Assessment: 16 y.o. F with complex psychiatric [...] q8h Assessment & Plan (12/30/2016 1:22 PM LATEX CASTER): Assessment: 16 y.o. F with complex psychiatric [...] q8h Assessment & Plan (12/30/2016 1:04 PM LATEX CASTER): Assessment: 16 yo female with previous suicide [...] ambulation Assessment & Plan (12/30/2016 11:05 AM LATEX CASTER): Assessment: 16 yo female with previous suicide [...] ambulation Assessment & Plan (12/29/2016 12:00 PM LATEX CASTER): Assessment: 16 yo female with previous suicide [...] today Assessment & Plan (12/29/2016 11:14 AM LATEX CASTER): Assessment: 16 yo female with previous suicide [...] today Assessment & Plan (12/29/2016 11:07 AM LATEX CASTER): Assessment: 16 y.o. F with complex psychiatric [...] q8h Assessment & Plan (12/28/2016 2:09 PM LATEX CASTER): Assessment: 16 yo female with previous suicide [...] following Assessment & Plan (12/28/2016 12:37 PM LATEX CASTER): Assessment: 16 yo female with previous suicide [...] following Assessment & Plan (12/28/2016 9:30 AM LATEX CASTER): Assessment: Isabel Kuo is a 16 yo [...] clear Assessment & Plan (12/26/2016 11:58 AM LATEX CASTER): Assessment: Isabel Kuo is a 16 yo [...] are refusing inpatient psychiaty at this time. instructional services specialist has been consulted for further discharge planning and placement. Plan: - Await social work nurse recommendations -refusing inpatient psychiatry facility at this time -cancelled [facility] -refusing [facility] inpatient facility at this time [...] features Assessment & Plan (12/31/2016 1:26 PM LATEX CASTER): Assessment: 16 yo female with previous suicide attempts and inpatient psych admissions, presenting following intentional drug overdose of lamictal and clonazepam requiring intubation. Plan: - to be seen by [facility] - product safety lead, tray Assessment & Plan (12/31/2016 1:00 PM LATEX CASTER): Assessment: 16 yo female with previous suicide attempts and inpatient psych admissions, presenting following intentional drug overdose of lamictal and clonazepam requiring intubation. Plan: - to be seen by augustine Gerardo Assessment & Plan (12/30/2016 1:04 PM LATEX CASTER): Assessment: 16 yo female with previous suicide attempts and inpatient psych admissions, presenting following intentional drug overdose of lamictal and clonazepam requiring intubation. Plan: - to be seen by augustine Gerardo Assessment & Plan (12/29/2016 12:00 PM LATEX CASTER): Assessment: 16 yo female with previous suicide attempts and inpatient psych admissions, presenting following intentional drug overdose of lamictal and clonazepam requiring intubation. Plan: - to be seen by augustine Gerardo Assessment & Plan (12/29/2016 11:14 AM LATEX CASTER): Assessment: 16 yo female with previous suicide attempts and inpatient psych admissions, presenting following intentional drug overdose of lamictal and clonazepam requiring intubation. Plan: - to be seen by augustine Gerardo Assessment & Plan (12/28/2016 2:06 PM LATEX CASTER): Assessment: 16 yo female with previous suicide attempts and inpatient psych admissions, presenting following intentional drug overdose of lamictal and clonazepam requiring intubation. Plan: - to be seen by augustine Gerardo Assessment & Plan (12/28/2016 12:34 PM LATEX CASTER): Assessment: 16 yo female with previous suicide [...] Roland coma scale total score 3-8 12/28/2016 Encounters Date Type Department Care Team Description 10/11/2025 Travel from Last 3 Months Family History Medical History Relation Name Comments [...] = 0.6 oz pur e alcohol) Occasional Comments Unknown Sex and Gender Information Value Date Recorded Sex Assigned at Not on file Legal Sex Female 6:48 PM CDT Gender Identity Not on file Sexual Orientation Not on file Last Filed Vital Signs Vital Sign Reading Time Taken Comments Blood Pressure 100/70 11/13/2022 9:05 AM LATEX CASTER Pulse 97 11/13/2022 9:05 AM LATEX CASTER Temperature 36.8 C (98.2 F) 11/13/2022 9:05 AM LATEX CASTER Respiratory Rate 20 12/31/2016 7:50 PM LATEX CASTER Oxygen Saturation 99% 11/13/2022 9:05 AM LATEX CASTER Inhaled Oxygen Concentration 21% 12/27/2016 1 :59 PM LATEX CASTER Weight 86 kg (189 lb 9.6 oz) 11/13/2022 9:05 AM LATEX CASTER Height 155.6 cm (5' 1.25) 12/16/2017 8:36 AM CS T Body Mass Index 35.53 12/16/2017 8:36 AM LATEX CASTER Plan of Treatment Upcoming Encounters Date Type Department Care Team (Late st Contact Info) Description 11/22/2025 9:30 AM LATEX CASTER Testing Visit [facility] - ENT [address] [place] [phone] Tavon Calvo, PhD [address] [facility] [address] [place] [address] 11/22/2025 10:00 AM LATEX CASTER Office Visit [facility] - ENT [address] [place] [phone] Russ Rajput, DRY WALL PLASTERER-SPEECH AND LANGUAGE SPECIALIST [address] [facility] [address] [place] [address] Health Maintenance Due Date Last Done Comments HIV SCREENING 2014 HPV VACCINE (1 - 3-dose series) 2014 HEPATITIS C SCREENING 01/08/2017 DTAP/TDAP/TD VACCINES (1 - Tdap) 2018 HEPATITIS B VACCINE (1 of 3 - 19+ 3-dose series) 2018 DEPRESSION SCREENING 11/09/2024 COVID-19 VACCINE (1 - 2024-2 6 season) 2025 INFLUENZA VACCINE (#1) 2025 PAP SMEAR 10/09/2025 10/09/2022 ZOSTER VACCINE (1 of 2) 2049 HIB VACCINE Aged Out No longer eligi ble based on patient's age to complete this topic MENINGOCOCCAL (Group B) VACC INE SHARED DECISION-MAKING Aged Out No longer eligibl e based on patient's age to complete this topic MENINGOCOCCAL GROUPS A/C/Y/W VACCINE Aged Out No longer eligible b ased on patient's age to complete this topic PNEUMOCOCCAL VACCINE Aged Out No long er eligible based on patient's age to complete this topic Insurance [address] [address] * Guarantor: ISABEL FARIAS Account Type Relation to Patient Date of Phone Billing Address Personal/Family 2000 [address] * Guarantor: BRIDGETTE ROLLINS Account Type Relation to Patient Date of Phone Billing Address Behavior Health Mother Advance Directives * Full Code (Latest Code Status on File) Date Activated Date Inactivated Comments 12/26/2016 7:42 AM 12/31/2016 9:24 PM * Full Code Date Activated Date Inactivated Comments 08/09/2016 10:38 PM 08/13/2016 4:55 PM Care Teams Radioisotope Technician Relationship Specialty Start Date End Date Denita Harris APRN-SPEECH AND LANGUAGE SPECIALIST [address] [place] [phone] PCP - General Nurse Practitioner 10/11/25 Cony Hebert, DRY WALL PLASTERER-SPEECH AND LANGUAGE SPECIALIST [address] [place] [phone] Muskrat Trapper Nurse Practitioner 11/13/22
--- OUTSIDE RECORDS SUMMARY | 2025-11-03 09:45 | XMS_ITS | Encounter Summary ---
Author Organization [facility] Address [address] [place] [address] Care Team Providers Care Drywall Mechanic Name Role Phone Oc Quan NP Primary Care Provider [phone] Encounter Details Date Type Department Care Team (Latest Contact Info) Description 10/09/2025 Results Follow-Up [facility]iology at [place] [address] [place] [address] Sangeetha Zuniga PA [address] [place] [address] Transthoracic Echo (TTE) Complete W Doppler/CF Social History Tobacco Use Types Packs/Day Years Used Date Smoking Tobacco: Never Smokeless Tobacco: Never Alcohol Use Standard Drinks/Week Comments Never 0 (1 standard drink = 0.6 oz pur e alcohol) Personal Safety Answer Date Recorded Have you ever been in or are you currently in a harmful physical or emotional relationship or is someone making you feel afraid or unsafe? Denies 05/29/2023 Comments No Sex and Gender Information Value Date Recorded Sex Assigned at Not on file Legal Sex Female 8:53 PM REHABILITATION THERAPIST Gender Identity Not on file Sexual Orientation Not on file documented as of this encounter Plan of Treatment Not on file documented as of this encounter Visit Diagnoses Not on filedocumented in this encounter Care Teams Drywall Mechanic Relationship Specialty Start Date End Date Oc Quan NP PCP - General 02/08/19 documented as of this encounter
--- OUTSIDE RECORDS SUMMARY | 2025-11-03 09:45 | XMS_ITS | Clinical Summary ---
Author Organization [facility] Address [address] [place] [address] Care Team Providers Care Hourly Shift Manager Name Role Phone Unavailable Primary Care Provider [...] on file Legal Sex Female 9:30 AM EDUCATIONAL TECHNICIAN Gender Identity Not on file Sexual Orientation Not on file Last Filed Vital Signs Vital Sign Reading Time Taken Comments Blood Pressure 127/90 11/25/2024 9:38 AM EDUCATIONAL TECHNICIAN Pulse 120 11/25/2024 9:38 AM EDUCATIONAL TECHNICIAN Temperature 37.1 C (98.7 F) 11/25/2024 9:38 AM EDUCATIONAL TECHNICIAN Respiratory Rate 18 11/25/2024 9:38 AM EDUCATIONAL TECHNICIAN Oxygen Saturation 98% 11/25/2024 9:38 AM EDUCATIONAL TECHNICIAN Inhaled Oxygen Concentration - - Weight 106.6 kg (235 lb) 11/25/2024 9:38 AM EDUCATIONAL TECHNICIAN Height 157.5 cm (5' 2) 11/25/2024 9:38 AM EDUCATIONAL TECHNICIAN Body Mass Index 42.98 11/25/2024 9:38 AM EDUCATIONAL TECHNICIAN Plan of Treatment Health Maintenance Due Date Last Done Comments HPV VACCINES (1 - 3-dose series) 2014 DTAP/TDAP/TD VACCINES (1 - Tdap) 2018 HEPATITIS B VACCINES (1 of 3 - 19+ 3-dose series) 05/2018 HPV/Cotest (21-29) 01/14/2020 INFLUENZA VACCINE (#1) 2025 CERVICAL CANCER SCREENING 10/09/2025 PAP SMEAR 10/09/2025 10/09/2022 Insurance [employer] [id number]
--- OUTSIDE RECORDS SUMMARY | 2025-11-03 09:45 | XMS_ITS | Clinical Summary ---
Author Organization [facility] Address [address] [place] [address] Care Team Providers Care Talent Buyer Name Role Phone Pcp, No Primary Care Provider [phone] Allergies No known active allergies Medications pantoprazole (PROTONIX) 40 MG tablet TAKE ONE TABLET BY MOUTH EVERY DAY FOR STOMACH 10/28/2022 Active Social History Tobacco Use Types Packs/Day Years Used Date Smoking Tobacco: Never Smokeless Tobacco: Never Tobacco Cessation:Counseling Given: Yes Comments No Sex and Gender Information Value Date Recorded Sex Assigned at Not on file Legal Sex Female 9:46 PM EDT Gender Identity Not on file Sexual Orientation Not on file Last Filed Vital Signs Vital Sign Reading Time Taken Comments Blood Pressure 123/83 10/25/2023 3:55 PM PRODUCT MANAGEMENT MANAGER Pulse 104 10/25/2023 3:55 PM PRODUCT MANAGEMENT MANAGER Temperature 37.2 C (98.9 F) 10/25/2023 3:55 PM PRODUCT MANAGEMENT MANAGER Respiratory Rate 18 10/25/2023 3:55 PM PRODUCT MANAGEMENT MANAGER Oxygen Saturation 98% 10/25/2023 3:55 PM PRODUCT MANAGEMENT MANAGER Inhaled Oxygen Concentration - - Weight 99.8 kg (220 lb) 10/25/2023 3:55 PM PRODUCT MANAGEMENT MANAGER Height 154.9 cm (5' 1) 10/25/2023 3:55 PM PRODUCT MANAGEMENT MANAGER Body Mass Index 41.57 10/25/2023 3:55 PM PRODUCT MANAGEMENT MANAGER Plan of Treatment Health Maintenance Due Date Last Done Comments Depression: Screening Annual ly using PHQ-2/9 in Adults 18 yrs or above (or HM Modifier)([facility]) 2017 Hepatitis C Virus Infection in Adolescents and Adults: Screening (or Modifier) ([facility]) 2017 SDOH Screening Reminder: Nohemy garcia for all adults ([facility]) 2017 DTaP/Tdap/Td Vaccines ([facility]) (1 - Tdap) 2018 Cervical Cancer Screening: P ap every 3 yrs pts age 21-65 01/14/2020 Cervical Cancer: hrHPV alone or with cotesting Pap for Pts 30-65yrs screening every 5yrs ([facility]) 01/14/2020 Cervical Cancer Screenin 1-65 yrs of age (or Modifier) 10/10/2022 Tobacco Smoking Cessation: i n Adults excluding Women: Behavioral and Pharmacotherapy Interventions ([facility]) 10/25/2024 Flu Vaccination: Yearly for ages 18mos through 64 years (or Modifier)([facility]) 06/09/2025 COVID-19 Vaccine Screening: Initial Series and Booster Status ([facility]) ( - 2024- season) 2025 Cervical Cancer: Pap Screeni ng with Modifier timing ([facility]) 10/09/2025 10/09/2022 Zoster/Shingles Vaccine Seri es Screening: Adults aged 18+ yrs (or HM Modifiers)([facility]) (1 of 2) 2049 Pneumococcal Vaccination Scr eening: Pts 0-19 & 19-49 yrs of age ([facility]) Aged Out No longer eligible b ased on patient's age to complete this topic Medical Devices Not on file Care Teams Talent Buyer Relationship Specialty Start Date End Date Pcp, No PCP - General Family Medicine 06/08/22
--- OUTSIDE RECORDS SUMMARY | 2025-11-03 09:45 | XMS_ITS | Clinical Summary ---
Author Organization [facility] (formerly [facility]) at the [facility] Office Center Address [facility] [place] [address] Care Team Providers Care Trawl Net Maker Name Role Phone Avelina Oc MCRAE Primary Care Provider [phone] Allergies No known active allergies Medications ondansetron (ZOFRAN) 4 mg tablet Take 1 tablet (4 mg total) by mouth every 6 (six) hours 12 tablet 02/21/2022 Active traMADoL (ULTRAM) 50 mg tablet Take 1 tablet (50 mg total) by mouth every 6 (six) hours 12 tablet 05/29/2023 Active buPROPion XL (WELLBUTRIN XL) 300 mg 24 hr tablet Take 1 tablet (300 mg total) by mouth every morning Active FeroSuL 325 mg (65 mg iron) tablet Take 1 tablet (325 mg total) by mouth daily 08/18/2025 Active tirzepatide, weight loss, (ZEPBOUND) 2.5 mg/0.5 mL pen injector Inject 0.5 mL (2.5 mg total) under the skin every 7 days Active Active Problems Problem Noted Date Diagnosed Date 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 - Personal review of lab shows TSH of 0.8 recently - EKG shows NSR 90 beats per minute with incomplete right bundle-branch block and poor R-wave progression - Other labs within normal limits and denies any excessive caffeine intake - Will get 30 day event monitor and echocardiogram Orders: ECG 12 lead; Future Transthoracic Echo (TTE) Complete W Doppler/CF; Future MCT Mobile Cardiac Telemetry Event Monitor; Future Dizziness 10/04/2025 Assessment & Plan (10/04/2025 1:49 PM TRUCKLOAD OWNER OPERATOR): - Persistent dizziness for 3 weeks and near-syncope - Happens even while she is just sitting laying down or even standing from a sitting position - Was treated for possible ear infection with antibiotics and steroids without much improvement - Due to see physical therapist for inner ear issues - Orthostatics negative for any blood pressure drop - Will get echo and 30 day event monitor - CTA head at [facility] couple of weeks ago was unremarkable - Will get an MRI of the brain (PCP has ordered) - Will get carotid duplex Orders: MCT Mobile Cardiac Telemetry Event Monitor; Future US Carotids Duplex Bilateral; Future Mild episode of recurrent major depressive disor ezequiel 10/04/2025 Assessment & Plan (10/04/2025 1:49 PM TRUCKLOAD OWNER OPERATOR): - Has had issues with depression since age of 10 years - On Wellbutrin and she came off it but depression got worse - Advised to follow-up with PCP Obesity 02/10/2023 Assessment & Plan (10/04/2025 1:49 PM TRUCKLOAD OWNER OPERATOR): - BMI 40 -Has lost significant weight - On tries appetite since June 2020 Polycystic ovary syndrome 02/10/2023 Prediabetes 09/22/2022 Nany's thyroiditis 08/22/2022 Impaired fasting glucose 08/22/2022 Irregular periods 08/22/2022 Thyroid nodule 08/22/2022 Intentional drug overdose 08/09/2016 Overview (10/04/2025): Last Assessment & Plan: Assessment: 16 yo female with previous suicide [...] - SAS to evaluate - tox following Encounters Date Type Department Care Team Description 10/26/2025 Telephone [facility] Cardiology at [address] [address] [place] [address] Dorothy Thacker MD Heart Monitor 10/09/2025 Results Follow-Up [facility] Cardiology at [address] [address] Sangeetha Zuniga PA Transthoracic Echo (TTE) Complete W Doppler/CF 10/04/2025 3:25 PM TRUCKLOAD OWNER OPERATOR Ancillary Procedure [facility] Cardiology at [address] [address] [place] [address] Palpitations 10/04/2025 1:45 PM TRUCKLOAD OWNER OPERATOR Ancillary Procedure [facility] Cardiology at [address] [address] [place] [address] Palpitations; Dizziness 10/04/2025 1:30 PM TRUCKLOAD OWNER OPERATOR Office Visit [facility] Cardiology at [address] [address] [place] [address] Dorothy Thacker MD Palpitations (Primary Dx); Dizziness; Mild episode of recurrent major depressive disorder; Class 2 obesity due to excess calories without serious comorbidity with body mass index (BMI) of 37.0 to 37.9 in adult; History of Nany thyroiditis from Last 3 Months Surgical History Surgery Date Site/Laterality Comments CHOLECYSTECTOMY Medical History Medical History Date Comments Nany's disease Family History Medical History Relation Name Comments Stroke Father No Known Problems Mother Relation Name Status Comments Father Alive Mother Alive Social History Tobacco Use Types Packs/Day Years [...] on file Legal Sex Female 8:53 PM TRUCKLOAD OWNER OPERATOR Gender Identity Not on file Sexual Orientation Not on file Last Filed Vital Signs Vital Sign Reading Time Taken Comments Blood Pressure 114/74 10/04/2025 1:13 PM TRUCKLOAD OWNER OPERATOR Pulse 112 10/04/2025 1:13 PM TRUCKLOAD OWNER OPERATOR Temperature 36.8 C (98.2 F) 05/29/2023 1:37 PM CDT Respiratory Rate 16 10/04/2025 1:06 PM TRUCKLOAD OWNER OPERATOR Oxygen Saturation 99% 10/04/2025 1:13 PM TRUCKLOAD OWNER OPERATOR Inhaled Oxygen Concentration - - Weight 99.3 kg (219 lb) 10/04/2025 1:06 PM TRUCKLOAD OWNER OPERATOR Height 157.5 cm (5' 2) 10/04/2025 1:06 PM TRUCKLOAD OWNER OPERATOR Body Mass Index 40.06 10/04/2025 1:06 PM TRUCKLOAD OWNER OPERATOR Plan of Treatment Health Maintenance Due Date Last Done Comments Cervical Cancer Screening 1999 Depression Screening 1999 Hepatitis C Screening 1999 Regular Well Visit/Exam 18-64 2017 DTaP/Tdap/Td Vaccine (7 - Td or Tdap) 07/05/2020 07/05/2010, 03/17/2003, 06/06/2000, Additional history exists Hepatitis B Screening Completed 1999 , 1999, 1999 Varicella Vaccines Completed 07/05/2010, 02/09/2001 HPV Vaccines Completed 08/06/2010, 0711/2007, 03/10/2008 Influenza Vaccine Completed 07/31/2025, , 01/18/2018, Additional history exists Pneumococcal vaccine <65 Aged Out No longer eligible based on patient's age to complete this topic Procedures Procedure Name Priority Date/Time Associated Diagnosis Comments TRANSTHORACIC ECHO (TTE) COMPLETE W DOPPLER/CF WO CONTRAST Routine 10/04/2025 2:30 PM TRUCKLOAD OWNER OPERATOR Palpitations ECG 12-LEAD Routine 10/04/2025 1:08 PM TRUCKLOAD OWNER OPERATOR Palpitations from Last 3 Months Results * TRANSTHORACIC ECHO (TTE) COMPLETE W DOPPLER/CF WO CONTRAST (10/04/2025 2:30 PM TRUCKLOAD OWNER OPERATOR) EF Mod BP 70 % CONS SCIMAGE Anatomical Region Laterality Modality Ultrasound 10/04/2025 2:08 PM TRUCKLOAD OWNER OPERATOR Narrative 10/04/2025 2:45 PM TRUCKLOAD OWNER OPERATOR [facility] [place] [address] [place] [address] ECHOCARDIOGRAM Patient Name: TORITO POTTER : 2000 Study Date: 10/04/2025 2:08:49 PM Sex: F Creamery Worker: Nighat Dolan, JAROCHOCS, RVT, RDMS, RTR Ref Provider: DOROTHY THACKER Height(Cm): 157 BSA: 2.08 Weight(Kg): 99.3 Heart Rate: 90 Order Provider: DOROTHY THACKER PROCEDURES: Echocardiographic Report: Transthoracic Echocardiogram with complete 2D, M-Mode, Spectral and Color Flow Doppler examination. INDICATIONS: R00.2 Palpitations. MEASUREMENTS: 2D/MM Value Range Doppler Value Range IVSd 2D 1.09 cm [ 0.60 - 0.90 ] AV Peak Joe 1.1 m/s [ 1.0 - 1.7 ] LVIDd 2D 4.44 cm [ 3.80 - 5.20 ] AV Peak PG 4 mmHg LVIDs 2D 2.80 cm [ 2.20 - 3.50 ] AV Mean PG 2 mmHg LVPWd 2D 1.05 cm [ 0.60 - 0.90 ] AV VTI 22.0 cm EF Mod BP 70 % [ 54 - 74 ] BRITTANY VTI 1.9 cm2 LA Dimension MM 3.15 cm [ 2.70 - 3.80 ] LVOT Peak Joe 0.82 m/s [ 0.70 - 1.10 ] AoR Diam MM 2.55 cm [ 2.70 - 3.30 ] LVOT Diam 1.9 cm LVOT Peak PG 3 mmHg LVOT VTI 14.8 cm MV E Peak Joe 0.7 m/s [ 0.6 - 1.3 ] MV A Peak Joe 0.7 m/s [ 1.0 - 1.2 ] MV Decel Time 129.8 ms [ 104.0 - 258.0 ] MV E/A Ratio 1.0 PV Peak Joe 1.0 m/s [ 0.4 - 0.8 ] PV Peak PG 4 mmHg Lat E` Joe 0.09 m/s [ 0.10 - 0.15 ] E/E` 7.78 2D/MM Value Range Doppler Value Range - FINDINGS: BP: Blood pressure: 112/78 mmHg. Left Ventricle: Normal global and regional left ventricular systolic function. Ejection Fraction is measured at (Simpsons) 70 %. Right Ventricle: Normal right ventricular systolic function. Left Atrium: Left atrial size upper limits of normal. Right Atrium: The right atrium is normal in size. Atrial Septum: Normal appearing atrial septum. Mitral Valve: Normal mitral valve appearance and function. Aortic Valve: Aortic valve appears tricuspid in configuration. Tricuspid Valve: Normal tricuspid valve appearance and function. Pulmonic Valve: Grossly normal appearing pulmonic valve. Pericardium: Normal appearing pericardial thickness. Aortic Root and Aorta: Normal caliber aortic root. Aortic Arch: Normal caliber aortic arch. IVC: Normal appearance of the inferior vena cava. CONCLUSIONS: 1. Normal global and regional left ventricular systolic function. Ejection Fraction is measured at (Simpsons) 70 %. 2. Normal mitral valve appearance and function. 3. Aortic valve appears tricuspid in configuration. 4. Normal tricuspid valve appearance and function. 5. Normal appearing pericardial thickness. 6. Normal appearance of the inferior vena cava. Electronically Signed By: Dr. Dorothy Thacker MD 10/04/2025 2:44:50 PM TRUCKLOAD OWNER OPERATOR Procedure Note Khaja, Azamuddin, MD - 10/04/2025 [facility] [place] [address] [place] [address] ECHOCARDIOGRAM Patient Name: TORITO POTTER : 2000 Study Date: 10/04/2025 2:08:49 PM Sex: F Creamery Worker: Nighat Dolan, RDCS, RVT, RDMS, RTR Ref Provider:DOROTHY THACKER Height(Cm): 157 BSA: 2.08 Weight(Kg): 99.3 Heart Rate: 90 Order Provider: DOROTHY THACKER PROCEDURES: Echocardiographic Report: Transthoracic Echocardiogram with complete 2D, M-Mode, Spectral and ColorFlow Doppler examination. INDICATIONS: R00.2 Palpitations. MEASUREMENTS: 2D/MM Value Range Doppler ValueRange IVSd 2D 1.09 cm [ 0.60 - 0.90 ] AV Peak Joe 1.1 m/s[ 1.0 - 1.7 ] LVIDd 2D 4.44 cm [ 3.80 - 5.20 ] AV Peak PG 4 mmHg LVIDs 2D 2.80 cm [ 2.20 - 3.50 ] AV Mean PG 2 mmHg LVPWd 2D 1.05 cm [ 0.60 - 0.90 ] AV VTI 22.0cm EF Mod BP 70 % [ 54 - 74 ] BRITTANY VTI 1.9cm2 LA Dimension MM 3.15 cm [ 2.70 - 3.80 ] LVOT Peak Joe 0.82 m/s[ 0.70 - 1.10 ] AoR Diam MM 2.55 cm [ 2.70 - 3.30 ] LVOT Diam 1.9 cm LVOT Peak PG 3 mmHg LVOT VTI 14.8 cm MV E Peak Joe 0.7 m/s [ 0.6 - 1.3 ] MV A Peak Joe 0.7 m/s [ 1.0 - 1.2 ] MV Decel Time 129.8 ms [ 104.0 - 258.0 ] MV E/A Ratio 1.0 PV Peak Joe 1.0 m/s [ 0.4 - 0.8 ] PV Peak PG 4 mmHg Lat E` Joe 0.09 m/s [ 0.10 - 0.15 ] E/E` 7.78 2D/MM Value Range Doppler ValueRange - FINDINGS: BP: Blood pressure: 112/78 mmHg. Left Ventricle: Normal global and regional left ventricular systolic function. EjectionFraction is measured at (Simpsons) 70 %. Right Ventricle: Normal right ventricular systolic function. Left Atrium: Left atrial size upper limits of normal. Right Atrium: The right atrium is normal in size. Atrial Septum: Normal appearing atrial septum. Mitral Valve: Normal mitral valve appearance and function. Aortic Valve: Aortic valve appears tricuspid in configuration. Tricuspid Valve: Normal tricuspid valve appearance and function. Pulmonic Valve: Grossly normal appearing pulmonic valve. Pericardium: Normal appearing pericardial thickness. Aortic Root and Aorta: Normal caliber aortic root. Aortic Arch: Normal caliber aortic arch. IVC: Normal appearance of the inferior vena cava. CONCLUSIONS: 1. Normal global and regional left ventricular systolic function. EjectionFraction is measured at (Simpsons) 70 %. 2. Normal mitral valve appearance and function. 3. Aortic valve appears tricuspid in configuration. 4. Normal tricuspid valve appearance and function. 5. Normal appearing pericardial thickness. 6. Normal appearance of the inferior vena cava. Electronically Signed By: Dr. Dorothy Thacker MD 10/04/2025 2:44:50 PM TRUCKLOAD OWNER OPERATOR us Dorothy Thacker MD CV ECHO PROCEDURES Final Resu lt * ECG 12 lead (10/04/2025 1:08 PM TRUCKLOAD OWNER OPERATOR) us Dorothy Thacker MD ECG ORDERABLES Final Result from Last 3 Months Insurance [facility] HMO/PPO Address: [facility] [id number] [place] [id number] Care Teams Trawl Net Maker Relationship Specialty Start Date End Date Oc Quan NP PCP - General 02/08/19
== END 2025-11-03 09:42 | disposition home or self-care (01) ==
PROVIDERS: PCP Nurse Practitioner Family; Visit Provider Internal Medicine Endocrinology, Diabetes & Metabolism
DX: E04.1 Nontoxic single thyroid nodule (principal); R73.03 Prediabetes
CPT/HCPCS: 76536